=== PATIENT | male | born 1940 | race Caucasian/White ===

== ENCOUNTER → 2017-12-01 09:26 | Outpatient (CLI) | payer MEDICARE, SELFPAY ==
[2017-12-01 09:49] LABS: Basophils # 0.1 K/mm3 (0-0.2); Basophils % 0.8 % (0.1-2.0); Eosinophils # 0.4 K/mm3 (0.0-0.4); Eosinophils % 4.5 % (0.1-12.0); Hematocrit 50.3 % (42.0-52.0); Hemoglobin 16.5 g/dL (14.1-18.0); Lymphocytes # 4.3 K/mm3 (0.7-4.5); Lymphocytes % 52.1 K/mm3 (10-50); Mean Corpuscular HGB Conc 32.8 g/dL (31.8-35.4); Mean Corpuscular Hemoglobin 29.3 pg (27.0-31.2); Mean Corpuscular Volume 89.4 fl (80-94); Mean Platelet Volume 7.1 fl (7.4-10.4); Monocytes # 0.6 K/mm3 (0.1-1.0); Monocytes % 6.6 % (1.7-9.3); Platelet Count 272 K/mm3 (142-424); Red Blood Count 5.63 M/mm3 (4.60-6.20); Red Cell Distribution Width 14.3 % (11.5-17.5); White Blood Count 8.3 K/mm3 (4.8-10.8)
[2017-12-01 09:58] LABS: MANUAL DIFFERENTIAL MANUAL DIFFERENTIAL (MANUAL DIFF)
[2017-12-01 14:50] LABS: Eosinophils % 3 % (0-3); Lymphocytes % 59 % (10-50); Monocytes % 6 % (2-9); Neutrophils % 31 % (42-76); Total Cells Counted 100
[2017-12-01 14:51] LABS: Platelet Estimate Normal
[2017-12-01 14:52] LABS: RBC Morphology Normal
[2017-12-02 08:39] LABS: Free T4 (Free Thyroxine) 0.96 ng/dl (0.76-1.46)
[2017-12-02 08:52] LABS: Alanine Aminotransferase 35 U/L (12-78); Albumin Level 3.7 gm/dL (3.4-5.0); Albumin/Globulin Ratio 1.1 (1.1-1.8); Alkaline Phosphatase 60 U/L (46-116); Anion Gap 13.1 mEq/L (5-15); Aspartate Amino Transferase 14 U/L (15-37); Bilirubin,Total 0.5 mg/dL (0.2-1.0); Blood Urea Nitrogen 19 mg/dL (7-18); Calcium 8.8 mg/dL (8.5-10.1); Carbon Dioxide 29 mmol/L (21.0-32.0); Chloride 104 mmol/L (98-107); Creatinine,Serum 1.01 mg/dL (0.70-1.30); Estimated Glomerular Filt Rate 71 ml/min (>60); GFR (African American) 86 ML/MIN (>60); Globulin 3.5 gm/dl (1.3-3.2); Glucose 115 mg/dL (74-106); Potassium 4.1 mmoL/L (3.5-5.1); Sodium 142 mmol/L (136-145); Total Protein,Serum 7.2 gm/dL (6.4-8.2)
== END ==
PROVIDERS: Nurse Practitioner Family; Visit Provider Nurse Practitioner
DX: R53.83 Other fatigue (principal); C91.10 Chronic lymphocytic leukemia of B-cell type not having achieved remission; F17.200 Nicotine dependence, unspecified, uncomplicated
CPT/HCPCS: 36415; 80053; 82652; 84439; 84443; 85007; 85025

== ENCOUNTER → 2017-12-14 06:43 | Outpatient (CLI) | payer MEDICARE, SELFPAY ==
--- NOTE | 2017-12-14 06:45 | NM_ITS ---
History and Indications: Chest pain, shortness of breath tobacco use. Procedure: Patient exercised on Bashir protocol 6 minutes, resting heart rate was 58 beats prominent, resting blood pressure 136/83, with exercise maximum heart rate achieved was 105 bpm which is equal to 74% of the maximum predicted heart rate and a blood pressure was 168/84. Test was started due to shortness of breath patient denied any complained of chest pain, patient has adequate exercise capacity achieved 7mets of workload on treadmill, the blood pressure response to exercise was adequate, patient did not achieve the target heart rate. Electrocardiogram: Resting echocardiogram showed sinus bradycardia, with exercise there is [address] segment depression noted from the baseline EKG. The EKG portion of the exercise Myoview is positive for ischemia. Cardiac stress and resting SPECT images: Cardiac stress and resting SPECT images were obtained using technetium 99 Myoview 10.9 mCi at rest and 29.5 mCi at stress, gated SPECT further analysis of segmental wall motion and calculation of the ejection fraction also done. Cardiac stress and resting SPECT images show a fixed defect involving the posterobasal and inferoseptal wall consistent with area of prior myocardial scarring, without significant ricardo-infarct ischemia, computer derived ejection fraction is 61% with marked posterobasal and inferoseptal wall hypokinesis. Right ventricle is normal size and contractility. Conclusion: 1. The EKG portion of the exercise Myoview is positive for ischemia, patient has adequate exercise capacity achieved 7.0mets of workload on treadmill, the blood pressure response to exercise was adequate, test was stopped due to shortness of breath patient denied any complained of chest pain. Patient did not achieve the target heart rate. 2. Scintigraphic evidence of prior myocardial scarring involving the posterobasal and inferoseptal wall without significant reversible ischemia. Computer derived ejection fraction is 61% with segmental wall motion abnormality described above, right ventricle is normal size and contractility. 3. Abnormal exercise Myoview study.
--- NOTE | 2017-12-14 07:02 | CA_ITS ---
PROCEDURE: 2-D M-mode and color Doppler study INDICATIONS FOR THE TEST: Chest pain+ COPD Heart Murmur+ Tobacco Smoking+ Palpitations+ Fatigue Syncope Edema Hypertension Diabetes Mellitus Rheumatic Fever SOB+ZAMAN+Obesity Hyperlipidemia Family History HD+ Additional History dizziness, angina, CLL, Asthma PATIENT INFORMATION HEIGHT: 72 WEIGHT: 225 GENDER: Male B/P: 128/75 2-D/M-MODE INTERPRETATION: 2-D MEASUREMENTS OBSERVED VALUES IN CMS Right Ventricular Dimension (RVDd) Interventricular Septum (Thickness)(IVsd) Left Ventricular Internal Dimensions(LVIDd) Left Ventricular Posterior Wall (Thickness)(LVPWd) Aortic Root Aortic Cusp Separation Left Atrial Dimensions (LAD) 2D 1. Technically difficult study because of the patient's factor and poor acoustic windows, endocardial surfaces as well as the valvular structures of poorly visualized. 2. The left atrium is normal size, left ventricle is normal size, visually estimated ejection fraction 55% with no obvious regional wall motion abnormality. 3. The right atrium and right ventricle are mildly enlarged with normal contractility. 4. The aortic valve is minimally thickened and fibrosed. 5. The mitral and tricuspid valve leaflets are minimally thickened. 6. No significant pericardial effusion noted. 7. The pulmonic valve is poorly visualized. DOPPLER INTERROGATION: Doppler interrogation of the aortic, mitral and tricuspid valvular presence of mild mitral and tricuspid regurgitation, tricuspid regurgitant jet velocity is insufficient for calculation of the right ventricular systolic pressure, diastolic parameters are inconclusive. CONCLUSION: 1. Technically difficult study because of the patient's factor and poor acoustic windows as described above 2. Normal left ventricular size, preserved left ventricular systolic function, visually estimated ejection fraction 55% with no obvious regional wall motion abnormality, diastolic parameters are inconclusive. 3. Mild mitral and tricuspid regurgitation 4. Mildly enlarged right ventricle with normal contractility. 5. No significant pericardial effusion noted.
--- NOTE | 2017-12-14 07:14 | HMH.ITSHM ---
ASA FISH OIL GARLIC
== END ==
PROVIDERS: Family Provider Emergency Medicine; PCP Emergency Medicine; Visit Provider Internal Medicine
DX: R06.09 Other forms of dyspnea (principal); Z82.49 Family history of ischemic heart disease and other diseases of the circulatory system; F17.200 Nicotine dependence, unspecified, uncomplicated; I20.9 Angina pectoris, unspecified; C91.10 Chronic lymphocytic leukemia of B-cell type not having achieved remission
CPT/HCPCS: 78452; 93017; 93306; A9502

== ENCOUNTER → 2018-01-13 09:58 | Outpatient (CLI) | payer MEDICARE, SELFPAY ==
[2018-01-13 11:21] LABS: Anion Gap 11.3 mEq/L (5-15); Blood Urea Nitrogen 20 mg/dL (7-18); Carbon Dioxide 31 mmol/L (21.0-32.0); Chloride 107 mmol/L (98-107); Creatinine,Serum 0.94 mg/dL (0.70-1.30); Estimated Glomerular Filt Rate 78 ml/min (>60); GFR (African American) 94 ML/MIN (>60); Glucose 101 mg/dL (74-106); Potassium 4.3 mmoL/L (3.5-5.1); Sodium 145 mmol/L (136-145)
== END ==
PROVIDERS: Visit Provider Nurse Practitioner Family
DX: R79.9 Abnormal finding of blood chemistry, unspecified (principal)
CPT/HCPCS: 36415; 80048

== ENCOUNTER → 2018-02-06 11:02 | Outpatient (CLI) | payer MEDICARE, SELFPAY ==
--- NOTE | 2018-02-06 11:06 | XR_ITS ---
EXAM: XR lumbar spine min 4V HISTORY: ITS.REASON: Back Pain ORDERING PHYSICIAN: Enoc Jeffers MD PATIENT AGE: 77 years FINDINGS: Normal alignment. No fracture or dislocation. No lytic or blastic change. Mild multilevel endplate osteophytes are present with degenerative disc disease at L4-L5. Facet arthritic changes are present at L4-5 and L5-S1. There is mild degenerative disc disease also at L5-S1. IMPRESSION: Lumbar spondylosis with degenerative disc disease, facet arthritic change, and osteophytosis
--- NOTE | 2018-02-06 11:06 | XR_ITS ---
XR pelvis 1-2V HISTORY: ITS.REASON: Pain ORDERING PHYSICIAN: Enoc Jeffers MD PATIENT AGE: 77 years COMPARISON: FINDINGS: No obvious fracture or dislocation. No lytic or blastic change. There is mild sclerosis of the acetabular roof on the left and minimal osteophyte formation of the in inferior acetabulum on the left consistent with mild osteoarthritis. IMPRESSION: Mild osteoarthritis of the left hip
[2018-02-06 12:55] LABS: Basophils # 0.1 K/mm3 (0-0.2); Basophils % 0.7 % (0.1-2.0); Eosinophils # 0.4 K/mm3 (0.0-0.4); Hematocrit 51.9 % (42.0-52.0); Hemoglobin 17.4 g/dL (14.1-18.0); Lymphocytes # 5.4 K/mm3 (0.7-4.5); Mean Corpuscular HGB Conc 33.5 g/dL (31.8-35.4); Mean Corpuscular Hemoglobin 30.3 pg (27.0-31.2); Mean Corpuscular Volume 90.6 fl (80-94); Monocytes # 0.7 K/mm3 (0.1-1.0); Monocytes % 6.1 % (1.7-9.3); Neutrophils # 5.4 K/mm3 (1.8-7.8); Neutrophils % 45.2 % (37.0-80.0); Platelet Count 295 K/mm3 (142-424); Red Blood Count 5.73 M/mm3 (4.60-6.20); Red Cell Distribution Width 13.3 % (11.5-17.5)
[2018-02-06 13:40] LABS: Erythrocyte Sedimentation Rate 32 mm/hr (0-20)
[2018-02-06 14:15] LABS: Anion Gap 13.7 mEq/L (5-15); Blood Urea Nitrogen 19 mg/dL (7-18); Carbon Dioxide 29 mmol/L (21.0-32.0); Chloride 104 mmol/L (98-107); Creatinine,Serum 0.91 mg/dL (0.70-1.30); Estimated Glomerular Filt Rate 81 ml/min (>60); GFR (African American) 97 ML/MIN (>60); Glucose 99 mg/dL (74-106); Potassium 4.7 mmoL/L (3.5-5.1); Sodium 142 mmol/L (136-145)
[2018-02-09 06:19] LABS: Prostate Specific Ag 1.5 ng/mL (0.0-4.0)
[2018-02-09 06:20] LABS: PSA, Free 0.28 ng/mL
== END ==
PROVIDERS: PCP Emergency Medicine; Visit Provider Emergency Medicine
DX: M54.5 Low back pain (principal); R10.2 Pelvic and perineal pain; R35.0 Frequency of micturition
CPT/HCPCS: 36415; 72110; 72170; 80048; 84153; 84154; 85025; 85651

== ENCOUNTER → 2018-02-17 11:16 | Outpatient (CLI) | payer MEDICARE, SELFPAY ==
[2018-02-17 12:34] LABS: Chol/HDL Ratio 3.2 (1-3.5); Cholesterol 138 mg/dL (140-200); HDL Cholesterol 43 mg/dL (27-67); LDL Cholesterol 68 mg/dL (0-130); Triglycerides 136 mg/dL (30-200); VLDL Cholesterol 27 mg/dL (0-40)
== END ==
PROVIDERS: Visit Provider Emergency Medicine
DX: I25.10 Atherosclerotic heart disease of native coronary artery without angina pectoris (principal)
CPT/HCPCS: 36415; 80061

== ENCOUNTER → 2019-06-07 11:23 | Outpatient (CLI) | payer MEDICARE, SELFPAY ==
[2019-06-07 13:27] LABS: Alanine Aminotransferase 32 U/L (12-78); Albumin Level 3.7 gm/dL (3.4-5.0); Alkaline Phosphatase 85 U/L (46-116); Aspartate Amino Transferase 15 U/L (15-37); Bilirubin,Direct 0.1 mg/dL (0.0-0.2); Bilirubin,Indirect 0.3 mg/dL (0.0-0.9); Bilirubin,Total 0.4 mg/dL (0.2-1.0); Chol/HDL Ratio 4.1 (1-3.5); Cholesterol 145 mg/dL (140-200); HDL Cholesterol 35 mg/dL (27-67); LDL Cholesterol 56 mg/dL (0-130); Total Protein,Serum 7.3 gm/dL (6.4-8.2); Triglycerides 269 mg/dL (30-200); VLDL Cholesterol 54 mg/dL (0-40)
== END ==
PROVIDERS: Visit Provider Internal Medicine Cardiovascular Disease
DX: E78.5 Hyperlipidemia, unspecified (principal); F17.200 Nicotine dependence, unspecified, uncomplicated; I10 Essential (primary) hypertension; I25.10 Atherosclerotic heart disease of native coronary artery without angina pectoris
CPT/HCPCS: 80061; 80076

== ENCOUNTER → 2020-06-13 07:53 | Outpatient (CLI) | payer MEDICARE, SELFPAY ==
--- NOTE | 2020-06-13 07:53 | US_ITS ---
PROCEDURE: US ABD. AORTA SCREENING CLINICAL INDICATION: rule out AAA COMPARISON: No exams were available for comparison FINDINGS: No aortic aneurysm of the abdominal aorta evident. There is mild amount of plaque. Common iliacs have an unremarkable appearance bilaterally. IMPRESSION: No evidence of abdominal aortic aneurysm. Dictated by: Alvaro Padilla MD 06/13/2020 11:15 Alvaro Padilla MD in [facility] 06/13/2020 11:15
--- NOTE | 2020-06-13 07:56 | CA_ITS ---
APPROVED REPORT [employer] Worker: COREEN Laterality: Bilateral Study Quality: Good Indications: bilateral carotid bruits Doppler Spectral Velocity Analysis dICA (R) 84.50/28.30 cm/s dICA (L) 67.70/25.00 cm/s Nick (R) 114.90/25.40 cm/s Nick (L) 114.40/36.10 cm/s pICA (R) 95.80/27.80 cm/s pICA (L) 58.80/20.90 cm/s dCCA (R) 83.00/24.30 cm/s dCCA (L) 76.60/21.90 cm/s mCCA (R) 90.00/35.80 cm/s pCCA (L) 78.90/22.70 cm/s pCCA (R) 86.00/21.30 cm/s Vert (L) 57.40/17.90 cm/s Vert (R) 41.60/13.10 cm/s ICA/CCA 1.00 ICA/CCA 1.40 Findings Duplex evaluation demonstrates stenosis of the right proximal internal carotid artery <20% with PSV <140 cm/sec, EDV <100 cm/sec, and IC/CC Ratio <4.0.Duplex evaluation demonstrates stenosis of the left proximal internal carotid artery <20% with PSV <140 cm/sec, EDV <100 cm/sec, and IC/CC Ratio <4.0.Antegrade flow seen bilateral vertebral arteries. Conclusion Duplex evaluation demonstrates stenosis of the right proximal internal carotid artery <20% with PSV <140 cm/sec, EDV <100 cm/sec, and IC/CC Ratio <4.0.Duplex evaluation demonstrates stenosis of the left proximal internal carotid artery <20% with PSV <140 cm/sec, EDV <100 cm/sec, and IC/CC Ratio <4.0.Antegrade flow seen bilateral vertebral arteries. Electronically signed by : Alvaro Padilla MD 06/13/2020 15:25:30
== END ==
PROVIDERS: PCP Emergency Medicine; Visit Provider Internal Medicine Cardiovascular Disease
DX: E78.2 Mixed hyperlipidemia (principal); F17.200 Nicotine dependence, unspecified, uncomplicated; I10 Essential (primary) hypertension; I25.10 Atherosclerotic heart disease of native coronary artery without angina pectoris; R06.09 Other forms of dyspnea; R09.89 Other specified symptoms and signs involving the circulatory and respiratory systems; Z13.6 Encounter for screening for cardiovascular disorders
CPT/HCPCS: 76705; 93880

== ENCOUNTER → 2020-12-11 09:54 | Outpatient (CLI) | payer MEDICARE, SELFPAY ==
[2020-12-11 10:40] LABS: Bilirubin,Unconjugated 0.9 mg/dL (0.0-1.1)
[2020-12-11 10:41] LABS: Alanine Aminotransferase 26 U/L (12-78); Albumin Level 4.6 g/dl (3.5-5.0); Alkaline Phosphatase 80 U/L (38-126); Aspartate Amino Transferase 24 U/L (17-59); Chol/HDL Ratio 3.4 (1-3.5); Cholesterol 141 mg/dl (140-200); HDL Cholesterol 42 mg/dl (40-60); Total Protein,Serum 8.2 g/dl (6.3-8.2); Triglycerides 97 mg/dl (30-150); VLDL Cholesterol 19 mg/dL (0-40)
[2020-12-11 10:52] LABS: Direct LDL Cholesterol 73.01 mg/dL (100-129)
== END ==
PROVIDERS: Visit Provider Internal Medicine Cardiovascular Disease
DX: E78.2 Mixed hyperlipidemia (principal); F17.200 Nicotine dependence, unspecified, uncomplicated; I10 Essential (primary) hypertension; I25.10 Atherosclerotic heart disease of native coronary artery without angina pectoris
CPT/HCPCS: 36415; 80061; 80076

== ENCOUNTER → 2022-01-14 10:23 | Outpatient (CLI) | payer MEDICARE, SELFPAY ==
[2022-01-14 11:00] LABS: Basophils # 0.3 K/mm3 (0-0.2); Basophils % 2.4 % (0.1-2.0); Eosinophils # 0.3 K/mm3 (0.0-0.4); Eosinophils % 2.6 % (0.1-12.0); Hematocrit 51.1 % (42.0-52.0); Hemoglobin 16.7 g/dL (14.1-18.0); Lymphocytes # 5.7 K/mm3 (0.7-4.5); Lymphocytes % 52.1 % (10-50); Mean Corpuscular HGB Conc 32.7 g/dL (31.8-35.4); Mean Corpuscular Hemoglobin 30.2 pg (27.0-31.2); Mean Corpuscular Volume 92.2 fl (80-94); Mean Platelet Volume 7.8 fl (7.4-10.4); Monocytes # 0.6 K/mm3 (0.1-1.0); Monocytes % 5.3 % (1.7-9.3); Neutrophils # 4.1 K/mm3 (1.8-7.8); Neutrophils % 37.7 % (37.0-80.0); Platelet Count 261 K/mm3 (142-424); Red Blood Count 5.54 M/mm3 (4.60-6.20); Red Cell Distribution Width 13.8 % (11.5-17.5); White Blood Count 10.9 K/mm3 (4.8-10.8)
[2022-01-14 11:09] LABS: MANUAL DIFFERENTIAL MANUAL DIFFERENTIAL (MANUAL DIFF)
[2022-01-14 13:24] LABS: Chloride 106 mmol/L (98-107); Potassium 4.9 mmoL/L (3.5-5.1); Sodium 141 mmol/L (136-145)
[2022-01-14 13:26] LABS: Bilirubin,Unconjugated 0.6 mg/dL (0.0-1.1); Blood Urea Nitrogen 20 mg/dl (9-20); Estimated Glomerular Filt Rate 81 ml/min (>60); GFR (African American) 98 ML/MIN (>60)
[2022-01-14 13:27] LABS: Alanine Aminotransferase 34 U/L (12-78); Albumin Level 4.2 g/dl (3.5-5.0); Alkaline Phosphatase 75 U/L (38-126); Anion Gap 10.9 mEq/L (5-15); Aspartate Amino Transferase 30 U/L (17-59); Bilirubin,Direct 0.3 mg/dl (0.0-0.4); Bilirubin,Indirect 0.7 mg/dL (0.0-0.9); Calcium 8.8 mg/dl (8.4-10.2); Carbon Dioxide 29 mmol/L (22.0-30.0); Chol/HDL Ratio 3.4 (1-3.5); Cholesterol 121 mg/dl (140-200); Glucose 98 mg/dl (74-100); HDL Cholesterol 36 mg/dl (40-60); Total Protein,Serum 7.4 g/dl (6.3-8.2); Triglycerides 96 mg/dl (30-150); VLDL Cholesterol 19 mg/dL (0-40)
[2022-01-14 13:38] LABS: Direct LDL Cholesterol 62.69 mg/dL (100-129)
[2022-01-14 13:44] LABS: Free T4 (Free Thyroxine) 1.06 ng/dl (0.78-2.19)
[2022-01-14 13:58] LABS: Thyroid Stimulating Hormone 1.64 uIU/mL (0.465-4.68)
[2022-01-14 19:34] LABS: Eosinophils % 2 % (0-3); Lymphocytes % 47 % (10-50); Monocytes % 17 % (2-9); Neutrophils % 33 % (42-76); Platelet Estimate Normal; Total Cells Counted 100
== END ==
PROVIDERS: Visit Provider Internal Medicine
DX: C91.10 Chronic lymphocytic leukemia of B-cell type not having achieved remission (principal); E78.5 Hyperlipidemia, unspecified; F17.200 Nicotine dependence, unspecified, uncomplicated; I10 Essential (primary) hypertension; I20.8 Other forms of angina pectoris; R06.00 Dyspnea, unspecified; R09.89 Other specified symptoms and signs involving the circulatory and respiratory systems; Z82.49 Family history of ischemic heart disease and other diseases of the circulatory system
CPT/HCPCS: 36415; 80048; 80061; 80076; 83735; 84439; 84443; 85007; 85025

== ENCOUNTER → 2023-04-13 11:12 | Outpatient (CLI) | payer MEDICARE, SELFPAY ==
[2023-04-13 12:02] LABS: Basophils # 0.1 K/mm3 (0-0.2); Basophils % 0.7 % (0.1-2.0); Eosinophils # 0.4 K/mm3 (0.0-0.4); Eosinophils % 3.5 % (0.1-12.0); Hematocrit 51.6 % (42.0-52.0); Hemoglobin 16.3 g/dL (14.1-18.0); Lymphocytes # 5.5 K/mm3 (0.7-4.5); Lymphocytes % 49.5 % (10-50); Mean Corpuscular HGB Conc 31.6 g/dL (31.8-35.4); Mean Corpuscular Hemoglobin 28.8 pg (27.0-31.2); Mean Corpuscular Volume 90.9 fl (80-94); Mean Platelet Volume 7.6 fl (7.4-10.4); Monocytes # 0.6 K/mm3 (0.1-1.0); Monocytes % 5.2 % (1.7-9.3); Neutrophils # 4.6 K/mm3 (1.8-7.8); Neutrophils % 41.2 % (37.0-80.0); Platelet Count 249 K/mm3 (142-424); Red Blood Count 5.67 M/mm3 (4.60-6.20); Red Cell Distribution Width 13.8 % (11.5-17.5); White Blood Count 11.1 K/mm3 (4.8-10.8)
[2023-04-13 12:26] LABS: Alanine Aminotransferase 29 U/L (12-78); Albumin Level 4.5 g/dl (3.5-5.0); Alkaline Phosphatase 85 U/L (38-126); Anion Gap 10.4 mEq/L (5-15); Aspartate Amino Transferase 28 U/L (17-59); Bilirubin,Indirect 0.8 mg/dL (0.0-0.9); Bilirubin,Total 0.8 mg/dl (0.2-1.3); Blood Urea Nitrogen 19 mg/dl (9-20); Calcium 9.6 mg/dl (8.4-10.2); Carbon Dioxide 31 mmol/L (22.0-30.0); Chloride 106 mmol/L (98-107); Cholesterol 124 mg/dl (140-200); Estimated Glomerular Filt Rate 64 ml/min (>60); GFR (African American) 77 ML/MIN (>60); Glucose 106 mg/dl (74-100); HDL Cholesterol 41 mg/dl (40-60); Magnesium 2.1 mg/dl (1.6-2.3); Potassium 5.4 mmoL/L (3.5-5.1); Sodium 142 mmol/L (136-145); Total Protein,Serum 7.7 g/dl (6.3-8.2); Triglycerides 112 mg/dl (30-150); VLDL Cholesterol 22 mg/dL (0-40)
[2023-04-13 12:39] LABS: Direct LDL Cholesterol 65.79 mg/dL (100-129)
[2023-04-13 12:51] LABS: Free T4 (Free Thyroxine) 0.91 ng/dl (0.78-2.19)
[2023-04-13 12:55] LABS: Thyroid Stimulating Hormone 3.01 uIU/mL (0.465-4.68)
== END ==
PROVIDERS: PCP Emergency Medicine; Visit Provider Nurse Practitioner Family
DX: E78.5 Hyperlipidemia, unspecified (principal); F17.200 Nicotine dependence, unspecified, uncomplicated; I10 Essential (primary) hypertension; I25.10 Atherosclerotic heart disease of native coronary artery without angina pectoris; R06.00 Dyspnea, unspecified; R09.89 Other specified symptoms and signs involving the circulatory and respiratory systems
CPT/HCPCS: 36415; 80048; 80061; 80076; 83735; 84439; 84443; 85025

== ENCOUNTER → 2023-04-21 12:03 | Outpatient (CLI) | payer MEDICARE, SELFPAY ==
[2023-04-21 13:54] LABS: Anion Gap 13.6 mEq/L (5-15); Blood Urea Nitrogen 23 mg/dl (9-20); Calcium 9.6 mg/dl (8.4-10.2); Carbon Dioxide 31 mmol/L (22.0-30.0); Chloride 102 mmol/L (98-107); Estimated Glomerular Filt Rate 58 ml/min (>60); GFR (African American) 70 ML/MIN (>60); Glucose 105 mg/dl (74-100); Potassium 5.6 mmoL/L (3.5-5.1); Sodium 141 mmol/L (136-145)
== END ==
PROVIDERS: PCP Emergency Medicine; Visit Provider Internal Medicine
DX: E87.5 Hyperkalemia (principal)
CPT/HCPCS: 36415; 80048

== ENCOUNTER → 2023-05-06 14:06 | Outpatient (CLI) | payer MEDICARE, SELFPAY ==
--- NOTE | 2023-05-06 14:15 | CA_ITS ---
APPROVED REPORT EXAM: Comprehensive 2D, Doppler, and color-flow Echocardiogram Class B Driver: Roseline Yadav RT(R) Ht: 6 ft 0 in Wt: 224lbs BSA: 2.24 BP: 124/70 mmHg Indications: SOB, CP, murmur, smoker, palpitations, fatigue, edema, HTN, hyperlipidemia. Very limited scan secondary to lung interference. Best images possible. M-Mode Dimensions RVDd 2.67 cm (0.9-2.6) LVDd 3.47 cm (3.5-5.7) LVDs 2.50 cm (3.5-5.7) IVSd 1.02 cm (0.6-1.1) PWd 1.27 cm (0.6-1.1) EF (Teich) 55.20% FS 28.00% EDV (Teich) 49.80 mL ESV (Teich) 22.30 mL LV Diastology E Decel Time 280.00 (160-240 msec) E/A Ratio 1.0 Mitral Valve MV E Max Faisal. 63.00 (40-130 cm/s) MV A Velocity 60.00 (40-130 cm/s) E/A Ratio 1.06 MV Decel. Time 280.00 (160-240 ms) MV PHT 82.00 ms Left Ventricle The left ventricle is normal size. The left ventricular systolic function is normal. The left ventricular ejection fraction is within the normal range. The LV wall thickness cannot be estimated due to limited images. There is normal LV segmental wall motion. LVEF is 60%. Right Ventricle The right ventricle is normal size. The right ventricular systolic function is normal. Atria The left atrium size is normal. The right atrium size is normal. There is no Doppler evidence of interatrial shunt. Aortic Valve The aortic valve is not well visualized. Mitral Valve The mitral valve leaflets are mildly thickened. No evidence of mitral valve stenosis. There is no mitral valve regurgitation noted. Tricuspid Valve The tricuspid valve leaflets are thin and pliable. There is trace tricuspid valve regurgitation noted. Pulmonic Valve The pulmonic valve is not well visualized. Great Vessels The aortic root is not well visualized. The IVC is not well visualized. Pericardium There is no pericardial effusion. Other Information Study Quality: Technically Difficult. Technically limited study due to lung disease, poor accoustic windows. Conclusion This was a technically difficult and technically limited study due to history of lung disease and poor accoustic windows. Normal biventricular systolic function. No significant MV or TV disease. The AV and PV are not well visualized. Electronically signed by : Lily Montelongo, 05/08/2023 14:42:05
== END ==
PROVIDERS: PCP Emergency Medicine; Visit Provider Nurse Practitioner Family
DX: E78.5 Hyperlipidemia, unspecified (principal); I10 Essential (primary) hypertension; I25.10 Atherosclerotic heart disease of native coronary artery without angina pectoris; R06.00 Dyspnea, unspecified
CPT/HCPCS: 93306

== ENCOUNTER 2024-04-17 14:19 | Outpatient (CLI) | payer MEDICARE, SELFPAY ==
[2024-04-17 15:01] LABS: Basophils # 0.2 K/mm3 (0-0.2); Basophils % 1.2 % (0.1-2.0); Eosinophils # 0.5 K/mm3 (0.0-0.4); Eosinophils % 3.4 % (0.1-12.0); Hematocrit 48.7 % (42.0-52.0); Lymphocytes # 8.6 K/mm3 (0.7-4.5); Lymphocytes % 60.7 % (10-50); Mean Corpuscular HGB Conc 32.8 g/dL (31.8-35.4); Mean Corpuscular Hemoglobin 30.5 pg (27.0-31.2); Mean Corpuscular Volume 92.7 fl (80-94); Mean Platelet Volume 7.7 fl (7.4-10.4); Monocytes # 0.6 K/mm3 (0.1-1.0); Monocytes % 4.4 % (1.7-9.3); Neutrophils # 4.3 K/mm3 (1.8-7.8); Neutrophils % 30.4 % (37.0-80.0); Platelet Count 246 K/mm3 (142-424); Red Blood Count 5.25 M/mm3 (4.60-6.20); Red Cell Distribution Width 14.6 % (11.5-17.5); White Blood Count 14.1 K/mm3 (4.8-10.8)
[2024-04-17 15:04] LABS: MANUAL DIFFERENTIAL MANUAL DIFFERENTIAL (MANUAL DIFF)
[2024-04-17 15:25] LABS: Alanine Aminotransferase 21 U/L (12-78); Albumin Level 4.1 g/dl (3.5-5.0); Alkaline Phosphatase 83 U/L (38-126); Anion Gap 11.3 mEq/L (5-15); Aspartate Amino Transferase 21 U/L (17-59); Bilirubin,Indirect 0.7 mg/dL (0.0-0.9); Bilirubin,Total 0.7 mg/dl (0.2-1.3); Bilirubin,Unconjugated 0.8 mg/dL (0.0-1.1); Blood Urea Nitrogen 23 mg/dl (9-20); Carbon Dioxide 30 mmol/L (22.0-30.0); Chloride 108 mmol/L (98-107); Cholesterol 136 mg/dl (140-200); Estimated Glomerular Filt Rate 64 ml/min (>60); GFR (African American) 77 ML/MIN (>60); Glucose 92 mg/dl (74-100); HDL Cholesterol 46 mg/dl (40-60); Potassium 5.3 mmoL/L (3.5-5.1); Sodium 144 mmol/L (136-145); Triglycerides 95 mg/dl (30-150); VLDL Cholesterol 19 mg/dL (0-40)
[2024-04-17 15:36] LABS: Direct LDL Cholesterol 67.91 mg/dL (100-129)
[2024-04-17 15:41] LABS: Free T4 (Free Thyroxine) 0.95 ng/dl (0.78-2.19)
[2024-04-17 15:55] LABS: Thyroid Stimulating Hormone 2.59 uIU/mL (0.465-4.68)
[2024-04-17 15:58] LABS: Eosinophils % 1 % (0-3); Lymphocytes % 68 % (10-50); Monocytes % 3 % (2-9); Neutrophils % 27 % (42-76); Platelet Estimate Normal; RBC Morphology Normal; Total Cells Counted 100
== END 2024-04-17 23:59 | disposition home or self-care (01) ==
PROVIDERS: PCP Internal Medicine; Visit Provider Nurse Practitioner Family
DX: E78.2 Mixed hyperlipidemia (principal); I11.9 Hypertensive heart disease without heart failure; I25.10 Atherosclerotic heart disease of native coronary artery without angina pectoris; R06.09 Other forms of dyspnea; F17.210 Nicotine dependence, cigarettes, uncomplicated
CPT/HCPCS: 36415; 80048; 80050; 80061; 80076; 84439; 84443; 85007; 85025

== ENCOUNTER 2024-05-03 18:17 | Outpatient (CLI) | payer MEDICARE, SELFPAY ==
[2024-05-03 18:23] LABS: Basophils # 0.1 K/mm3 (0-0.2); Basophils % 0.8 % (0.1-2.0); Eosinophils # 0.3 K/mm3 (0.0-0.4); Eosinophils % 2.5 % (0.1-12.0); Hematocrit 50.7 % (42.0-52.0); Hemoglobin 16.5 g/dL (14.1-18.0); Lymphocytes # 8.4 K/mm3 (0.7-4.5); Lymphocytes % 61.7 % (10-50); Mean Corpuscular HGB Conc 32.5 g/dL (31.8-35.4); Mean Corpuscular Hemoglobin 30.3 pg (27.0-31.2); Mean Corpuscular Volume 93.3 fl (80-94); Mean Platelet Volume 8.5 fl (7.4-10.4); Monocytes # 0.6 K/mm3 (0.1-1.0); Monocytes % 4.3 % (1.7-9.3); Neutrophils # 4.2 K/mm3 (1.8-7.8); Neutrophils % 30.6 % (37.0-80.0); Platelet Count 271 K/mm3 (142-424); Red Blood Count 5.44 M/mm3 (4.60-6.20); Red Cell Distribution Width 14.3 % (11.5-17.5); White Blood Count 13.6 K/mm3 (4.8-10.8)
[2024-05-03 18:25] LABS: MANUAL DIFFERENTIAL MANUAL DIFFERENTIAL (MANUAL DIFF)
[2024-05-03 18:48] LABS: Alanine Aminotransferase 21 U/L (12-78); Albumin Level 4.4 g/dl (3.5-5.0); Albumin/Globulin Ratio 1.3 (1.1-1.8); Alkaline Phosphatase 98 U/L (38-126); Anion Gap 12.2 mEq/L (5-15); Aspartate Amino Transferase 24 U/L (17-59); Bilirubin,Total 1.1 mg/dl (0.2-1.3); Blood Urea Nitrogen 21 mg/dl (9-20); Calcium 9.9 mg/dl (8.4-10.2); Carbon Dioxide 30 mmol/L (22.0-30.0); Chloride 105 mmol/L (98-107); Estimated Glomerular Filt Rate 64 ml/min (>60); GFR (African American) 77 ML/MIN (>60); Globulin 3.3 g/dL (1.3-3.2); Glucose 95 mg/dl (74-100); Potassium 5.2 mmoL/L (3.5-5.1); Sodium 142 mmol/L (136-145); Total Protein,Serum 7.7 g/dl (6.3-8.2)
[2024-05-03 19:19] LABS: Prostate Specific Ag Screen 1.5 ng/ml (0.0-4.0)
[2024-05-03 19:26] LABS: Eosinophils % 2 % (0-3); Lymphocytes % 61 % (10-50); Monocytes % 4 % (2-9); Neutrophils % 31 % (42-76); Total Cells Counted 100
[2024-05-03 19:27] LABS: Platelet Estimate Normal; RBC Morphology Normal
[2024-05-03 22:13] LABS: Hemoglobin A1C 5.6 % (4.0-6.0)
[2024-05-05 17:51] LABS: Peripheral Smear Review Scanned Result
[2024-05-14 09:09] LABS: 1,25 Dihydroxy Vitamin D 42 pg/mL (.); 1,25-Dihydroxy, Vitamin D-2 <10 pg/mL (.); 1,25-Dihydroxy, Vitamin D-3 42 pg/mL (.)
== END 2024-05-03 23:59 | disposition home or self-care (01) ==
LOC: LAB.DROPOF 18:17
PROVIDERS: PCP Internal Medicine; Visit Provider Internal Medicine
DX: Z13.1 Encounter for screening for diabetes mellitus (principal); Z12.5 Encounter for screening for malignant neoplasm of prostate; E87.5 Hyperkalemia; I10 Essential (primary) hypertension; C91.10 Chronic lymphocytic leukemia of B-cell type not having achieved remission; F17.210 Nicotine dependence, cigarettes, uncomplicated
CPT/HCPCS: 80053; 82652; 83036; 85007; 85025; 85027; G0103

== ENCOUNTER 2025-01-03 12:20 | Outpatient (CLI) | payer MEDICARE, SELFPAY ==
[2025-01-03 17:04] LABS: Basophils # 0.1 K/mm3 (0-0.2); Basophils % 0.8 % (0.1-2.0); Eosinophils # 0.5 K/mm3 (0.0-0.4); Eosinophils % 3.1 % (0.1-12.0); Hematocrit 49.5 % (42.0-52.0); Lymphocytes # 9.7 K/mm3 (0.7-4.5); Mean Corpuscular HGB Conc 32.3 g/dL (31.8-35.4); Mean Corpuscular Hemoglobin 28.9 pg (27.0-31.2); Mean Corpuscular Volume 89.5 fl (80-94); Monocytes # 0.9 K/mm3 (0.1-1.0); Monocytes % 5.6 % (1.7-9.3); Neutrophils # 4.4 K/mm3 (1.8-7.8); Neutrophils % 28.2 % (37.0-80.0); Platelet Count 253 K/mm3 (142-424); Red Blood Count 5.53 M/mm3 (4.60-6.20); Red Cell Distribution Width 14.4 % (11.5-17.5); White Blood Count 15.7 K/mm3 (4.8-10.8)
[2025-01-03 17:11] LABS: MANUAL DIFFERENTIAL MANUAL DIFFERENTIAL (MANUAL DIFF)
[2025-01-03 17:36] LABS: Eosinophils % 6 % (0-3); Lymphocytes % 41 % (10-50); Monocytes % 1 % (2-9); Neutrophils % 23 % (42-76); Total Cells Counted 100
[2025-01-03 17:39] LABS: Platelet Estimate Normal; RBC Morphology Normal
[2025-01-03 18:13] LABS: Alanine Aminotransferase 22 U/L (12-78); Albumin Level 4.3 g/dl (3.5-5.0); Albumin/Globulin Ratio 1.3 (1.1-1.8); Alkaline Phosphatase 87 U/L (38-126); Anion Gap 13.5 mEq/L (5-15); Aspartate Amino Transferase 24 U/L (17-59); Blood Urea Nitrogen 19 mg/dl (9-20); Calcium 9.7 mg/dl (8.4-10.2); Carbon Dioxide 27 mmol/L (22.0-30.0); Chloride 105 mmol/L (98-107); Chol/HDL Ratio 2.9 (1-3.5); Cholesterol 116 mg/dl (140-200); Estimated Glomerular Filt Rate 71 ml/min (>60); GFR (African American) 86 ML/MIN (>60); Globulin 3.2 g/dL (1.3-3.2); Glucose 100 mg/dl (74-100); HDL Cholesterol 40 mg/dl (40-60); Potassium 4.5 mmoL/L (3.5-5.1); Sodium 141 mmol/L (136-145); Total Protein,Serum 7.5 g/dl (6.3-8.2); Triglycerides 101 mg/dl (30-150); VLDL Cholesterol 20 mg/dL (0-40)
[2025-01-03 18:33] LABS: Direct LDL Cholesterol 63.32 mg/dL (100-129)
== END 2025-01-03 23:59 | disposition home or self-care (01) ==
LOC: LAB.DROPOF 01-04 12:54
PROVIDERS: PCP Family Medicine; Visit Provider Family Medicine
DX: E78.2 Mixed hyperlipidemia (principal); C91.10 Chronic lymphocytic leukemia of B-cell type not having achieved remission
CPT/HCPCS: 80053; 80061; 85007; 85025; 85027

== ENCOUNTER 2025-05-26 17:11 | Emergency (ER) | payer MEDICARE, SELFPAY ==
[2025-05-26] VITALS (8 sets, daily range): BP systolic 121–142; BP diastolic 67–87; PULSE 64–102; RESP 11–20; TEMP 36.6–36.7; O2SAT 92–96; BMI 30.5
--- NOTE | 2025-05-26 17:30 | CT_ITS ---
PROCEDURE INFORMATION: Exam: CT Head Without Contrast Exam date and time: 05/26/2025 5:36 PM Age: 85 years old Clinical indication: Stroke-like symptoms; Altered mental status/memory loss; Additional info: Possible stroke- ataxia lkn 3p TECHNIQUE: Imaging protocol: Computed tomography of the head without contrast. Radiation optimization: All CT scans at this facility use at least one of these dose optimization techniques: automated exposure control; mA and/or kV adjustment per patient size (includes targeted exams where dose is matched to clinical indication); or iterative reconstruction. Other technique: STROKE PROTOCOL was implemented. COMPARISON: No relevant prior studies available. FINDINGS: Brain: Periventricular and subcortical small vessel ischemic changes appear chronic. Mild atrophy associated. No acute hemorrhage, mass effect, midline shift, or extra-axial fluid collection. Cerebral ventricles: No ventriculomegaly. Paranasal sinuses: Visualized sinuses are unremarkable. No fluid levels. Mastoid air cells: Visualized mastoid air cells are well aerated. Bones: Unremarkable. No acute fracture. Soft tissues: Unremarkable. IMPRESSION: No acute intracranial abnormality identified. ASSESSMENT: ASPECTS ([place] Stroke Program Early CT Score) is 10.
--- NOTE | 2025-05-26 17:30 | ECG_ITS ---
APPROVED REPORT Exam: Resting ECG HR:88 bpm ECG Measurements Heart Rate 88 AXES [place] 117 P -78 QRSd 97 QRS 29 QT 389 T 94 QTc 434 Conclusion JUNCTIONAL RHYTHM INCOMPLETE RIGHT BUNDLE BRANCH BLOCK [90+ ms QRS DURATION, TERMINAL R IN V1/V2, 40+ ms S IN I/aVL/V4/V5/V6] SEPTAL MYOCARDIAL INFARCTION , PROBABLY OLD [40+ ms Q WAVE IN V1/V2] ABNORMAL ECG UNCONFIRMED REPORT Electronically signed by : NITA VALERIO, 05/27/2025 23:18:59
--- NOTE | 2025-05-26 17:30 | CT_ITS ---
PROCEDURE INFORMATION: Exam: CTA Neck With Contrast Exam date and time: 05/26/2025 5:37 PM Age: 85 years old Clinical indication: Stroke-like symptoms; Altered mental status/memory loss; Additional info: Possible stroke TECHNIQUE: Imaging protocol: Computed tomographic angiography of the neck with contrast. Exam focused on the cervical segments of the vasculature. 3D rendering (Not supervised by radiologist): MIP and/or 3D reconstructed images were created by the technologist. Radiation optimization: All CT scans at this facility use at least one of these dose optimization techniques: automated exposure control; mA and/or kV adjustment per patient size (includes targeted exams where dose is matched to clinical indication); or iterative reconstruction. Contrast material: ISOVUE; Contrast volume: 80 ml; Contrast route: INTRAVENOUS (IV); COMPARISON: CT HEAD/BRAIN WO CON 05/26/2025 5:36 PM FINDINGS: Right common carotid artery: No stenosis. No dissection or occlusion. Right internal carotid artery: No stenosis of the extracranial segment. No dissection or occlusion. Right external carotid artery: No occlusion or stenosis of the origin. Left common carotid artery: No stenosis. No dissection or occlusion. Left internal carotid artery: No stenosis of the extracranial segment. No dissection or occlusion. Left external carotid artery: No occlusion or stenosis of the origin. Right vertebral artery: No stenosis. No dissection or occlusion. Left vertebral artery: No stenosis. No dissection or occlusion. Soft tissues: Normal. No significant soft tissue swelling. Bones/joints: No acute fracture. IMPRESSION: No stenosis or occlusion. REFERENCES: NASCET CRITERIA. The degree of stenosis in the cervical segment of the internal carotid artery is based on NASCET criteria. Normal is no stenosis. Mild is less than 50% stenosis. Moderate is 50-69% stenosis. Severe is 70% to 99% stenosis. Total occlusion is no detectable patent lumen.
--- NOTE | 2025-05-26 17:30 | CT_ITS ---
PROCEDURE INFORMATION: Exam: CTA Head With Contrast, Arteriography Exam date and time: 05/26/2025 5:37 PM Age: 85 years old Clinical indication: Stroke-like symptoms; Altered mental status/memory loss; Additional info: Possible stroke TECHNIQUE: Imaging protocol: Computed tomographic angiography of the head with contrast. Exam focused on the arteries. 3D rendering (Not supervised by radiologist): MIP and/or 3D reconstructed images were created by the technologist. Radiation optimization: All CT scans at this facility use at least one of these dose optimization techniques: automated exposure control; mA and/or kV adjustment per patient size (includes targeted exams where dose is matched to clinical indication); or iterative reconstruction. Contrast material: ISOVUE; Contrast volume: 80 ml; Contrast route: INTRAVENOUS (IV); COMPARISON: CT HEAD/BRAIN WO CON 05/26/2025 5:36 PM FINDINGS: ANTERIOR CIRCULATION: Right internal carotid artery: Intracranial segment is patent with no significant stenosis. No aneurysm. Right middle cerebral artery: No occlusion or significant stenosis. No aneurysm. Right anterior cerebral artery: No occlusion or significant stenosis. No aneurysm. Left internal carotid artery: Intracranial segment is patent with no significant stenosis. No aneurysm. Left middle cerebral artery: No occlusion or significant stenosis. No aneurysm. Left anterior cerebral artery: No occlusion or significant stenosis. No aneurysm. POSTERIOR CIRCULATION: Right vertebral artery: No occlusion or significant stenosis. No aneurysm. Left vertebral artery: No occlusion or significant stenosis. No aneurysm. Basilar artery: No occlusion or significant stenosis. No aneurysm. Right posterior cerebral artery: No occlusion or significant stenosis. No aneurysm. Left posterior cerebral artery: No occlusion or significant stenosis. No aneurysm. Brain: No definite mass, mass effect, or midline shift. Cerebral ventricles: No ventriculomegaly. Bones/joints: Unremarkable. No acute fracture. Soft tissues: Unremarkable. IMPRESSION: No acute large vessel stenosis or occlusion.
[2025-05-26] MEDS: SODIUM CHLORIDE 0.9% 10ML SYR (RAD ONLY) 10 ML IV (17:37)
[2025-05-26] MEDS: IOPAMIDOL-370 (76%);100ML BOTTLE 80 ML IV (17:37)
[2025-05-26] MEDS: 0.9 % SODIUM CHLORIDE 50 ML VIAL IV (17:37)
[2025-05-26 17:43] LABS: Hematocrit 47.9 % (42.0-52.0); Hemoglobin 15.6 g/dL (14.1-18.0); Immature Granulocytes % 0.2 %; Mean Corpuscular HGB Conc 32.6 g/dL (31.8-35.4); Mean Corpuscular Hemoglobin 28.6 pg (27.0-31.2); Mean Corpuscular Volume 87.7 fl (80-94); Nucleated Red Blood Cells % 0 %; Platelet Count 257 K/mm3 (142-424); Red Blood Count 5.46 M/mm3 (4.60-6.20); Red Cell Distribution Width-SD 46.3 fL; White Blood Count 20.4 K/mm3 (4.8-10.8)
[2025-05-26] MEDS: LACTATED RINGERS 1000ML 1,000 ML 999 ML IV (17:44)
--- NOTE | 2025-05-26 17:47 | ED_ITS ---
Discharge Plan Disposition Patient Disposition: er [facility] Hospital Prescriptions Prescriptions: No Action omega-3 fatty acids [Fish Oil] 300 mg capsule 300 mg PO DAILY garlic 1 mg capsule 1 mg PO DAILY aspirin [Adult Aspirin Regimen] 81 mg tablet,delayed release (DR/EC) 81 mg PO DAILY Qty: 30 5RF atorvastatin 40 mg tablet See Rx Instructions .ROUTE .COMPLEX Qty: 90 3RF Dose Instruction: Take 1 tablet by mouth once daily Rx Instructions: Take 1 tablet by mouth once daily Referrals Follow up/Referrals: Ramos Dominguez MD [Primary Care Provider, Family Practice] - See instructions Clinical Impressions Clinical Impression: Ataxia, Near syncope Print Language Print Language: Polish Discharge ED Provider: Aimee Argueta General Adult HPI General Chief complaint: Neuro Symptoms/Deficit Stated complaint: feeling funny and can barely walk Time Seen by Provider: 05/26/25 17:22 Mode of Arrival: Wheelchair Source of Information: Patient and Relative Description of Symptoms (Recalled from ER Triage Doc. by RN): Patient presents to ED from home with reports of unsteady gait and dizziness and started at 1500, Patient states he got up from sitting and was suddenly unable to keep his balance. Patient is alert and oriented. Dr. Argueta called to bedside. STROKE ALERT called at [phone]. History of Present Illness HPI narrative: Patient is an 85-year-old male presenting today with sudden unsteadiness. States this happened about 3:00. Has been positional in the sense that he states that he just cannot walk. Denies any changes in strength or weakness or sensation. Does not particularly state that this is worse with any type of movement but does seem to get worse with sitting up. Takes aspirin but is not on any other anticoagulants and denies any other significant past medical history. States he simply could not walk prior to arrival. Related Data Home Medications ?Medication ?Instructions ?Recorded ?Confirmed garlic 1 mg capsule 1 mg PO DAILY 12/01/1704/17 omega-3 fatty acids 300 mg capsule 300 mg PO DAILY 10/2004/17/25 (Fish Oil) Previous Rx's ?Medication ?Instructions ?Recorded aspirin 81 mg tablet,delayed 81 mg PO DAILY #30 tabs 0 06/05/20 release (Adult Aspirin Regimen) atorvastatin 40 mg tablet See Rx Instructions .Route 0 05/23/25 .COMPLEX #90 tabs Allergies Allergy/AdvReac Type Severity Reaction Status Date / Time No Known Allergies Allergy Verified 04/17/25 14:36 [facility] Disclaimer: The information contained in this section may have been updated after the patient was seen, as this information can be updated by other users. Medical History (Updated 05/26/25 @ 17:50 by Aimee Argueta MD) Other forms of dyspnea Localized edema Edema CLL (chronic lymphocytic leukemia) Tobacco dependence CAD (coronary artery disease) HTN (hypertension) HLD (hyperlipidemia) Hyperkalemia Bilateral carotid bruits Social History Smoking Status: Current every day smoker tobacco type: cigarettes packs per day: 1 second hand exposure: Yes alcohol intake: never substance use type: denies use current occupational status: retired Travel in the last 8 weeks?: None household members: none housing: house current occupational exposures/hazards: No caffeine: No Have you lived/traveled outside [place] in past 30 days?: No Contact w/someone who lives/traveled outside [place] past 30 days?: No Exposure to someone with infectious disease in past 14 days?: No Do you have a fever (greater than 100.4 F or 38 C)?: No Have you tested positive for COVID-19?: No Exposed to someone with COVID-19 in past 14 days?: No Do you have a sore throat?: No Do you have a cough?: No Do you have any weakness?: No Do you have any diarrhea?: No Are you experiencing any unusual bleeding?: No Do you have any muscle aches/pain?: No Do you have any abdominal pain?: No Are you experiencing loss of taste or smell?: No Other Medical History Have you received the Flu Vaccine for this season: No Have you received the Pneumonia Vaccine: No ROS Obtained: Yes All systems reviewed & no additional complaints except as documented Physical Exam General General appearance: alert and in no apparent distress Respiratory Respiratory exam: Present normal lung sounds bilaterally and respiratory distress Cardiovascular Cardiovascular exam: Present regular rate and normal rhythm Neurological Exam Neurological exam: Present alert, oriented X3, CN II-XII intact and other (Patient has normal finger-nose [id number] bilaterally however upon trying to walk him he was profoundly ataxic and could not hold his balance at all); Absent normal gait or motor sensory deficit Medical Decision Making Medical Records Screening: Per USPSTF and CDC recommendations, given the prevalence of disease in our region, it is our hospital?s policy to screen for HIV and viral Hepatitis for all patients aged 18 and over and those with ongoing risk factors. Roger Inquiry Pt receiving controlled substance: No Vital Signs: 05/26/25 17:26 05/26/25 17:31 05/26/25 17:44 Temperature 97.8 F Temperature Source Oral Pulse Rate 102 H 82 Pulse Rate [Left] 84 Respiratory Rate 19 13 Blood Pressure 133/76 121/70 Blood Pressure [Right Arm] 142/87 H Blood Pressure Mean Blood Pressure Mean [Right Arm] 105 Blood Pressure Source [Right Arm] Automatic Cuff Blood Pressure Position [Right Arm] Supine 02 Sat by Pulse Oximetry 95 94 L 95 Oxygen Delivery Method Room Air 05/26/25 18:00 Temperature Temperature Source Pulse Rate 82 Pulse Rate [Left] Respiratory Rate 12 Blood Pressure 121/72 Blood Pressure [Right Arm] Blood Pressure Mean 86 Blood Pressure Mean [Right Arm] Blood Pressure Source [Right Arm] Blood Pressure Position [Right Arm] 02 Sat by Pulse Oximetry 92 L Oxygen Delivery Method Lab Data Lab results reviewed: Yes I reviewed the patient's lab results. Lab Results 05/26/25 17:25: WBC 20.4 H*, RBC 5.46, Hgb 15.6, Hct 47.9, MCV 87.7, MCH 28.6, MCHC 32.6, RDW 14.3, Plt Count 257, MPV 9.5, Neut % (Auto) 30.8 L, Lymph % (Auto) 61.4 H, [place] % (Auto) 4.5, Eos % (Auto) 2.6, Baso % (Auto) 0.5, Neut # (Auto) 6.3, Lymph # (Auto) 12.5 H, [place] # (Auto) 0.9, Eos # (Auto) 0.5 H, Baso # (Auto) 0.1, Total Counted 100, Neutrophils % (Manual) 31 L, Lymphocytes % (Manual) 47, Atypical Lymphs % 11.0, Monocytes % (Manual) 10 H, Eosinophils % (Manual) 1, Platelet Estimate Normal, RBC Morphology Normal, PT 11.5, INR 1.04, APTT 25.4, Sodium 141, Potassium 3.8, Chloride 104, Carbon Dioxide 29, Anion Gap 11.8, BUN 23 H, Creatinine 1.20, Estimated Creat Clear 64, Estimated GFR 57 L, Est GFR ( Amer) 69, Glucose 113 H, Calcium 9.4, Total Bilirubin 0.9, AST 31, ALT 23, Alkaline Phosphatase 82, Troponin I < 0.01, Total Protein 8.0, Albumin 4.6, Globulin 3.4 H, Albumin/Globulin Ratio 1.4, Triglycerides 137, C holesterol 131 L, LDL Cholesterol Direct 65.97 L, VLDL Cholesterol 27, HDL Cholesterol 37 L, Cholesterol/HDL Ratio 3.5, Plasma/Serum Alcohol < 10 05/26/25 17:25 05/26/25 17:25 Orders (Tests/Meds): ED MEDICATIONS Generic Name Dose Route Start Last Admin Trade Name Freq PRN Reason Stop Dose Admin Sodium Chloride 10 ml 05/26/25 17:30 Sodium Chloride 0.9% 10ml Flush Syringe IV 06/25/25 17:29 NEEDED PRN Maintain IV Site Sodium Chloride 10 ml 05/26/25 17:36 05/26/25 17:37 Sodium Chloride 0.9% 10ml Syr (Rad Only) IV 06/25/25 17:35 10 ml NEEDED PRN Administration Maintain IV Site Discontinued Medications Generic Name Dose Route Start Last Admin Trade Name Freq PRN Reason Stop Dose Admin Lactated Ringer's 1,000 mls @ 999 mls/hr 05/26/25 17:30 05/26/25 17:44 Lactated Ringer's 1000 Ml Bag IV 05/26/25 18:30 999 mls/hr .Q1H1M ONE Administration Iopamidol 80 ml 05/26/25 17:36 05/26/25 17:37 Iopamidol-370 (76%);100ml Bottle IV 05/26/25 17:37 80 ml ONCE ONE Administration Sodium Chloride 50 ml 05/26/25 17:36 05/26/25 17:37 0.9 % Sodium Chloride 50 Ml Vial IV 05/26/25 17:37 50 ml ONCE ONE Administration ORDERS Category Date Time Status CT angio head Stat Cat Scan 05/26/25 17:[address] angio neck Stat Cat Scan 05/26/25 17:[address] head/brain wo con Stat Cat Scan 05/26/25 17:30 Completed Activated Partial Thrombo Time Stat Lab 05/26/25 17:25 Completed Complete Blood Count Auto Diff Stat Lab 05/26/25 17:25 Completed Comprehensive Metabolic Panel Stat Lab 05/26/25 17:25 Completed Drug Screen,Urine Stat Lab 05/26/25 17:25 Received Ethyl Alcohol Stat Lab 05/26/25 17:25 Completed Lipid Panel Stat Lab 05/26/25 17:25 Completed Prothrombin Time INR Stat Lab 05/26/25 17:25 Completed Troponin I Q3H Lab 05/26/25 20:30 Ordered Troponin I Q3H Lab 05/26/25 23:30 Ordered Troponin I Stat Lab 05/26/25 17:25 Completed Urinalysis and Microscopic Stat Lab 05/26/25 17:25 Received ECG Request Stat Y 05/26/25 17:30 Ordered Medical Decision Narrative: 85-year-old who presents today with sudden lightheadedness stating he felt he was going to pass out but also states that he was profoundly having difficulty walking and is ataxic on my exam. The remainder of his posterior circulation exam is normal however he is far more ataxic than his normal with simple vertigo or just lightheadedness. We did do orthostatics which were unremarkable. 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 NIH is technically 0 but he is profoundly ataxic as stated above will share images with [facility] he likely will need an MRI to rule out any posterior fossa abnormalities. Other things on the differential include positional vertigo, etc. Broad workup is pending patient will likely need to be transferred to a stroke center. Reassessment 6:[address] scan of the patient's head and cervical spine CT angios of the head and neck were performed which I personally turbid shows no intracranial pathology specifically no LVO or obvious posterior circulation abnormality. However given his profound ataxia there are still concern for posterior fossa stroke. He is within the window for TNK I spoke with the stroke team at [facility] they reviewed images we offered TNK to the patient but he refused this. In fact he tried to refuse admission and wanted to go home. After extensive discussion with him he stated that he wanted to try to get up and walk again at which point he attempted again and was still profoundly ataxic nearly falling. He states he is unable to go home because of his inability to walk. He is a highly able 85-year-old male still who works outside regularly and when I asked him if this is disabling his answer to me it was no but clearly this is significantly off of his baseline. This does not seem to be consistent with vertigo as he is unable to stand up and keep his balance which is out of proportion to what I typically see with vertiginous symptoms. Patient has been given IV fluids. He is currently refusing TNK but ultimately excepted that we wanted to transfer him to a stroke center. I spoke with the stroke navigation team at [facility] who accepted this patient. Patient was ultimately accepted to [facility] on the floor at [facility]. Critical Care Critical Care Time Critical Care Time: Yes Attestation: On 05/26/25, the high probability of a clinically significant, sudden or life threatening deterioration of the following system(s) required my full and direct attention, intervention and personal management. The time I documented below is in addition to time spent performing reported procedures but includes the following listed in this critical care notation. Total Time Total Critical Care Time: 65
[2025-05-26 17:55] LABS: Alanine Aminotransferase 23 U/L (12-78); Albumin Level 4.6 g/dl (3.5-5.0); Albumin/Globulin Ratio 1.4 (1.1-1.8); Alkaline Phosphatase 82 U/L (38-126); Anion Gap 11.8 mEq/L (5-15); Aspartate Amino Transferase 31 U/L (17-59); Bilirubin,Total 0.9 mg/dl (0.2-1.3); Blood Urea Nitrogen 23 mg/dl (9-20); Calcium 9.4 mg/dl (8.4-10.2); Carbon Dioxide 29 mmol/L (22.0-30.0); Chloride 104 mmol/L (98-107); Cholesterol 131 mg/dl (140-200); Creatinine Clearance Estimated 64 mL/min (50-200); Creatinine,Serum 1.20 mg/dl (0.66-1.25); Estimated Glomerular Filt Rate 57 ml/min (>60); GFR (African American) 69 ML/MIN (>60); Globulin 3.4 g/dL (1.3-3.2); Glucose 113 mg/dl (74-100); HDL Cholesterol 37 mg/dl (40-60); Potassium 3.8 mmoL/L (3.5-5.1); Sodium 141 mmol/L (136-145); Total Protein,Serum 8.0 g/dl (6.3-8.2); Triglycerides 137 mg/dl (30-150)
[2025-05-26 18:04] LABS: Activated Partial Thrombo Time 25.4 seconds (22.8-30.6); INR 1.04 (0.9-1.1); Prothrombin Time 11.5 seconds (10.1-12.5); Total Cells Counted 100
[2025-05-26 18:05] LABS: RBC Morphology Normal
--- NOTE | 2025-05-26 18:05 | PC.NURSE ---
[facility] for [facility] CVA. Dr Argueta is currently on phone with stroke navigator.
[2025-05-26 18:22] LABS: Troponin I < 0.01 ng/ml (0.00-0.034)
[2025-05-26] MEDS: ASPIRIN 81MG CHEWABLE TABLET 324 MG PO (18:58)
--- NOTE | 2025-05-26 19:10 | PC.NURSE ---
[facility].
== END 2025-05-26 20:31 ==
PROVIDERS: Emergency Provider Student in an Organized Health Care Education/Training Program; PCP Family Medicine
DX: R55 Syncope and collapse (principal); R27.0 Ataxia, unspecified; F17.210 Nicotine dependence, cigarettes, uncomplicated
CPT/HCPCS: 70450; 70496; 70498; 80053; 80061; 80320; 84484; 85007; 85025; 85027; 85610; 85730; 93005; 96360; 99285; J7120; Q9967

== ENCOUNTER 2025-07-01 14:55 | Outpatient (CLI) | payer MEDICARE, SELFPAY ==
--- OUTSIDE RECORDS SUMMARY | 2025-05-26 21:51 | XMS_ITS | Encounter Summary ---
Author Organization [facility] Address [address] [place] [address] Care Team Providers Care Cloth Finisher Name Role Phone Ramos Dominguez MD Primary Care Provider [phone] Reason for Referral * Physical Therapy (Routine) - Pending Review Specialty Diagnoses / Procedures Referred By Contac t Referred To Contact Physical Therapy Diagnoses Benign paroxysmal positional vertigo of left ear Procedures PA OFFICE/OUTPATIENT NEW MODERATE MDM 45 MINUTES Hawk Crowder PA-C [address] [place] [address] Phone: tel: fax: [facility] [address] [place] [phone] Phone: tel: fax: Referral ID Status Reason Start Date Expiration Date Visits Requested Visits Authorized [id number] Pending Review Specialty Services Required 05/28/2025 08/27/2026 2 2 Scheduling Instructions First available please * Consultation (Routine) - Authorized Specialty Diagnoses / Procedures Referred By Contac t Referred To Contact Neurology Diagnoses Transient ischemic attack (TIA) Procedures PA OFFICE/OUTPATIENT NEW MODERATE MDM 45 MINUTES Hawk Crowder PA-C [address] [place] [address] Phone: tel: fax: Elicia Balderrama APRN [address] [facility] [address] [place] [address] Phone: tel: fax: Referral ID Status Reason Start Date Expiration Date Visits Requested Visits Authorized Authorized Specialty Services Required 05/28/2025 08/27/2026 1 1 Scheduling Instructions 6 week stroke clinic follow up * MRI/CAT/PET Scan (Routine) - Pending Review Specialty Diagnoses / Procedures Referred By Contac t Referred To Contact Procedures CT Outside Head Films, Radiant Outside Referral ID Status Reason Start Date Expiration Date V isits Requested Visits Authorized Pending Review 05/27/2025 08/26/2026 1 1 * MRI/CAT/PET Scan (Routine) - Pending Review Specialty Diagnoses / Procedures Referred By Contac t Referred To Contact Procedures CT Outside Head Films, Radiant Outside Referral ID Status Reason Start Date Expiration Date V isits Requested Visits Authorized Pending Review 05/27/2025 08/26/2026 1 1 * MRI/CAT/PET Scan (Routine) - Pending Review Specialty Diagnoses / Procedures Referred By Contac t Referred To Contact Procedures CT Outside Neck Films, Radiant Outside Referral ID Status Reason Start Date Expiration Date V isits Requested Visits Authorized Pending Review 05/27/2025 08/26/2026 1 1 Reason for Visit * Auth/Cert Specialty Diagnoses / Procedures Referred By Contac t Referred To Contact Diagnoses Cerebrovascular Accident (CVA) Referral ID Status Reason Start Date Expiration Date Visits Re quested Visits Authorized 1 1 Encounter Details Date Type Department Care Team (Late st Contact Info) Description 05/26/2025 9:51 PM EDT - 05/28/2025 3:41 PM EDT Hospital Encounter [address] [id number] Estefanía Morales MD [address] [facility] [address] [place] [id number] Chris Gan III, DO [address] [facility] [address] [place] [address] Elvi Sandoval MD [address] [facility] [address] [place] [address] Rose Marie Melara, DO [address] [place] [address] Cerebrovascular accident (CVA), unspecified mechanism (Primary Dx); Transient ischemic attack (TIA); Benign paroxysmal positional vertigo of left ear Discharge Disposition: Home or Self Care Social History Tobacco Use Types Packs/Day Years Used Date Smoking Tobacco: Every Day Cigarettes 1 65.7 Started: 1960 Passive Smoke Exposure: Current Smokeless Tobacco: Never Tobacco Cessation:Ready to Q uit: No; Counseling Given: Yes Alcohol Use Standard Drinks/Week Comments Never 0 (1 standard drink = 0.6 oz pur e alcohol) [facility] Utilities Answer Date Recorded In the past 12 months has e Spotted, gas, oil, or water [employer] threatened to shut off services in your home? Patient unable to answer 05/27/2025 AUDIT-C Answer Date Recorded Q1: How often do you have a drink containing alcohol? Never 05/27/2025 Q2: How many drinks containi ng alcohol do you have on a typical day when you are drinking? Patient does not drink Q3: How often do you have si x or more drinks on one occasion? Never 05/27/2025 Hunger Vital Sign Answer Date Recorded Within the past 12 months, y ou worried that your food would run out before you got the money to buy more. Patient unable to answer 05/27/2025 Within the past 12 months, t he food you bought just didn't last and you didn't have money to get more. Patient unable to answer 05/27/2025 PRAPARE - Transportation Answer Date Re corded In the past 12 months, has l ack of transportation kept you from medical appointments or from getting medications? No 05/04 In the past 12 months, has l ack of transportation kept you from meetings, work, or from getting things needed for daily living? No 05/27/2025 Abuse Screen Answer Date Recorded Feels Unsafe at Home or Work/School no 05/27/2025 Feels Threatened by Someone no 05/04 Does Anyone Try to Keep You From Having Contact with Others or Doing Things Outside Your Home? no 05/27/2025 Physical Signs of Abuse Present no 05/27/2025 Housing Stability Answer Date Recorded Current Living Arrangements home 05/04 Potentially Unsafe Housing Conditions noemí brunson unable to answer;other (see comments) 05/27/2025 Employment Answer Date Recorded Do you want help finding or keeping work or a job? Patient unable to answer 05/27/2025 Disabilities Answer Date Recorded Difficulty Concentrating, Remembering or Making Decisions no 05/27/2025 Difficulty Managing Errands Independently no 05/27/2025 Education Answer Date Recorded Do you want help with school or training? For example, starting or completing job training or getting a high school diploma, GED or equivalent Patient unable to answer 05/27/2025 Preferred Language Libyan 05/27/2025 Sex and Gender Information Value Date Recorded Sex Assigned at Not on file Legal Sex Male 6:42 PM EDT Gender Identity Not on file Sexual Orientation Not on file documented as of this encounter Last Filed Vital Signs Vital Sign Reading Time Taken Comments Blood Pressure 122/71 05/28/2025 11:23 AM EDT Pulse 66 05/28/2025 1:00 PM EDT Temperature 36.7 C (98.1 F) 05/28/2025 11:23 AM EDT Respiratory Rate 16 05/28/2025 11:23 AM EDT Oxygen Saturation 93% 05/28/2025 1:00 PM EDT Inhaled Oxygen Concentration - - Weight 102 kg (225 lb) 05/27/2025 10:15 AM EDT Height 182.9 cm (6') 05/27/2025 10:15 AM EDT Body Mass Index 30.52 05/27/2025 10:15 AM EDT documented in this encounter Functional Status * Question Answer Date of Assessment Author 1. Wish to be (Past 1 Month) No 025 2:42 AM EDT Nino Ordonez RN 2. Non-Specific Active Suici fadumo Thoughts (Past 1 Month) No 05/27/2025 2:42 AM EDT Nino Ordonez RN * Calculated C-SSRS Risk Score (Lifetime/Recent) Answer Date of Assessment Author No Risk Indicated 05/27/2025 2:42 AM EDT Nino Ordonez RN * [place] Suicide Severity Rating Scale (Screener/Recent Self-Report) Question Answer Date of Assessment Author 6. Suicidal Behavior (Lifetime) No 2:42 AM EDT Nino Ordonez RN documented as of this encounter Discharge Summaries * Pau Humphrey PA-C - 05/28/2025 12:38 PM EDT Images from the original note were not included. [facility] Medicine Services DISCHARGE SUMMARY Patient Name: Yung Mendez : 1940 Date of Admission: 05/26/2025 9:51 PM Date of Discharge: 05/28/2025 Primary Care Physician: Ramos Dominguez MD Consults Date and Time Order Name Status Description 05/26/2025 10:28 PM Inpatient Neurology Consult Stroke Hospital Course Presenting Problem: Dizziness Active Hospital Problems Diagnosis POA Stroke [I63.9] Yes COPD (chronic obstructive pulmonary disease) [J44.9] Yes Tobacco abuse [Z72.0] Yes Paroxysmal atrial fibrillation [I48.0] No ALIDA (acute kidney injury) [N17.9] Yes Leukocytosis [D72.829] Yes Resolved Hospital Problems Diagnosis Date Resolved POA Chronic respiratory failure [J96.10] 05/26/2025 Yes Chronic atrial fibrillation [I48.20] 05/26/2025 No Hospital Course: Yung Mendez is a 85 y.o. male with a past medical history of hypertension, active smoking, COPD noncompliant with inhaler therapy, A-fib (on aspirin only), hyperlipidemia, and possible leukemia who presented with complaints of dizziness. TIA versus BPPV - Patient reports episodes of transient vision loss ( it got dark ) and dizziness. Patient declinedTNK. CT head and CTA head and neck scans at OSH demonstrated no acute intracranial process, no acute stenosis or occlusion - MRI brain with mild chronic microvascular ischemic changes - Echo 05/27 showed LVEF 51-55%, no atrial dilation - Continue DAPT x 21 days (started 05/27/25), then ASA monotherapy thereafter - Continue home Lipitor - BP has normalized, no home BP meds - OPPT with vestibular therapy per Neuro Stroke team - Follow up with Stroke clinic in 6 weeks - Follow up with PCP in 1 week COPD Ongoing tobacco abuse - Smoking cessation advised, patient is NOT agreeable to NRT - Patient agreeable to outpatient PFTs though will discuss with PCP prior - Albuterol inhaler prn Leukocytosis ? Hx leukemia, CML - Infectious work-up negative History of paroxysmal Afib HLD - Continue ASA - Neuro Stroke recommended event monitor at DC, patient declined. Patient reported he would declineOAC if Afib was found. Stroke to follow up at outpatient visit Abnormal CXR - CXR with 14 mm nodular density overlying right upper lung. CT chest without nodule, showed degenerative spurring of thoracic spine. Recommend low dose CT screening given smoking hx. Patient reports he will discuss with PCP Discharge Follow Up Recommendations for outpatient labs/diagnostics: - DAPT x 21 days (started 05/27/25), then ASA monotherapy thereafter - BP has normalized, no home BP meds - OPPT with vestibular therapy per Neuro Stroke team - Follow up with Stroke clinic in 6 weeks - Follow up with PCP in 1 week to discuss needs for PFTs, repeat CT screening for lung cancer Day of Discharge HPI: Patient seen and examined this morning. Son and sister at bedside. Patient is eager to discharge today. He states his dizziness only occurs if he turns his head too quickly, resolves spontaneously. Discussed smoking cessation, patient states he is going to quit and declines NRT. Reviewed chest CT with recommendation for low dose CT screening. Patient will discuss getting PFTs with his PCP. Reviewed medications, follow up, return precautions. Patient expressed understanding. Review of Systems Constitutional: Negative for chills and fever. Respiratory: Negative for shortness of breath. Cardiovascular: Negative for chest pain. Gastrointestinal: Negative for abdominal pain, nausea and vomiting. Vital Signs: Temp: [97.4 ??F (36.3 ??C)-98.1 ??F (36.7 ??C)] 98.1 ??F (36.7 ??C) Heart Rate: [51-71] 59 Resp: [14-16] 16 BP: (95-122)/(45-72) 122/71 Physical Exam: Constitutional: Elderly appearing male lying in bed in NAD Respiratory: Diminished BS bilaterally, nonlabored respirations on room air Cardiovascular: RRR, no murmurs Gastrointestinal: Positive bowel sounds, soft, nontender, nondistended Musculoskeletal: Muscle tone consistent throughout Psychiatric: Appropriate affect, cooperative Neurologic: Alert, oriented, NICOLE spontaneously, speech clear Skin: No rashes on exposed skin Pertinent and/or Most Recent Results LAB RESULTS: Lab 05/27/25 1106 05/27/25 0020 WBC 17.91* 19.36* HEMOGLOBIN 14.3 14.3 HEMATOCRIT 43.9 44.2 PLATELETS 235 239 NEUTROS ABS 7.16* -- EOS ABS 0.00 -- MCV 88.3 89.8 CRP -- <0.30 PROCALCITONIN -- 0.03 LACTATE -- 1.0 PROTIME 14.4 -- Lab 05/27/25 1106 05/27/25 0020 SODIUM 136 141 POTASSIUM 3.9 4.3 CHLORIDE 105 106 CO2 22.2 26.0 ANION GAP 8.8 9.0 BUN 17.4 19.8 CREATININE 0.88 0.96 EGFR 83.7 77.0 GLUCOSE 109* 112* CALCIUM 9.0 9.0 MAGNESIUM 2.0 2.0 PHOSPHORUS 2.5 2.9 HEMOGLOBIN A1C 6.00* -- Lab 05/27/25 1106 TOTAL PROTEIN 6.3 ALBUMIN 3.8 GLOBULIN 2.5 ALT (SGPT) 12 AST (SGOT) 17 BILIRUBIN 0.8 ALK PHOS 78 Lab 05/27/25 1106 PROTIME 14.4 INR 1.06 Lab 05/27/25 1106 CHOLESTEROL 106 LDL CHOL 58 HDL CHOL 32* TRIGLYCERIDES 81 Brief Urine Lab Results (Last result in the past 365 days) Color Clarity Blood Leuk Est Nitrite Protein CREAT Urine HCG 05/27/25 0418 Yellow Clear Negative Negative Negative Negative Microbiology Results (last 10 days) Procedure Component Value - Date/Time Respiratory Panel PCR w/COVID-19(SARS-CoV-2) NEFTALY/ABELARDO/TOR/PAD/COR/QUIN In-House, [employer] Swab in [facility]/AKM, 2 HR TAT - Swab, Nasopharynx [[id number]] (Normal) Collected: 05/27/25 0002 Lab Status: Final result Specimen: Swab from Nasopharynx Updated: 05/27/25 0102 ADENOVIRUS, PCR Not Detected Coronavirus 229E Not Detected Coronavirus HKU1 Not Detected Coronavirus NL63 Not Detected Coronavirus OC43 Not Detected COVID19 Not Detected Human Metapneumovirus Not Detected Human Rhinovirus/Enterovirus Not Detected Influenza A PCR Not Detected Influenza B PCR Not Detected Parainfluenza Virus 1 Not Detected Parainfluenza Virus 2 Not Detected Parainfluenza Virus 3 Not Detected Parainfluenza Virus 4 Not Detected RSV, PCR Not Detected Bordetella pertussis pcr Not Detected Bordetella parapertussis PCR Not Detected Chlamydophila pneumoniae PCR Not Detected Mycoplasma pneumo by PCR Not Detected Narrative: In the setting of a positive respiratory panel with a viral infection PLUS a negative procalcitoninwithout other underlying concern for bacterial infection, consider observing off antibiotics or discontinuation of antibiotics and continue supportive care. If the respiratory panel is positive for atypical bacterial infection (Bordetella pertussis, Chlamydophila pneumoniae, or Mycoplasma pneumoniae), consider antibiotic de-escalation to target atypical bacterial infection. CT Chest Without Contrast Diagnostic Result Date: 05/27/2025 CT CHEST WO CONTRAST DIAGNOSTIC Date of Exam: 05/27/2025 4:46 PM EDT Indication: smoker, abnormal CXR, rule out nodule or malignancy. Comparison: CXR 05/27/2025 Technique: Axial CT images were obtainedof the chest without contrast administration. Reconstructed coronal and sagittal images were also obtained. Automated exposure control and iterative construction methods were used. Findings: Lung window images reveal mild emphysema. Mild, symmetrical nodular apical pleural thickening is evident. Subsegmental atelectasis and/are linear fibrosis is seen at the lung bases. No abnormality is seen at the thoracic inlet. Moderate coronary artery calcifications are evident. Upper abdominal structures have an unremarkable appearance. Degenerative spurring is seen in the thoracic spine. Impression: CT scan of the chest without IV contrast demonstrating mild emphysema. No active disease is seen. Consider low-dose screening CT scan of the chest if the patient meets criteria. Electronically Signed: Malick Lake MD 05/27/2025 5:01 PM EDT Workstation ID: [id number] MRI Brain Without Contrast Result Date: 05/27/2025 MRI BRAIN WO CONTRAST Date of Exam: 05/27/2025 12:39 PM EDT Indication: Stroke, follow up inability to walk, balance difficulty, trunca ataxia. Comparison: CT head without contrast 05/26/2025 Technique: Routine multiplanar/multisequence sequence images of the brain were obtained without contrast administration. Findings: There is no diffusion restriction to suggest acute infarct. There is no evidence of acute or chronic intracranial hemorrhage. No mass effect or midline shift. No abnormal extra-axial collections. The basal ganglia, brainstem and cerebellum appear within normal limits. Midline structures are intact. Mild scattered subcortical/periventricular white matter hyperintensities are noted. Calvarial and superficial soft tissue signal is within normal limits. Orbits appear unremarkable. There is mild mucosal thickening of the paranasal sinuses. The mastoid air cells are clear. Impression: 1.No acute intracranial abnormality. 2.Mild chronic microvascular ischemic changes. Electronically Signed: Flavia Doherty MD 05/27/2025 1:13 PM EDT Workstation ID: [id number] XR Chest 1 View Result Date: 05/27/2025 XR CHEST 1 VW Date of Exam: 05/27/2025 2:44 AM EDT Indication: copd, wheezing on exam. Comparison: None available. Findings: The cardiomediastinal silhouette is within normal limits. Lungs are clear. No focal consolidation, pneumothorax, or significant pleural effusion. Osseous structures grossly intact. Asymmetric nodular density overlying the right upper lung which may relate to osteophyte formation associated with the anterior right first rib versus pulmonary nodule. Impression: 1. No acute cardiopulmonary process. 2. Asymmetric 14 mm nodular density overlying right upper lung. This may relate to osseous spurring associated with the first rib, given history of COPD, chest CT may be helpful to exclude any underlying pulmonary nodule. Electronically Signed: Zen Redman MD 05/27/2025 7:24 AM EDT Workstation ID: [id number] CT Outside Head Result Date: 05/27/2025 This procedure was auto-finalized with no dictation required. CT Outside Head Result Date: 05/27/2025 This procedure was auto-finalized with no dictation required. CT Outside Neck Result Date: 05/27/2025 This procedure was auto-finalized with no dictation required. Results for orders placed during the hospital encounter of 05/26/25 Adult Transthoracic Echo Complete W/ Cont if Necessary Per Protocol (With Agitated Saline) 05/27/2025 11:43 AM Interpretation Summary Technically difficult study. Left ventricular systolic function is normal. Left ventricular ejection fraction appears to be 51 -55%. Left ventricular wall thickness is consistent with mild concentric hypertrophy Normal left atrial size and volume noted. Trace mitral valve regurgitation is present. Plan for Follow-up of Pending Labs/Results: Discharge Details Discharge Medications New Medications Instructions Start Date albuterol sulfate HFA 108 (90 Base) MCG/ACT inhaler Commonly known as: PROVENTIL HFA;VENTOLIN HFA;PROAIR HFA 2 puffs, Inhalation, Every 4 Hours PRN clopidogrel 75 MG tablet Commonly known as: PLAVIX 75 mg, Oral, Daily Start Date: May 29, 2025 Continue These Medications Instructions Start Date aspirin 81 MG chewable tablet 81 mg, Daily atorvastatin 40 MG tablet Commonly known as: LIPITOR 40 mg, Oral, Daily No Known Allergies Discharge Disposition: Home or Self Care Diet: Hospital: Diet Order Procedures Diet: Regular/House; Fluid Consistency: Thin (IDDSI 0) Standing Status: Standing Number of Occurrences: 1 Diets:: Regular/House Fluid Consistency:: Thin (IDDSI 0) Activity: Restrictions or Other Recommendations: CODE STATUS: Code Status and Medical Interventions: CPR (Attempt to Resuscitate); Full Support Ordered at: 05/26/252227 Code Status (Patient has no pulse and is not breathing): CPR (Attempt to Resuscitate) Medical Interventions (Patient has pulse or is breathing): Full Support Level Of Support Discussed With: Patient No future appointments. Additional Instructions for the Follow-ups that You Need to Schedule Ambulatory Referral to Neurology As directed 6 week stroke clinic follow up Ambulatory Referral to Physical Therapy for Evaluation & Treatment As directed Patient needs evaluation for vestibular therapy and David maneuver for suspected positional vertigo First available please Order Comments: Patient needs evaluation for vestibular therapy and David maneuver for suspected positional vertigo Specialty needed: Vestibular Evaluate and treat Weight Bearing Status: Full weight bearing Follow-up needed: Yes Discharge Follow-up with PCP As directed Currently Documented PCP: Ramos Dominguez MD PCP Follow Up Details: Follow up in 1 week Pau Humphrey PA-C 08/26/25 Time Spent on Discharge: I spent 33 minutes on this discharge activity which included: [id number] with the patient, reviewing the data in the system, coordination of the care with the nursing staff as well as consultants, documentation, and entering orders. Cosigned by Rose Marie Melara DO at 05/28/2025 2:43 PM EDT Associated attestation - Rose Marie Melara DO - 05/28/2025 2:43 PM EDT I have reviewed this documentation and agree. * Sana Greco, MS [facility]-CH[facility]ER - 05/27/2025 10:35 AM EDT Acute Care - Speech Language Pathology Initial Evaluation/Discharge [facility] Cognitive-Communication Evaluation Patient Name: Yung Mendez : 1940 Today's Date: 05/27/2025 Admit Date: 05/26/2025 Visit Dx: ICD-10-CM ICD-9-CM 1. Cerebrovascular accident (CVA), unspecified mechanism I63.9 434.91 Patient Active Problem List Diagnosis Stroke COPD (chronic obstructive pulmonary disease) Tobacco abuse Paroxysmal atrial fibrillation ALIDA (acute kidney injury) Leukocytosis Past Medical History: Diagnosis Date Cancer COPD (chronic obstructive pulmonary disease) Hyperlipidemia Past Surgical History: Procedure Laterality Date EYE SURGERY [employer]ER Recommendation and Plan Recommended discharge disposition is based on the functional assessment performed by PT/OT/Speech therapy (as applicable) and may not reflect the medical necessity determined by your provider or services covered by an individual patient's insurance plan or patient resource. [employer] Diagnosis: functional speech/language skills, functional cognitive- linguistic skills (05/27/25 1000) [facility] Criteria for Skilled Therapy Interventions Met: no problems identified which require skilled intervention (05/27/25 1000) Anticipated Discharge Disposition (CHICKEN BUYER): No further CHICKEN BUYER services warranted (05/27/25 1000) CHICKEN BUYER EVALUATION (Last 72 Hours) [facility] BU[employer]ER [facility] Evaluation Row Name 05/27/25 1000 Communication Assessment/Intervention Document Type discharge evaluation/summary -AC Subjective Information no complaints -AC Patient Observations alert;cooperative -AC Patient/Family/Caregiver Comments/Observations Son present. -AC Patient Effort good -AC General Information Patient Profile Reviewed yes -AC Pertinent History Of Current Problem Adm w/ concern for stroke. OSH head CT negative for stroke. -AC Precautions/Limitations, Vision WFL;for purposes of eval -AC Precautions/Limitations, Hearing WFL;for purposes of eval -AC Patient Level of Education High school education -AC Prior Level of Function-Communication WFL -AC Plans/Goals Discussed with patient and family;agreed upon -AC Barriers to Rehab none identified -AC Patient's Goals for Discharge patient did not state -AC Family Goals for Discharge family did not state -AC Pain Pretreatment Pain Rating 0/10 - no pain -AC Posttreatment Pain Rating 0/10 - no pain -AC Comprehension Assessment/Intervention Comprehension Assessment/Intervention Auditory Comprehension;Reading Comprehension -AC Auditory Comprehension Assessment/Intervention Auditory Comprehension (Communication) WFL -AC Answers Questions (Communication) WFL;complex;yes/no -AC Able to Follow Commands (Communication) WFL;2-step -AC Narrative Discourse WFL;conversational level -AC Reading Comprehension Assessment/Intervention Reading Comprehension (Communication) WFL -AC Paragraph Level WFL -AC Expression Assessment/Intervention Expression Assessment/Intervention verbal expression;graphic expression -AC Verbal Expression Assessment/Intervention Verbal Expression WFL -AC Responsive Naming WFL;simple -AC Confrontational Naming WFL;high frequency -AC Conversational Discourse/Fluency WFL -AC Graphic Expression Assessment/Intervention Graphic Expression WFL -AC Sentence Formulation WFL;complex -AC Oral Musculature and Cranial Nerve Assessment Oral Motor General Assessment -- -AC Motor Speech Assessment/Intervention Motor Speech Function WFL -AC Conversational Speech (Communication) WFL;simple -AC Speech intelligibility 100%;in quiet environment;in connected speech;with unfamiliar listener -AC Cursory Voice Assessment/Intervention Quality and Resonance (Voice) WFL -AC Cognitive Assessment Intervention- [employer]ER Cognitive Function (Cognition) WFL -AC Orientation Status (Cognition) WFL;person;place;time;situation -AC Memory (Cognitive) WFL;short-term;immediate;delayed;unrelated immediate recall: 5/5 words; 5-min delayed recall: 4/5 words (5/5 w/ min cue) -AC Attention (Cognitive) WFL;sustained -AC Thought Organization (Cognitive) WFL;abstract convergent;verbal sequencing -AC Reasoning (Cognitive) WFL;analogies;mental flexibility -AC Problem Solving (Cognitive) WFL;temporal -AC Functional Math (Cognitive) WFL;word problems;money calculation -AC Executive Function (Cognition) WFL -AC Pragmatics (Communication) WFL -AC CHICKEN BUYER Evaluation Clinical Impressions CHICKEN BUYER Diagnosis functional speech/language skills;functional cognitive-linguistic skills -AC [facility] Criteria for Skilled Therapy Interventions Met no problems identified which require skilled intervention - Recommendations Anticipated Discharge Disposition (CHICKEN BUYER) No further CHICKEN BUYER services warranted - User Spicer (r) = Recorded By, (t) = Taken By, (c) = Cosigned By Initials Name Effective Dates AC Sana Greco MS CCC-CHICKEN BUYER 11/05/22 - EDUCATION The patient has been educated in the following areas: Cognitive Impairment Communication Impairment. Time Calculation: Time Calculation- CHICKEN BUYER Row Name 05/27/25 1035 Time Calculation- CHICKEN BUYER CHICKEN BUYER Start Time 1000 -AC CHICKEN BUYER Received On 05/27/25 - Untimed Charges [id number] Eval Speech and Production w/ Language Minutes 40 -AC Total Minutes Untimed Charges Total Minutes 40 -AC Total Minutes 40 -AC User Spicer (r) = Recorded By, (t) = Taken By, (c) = Cosigned By Initials Name Provider Type AC Sana Greco MS CCC-CHICKEN BUYER Speech and Language Pathologist Therapy Charges for Today Code Description Service Date Service Provider Modifiers Qty [id number] HC ST EVAL SPEECH AND PROD W LANG 3 05/27/2025 Sana Greco MS CCC-CHICKEN BUYER GN 1 CHICKEN BUYER Discharge Summary Anticipated Discharge Disposition (CHICKEN BUYER): No further CHICKEN BUYER services warranted Sana Greco MS CCC-CHICKEN BUYER 05/27/2025 * Melinda Hunt, PT - 05/27/2025 10:30 AM EDT Images from the original note were not included. Patient Name: Yung Mendez : 1940 Today's Date: 05/27/2025 Admit Date: 05/26/2025 Visit Dx: ICD-10-CM ICD-9-CM 1. Cerebrovascular accident (CVA), unspecified mechanism I63.9 434.91 Patient Active Problem List Diagnosis Stroke COPD (chronic obstructive pulmonary disease) Tobacco abuse Paroxysmal atrial fibrillation ALIDA (acute kidney injury) Leukocytosis Past Medical History: Diagnosis Date Cancer COPD (chronic obstructive pulmonary disease) Hyperlipidemia Past Surgical History: Procedure Laterality Date EYE SURGERY General Information Row Name 05/27/25 1139 Physical Therapy Time and Intention Document Type discharge evaluation/summary -KR Mode of Treatment physical therapy;co-treatment -KR Row Name 05/27/25 1139 General Information Patient Profile Reviewed yes -KR Prior Level of Function independent:;all household mobility;community mobility;ADL's;driving DeniesDME use, x1 fall ~6 months ago, ind with ADLs. -KR Existing Precautions/Restrictions no known precautions/restrictions -KR Barriers to Rehab none identified -KR Row Name 05/27/25 1139 Living Environment Current Living Arrangements home -KR People in Home alone -KR Row Name 05/27/25 1139 Home Main Entrance Number of Stairs, Main Entrance none -KR Row Name 05/27/25 1139 Stairs Within Home, Primary Stairs, Within Home, Primary into basement -KR Number of Stairs, Within Home, Primary twelve -KR Stair Railings, Within Home, Primary railing on left side (ascending) -KR Row Name 05/27/25 1139 Cognition Orientation Status (Cognition) oriented x 4 -KR User Spicer (r) = Recorded By, (t) = Taken By, (c) = Cosigned By Initials Name Provider Type KR Melinda Hunt PT Physical Therapist Mobility Row Name 05/27/25 1140 Bed Mobility Bed Mobility supine-sit;sit-supine -KR Sit-Supine [place] (Bed Mobility) modified independence -KR Assistive Device (Bed Mobility) head of bed elevated -KR Row Name 05/27/25 1140 Sit-Stand Transfer Sit-Stand [place] (Transfers) standby assist -KR Row Name 05/27/25 1140 Gait/Stairs (Locomotion) [place] Level (Gait) contact guard -KR Distance in Feet (Gait) 120 -KR Deviations/Abnormal Patterns (Gait) gait speed decreased -KR [place] Level (Stairs) contact guard -KR Handrail Location (Stairs) left side (ascending);right side (descending) -KR Number of Steps (Stairs) 10 -KR Comment, (Gait/Stairs) pt with mild gait deviations with vertical and horizontal head turns, however able to recover independently. CGA progressing to SBA for ambulation and stair navigation. -KR User Spicer (r) = Recorded By, (t) = Taken By, (c) = Cosigned By Initials Name Provider Type Melinda Pugh PT Physical Therapist Obj/Interventions Row Name 05/27/25 1140 Range of Motion Comprehensive General Range of Motion no range of motion deficits identified -KR Row Name 05/27/25 1140 Strength Comprehensive (MMT) General Manual Muscle Testing (MMT) Assessment no strength deficits identified -KR Row Name 05/27/25 1140 Balance Balance Assessment sitting static balance;sitting dynamic balance;standing static balance;standing dynamic balance -KR Static Sitting Balance independent -KR Dynamic Sitting Balance independent -KR Position, Sitting Balance unsupported;sitting edge of bed -KR Static Standing Balance standby assist -KR Dynamic Standing Balance contact guard -KR Position/Device Used, Standing Balance unsupported -KR Balance Interventions sitting;standing;sit to stand;static;dynamic -KR Row Name 05/27/25 1140 Sensory Assessment (Somatosensory) Sensory Assessment (Somatosensory) left LE;right LE -KR Left LE Sensory Assessment general sensation;light touch awareness;light touch localization;proprioception;intact -KR Right LE Sensory Assessment general sensation;impaired;light touch awareness;light touch localization;proprioception;intact -KR Sensory Subjective Reports numbness -KR Sensory Assessment numbness R heel -KR User Spicer (r) = Recorded By, (t) = Taken By, (c) = Cosigned By Initials Name Provider Type Melinda Pugh PT Physical Therapist Goals/Plan No documentation. Clinical Impression Row Name 05/27/25 1141 Pain Pretreatment Pain Rating 0/10 - no pain -KR Posttreatment Pain Rating 0/10 - no pain -KR Row Name 05/27/25 1141 Plan of Care Review Plan of Care Reviewed With patient;family -KR Outcome Evaluation Pt presents at baseline for functional mobility tasks. No deficits identified requiring PT services. Rec home upon dc. -KR Row Name 05/27/25 1141 Therapy Assessment/Plan (PT) Patient/Family Therapy Goals Statement (PT) to go home -KR Criteria for Skilled Interventions Met (PT) no;no problems identified which require skilled intervention -KR Row Name 05/27/25 1141 Vital Signs Pre Systolic BP Rehab 106 -KR Pre Treatment Diastolic BP 66 -KR Post Systolic BP Rehab 107 -KR Post Treatment Diastolic BP 74 -KR Pretreatment Heart Rate (beats/min) 67 -KR Posttreatment Heart Rate (beats/min) 62 -KR Post SpO2 (%) 95 -KR O2 Delivery Post Treatment room air -KR Pre Patient Position Sitting -KR Intra Patient Position Standing -KR Post Patient Position Sitting -KR Row Name 05/27/25 1141 Positioning and Restraints Pre-Treatment Position in bed -KR Post Treatment Position bed -KR In Bed notified nsg;sitting EOB;with family/caregiver;encouraged to call for assist;call light within reach alarm status unchanged -KR User Spicer (r) = Recorded By, (t) = Taken By, (c) = Cosigned By Initials Name Provider Type Melinda Pugh, PT Physical Therapist Outcome Measures Row Name 05/27/25 1142 05/27/25 0022 How much help from another person do you currently need... Turning from your back to your side while in flat bed without using bedrails? 4 -KR 4 -AM Moving from lying on back to sitting on the side of a flat bed without bedrails? 4 -KR 4 -AM Moving to and from a bed to a chair (including a wheelchair)? 4 -KR 3 -AM Standing up from a chair using your arms (e.g., wheelchair, bedside chair)? 4 - KR 3 -AM Climbing 3-5 steps with a railing? 3 -KR 3 -AM To walk in hospital room? 4 -KR 3 -AM AM-PAC 6 Clicks Score (PT) 23 -KR 20 -AM Highest Level of Mobility Goal Walk 25 Feet or More-7 -KR Walk 10 Steps or More- 6 -AM Row Name 05/27/25 1142 05/27/25 1114 Modified Delilah Scale Pre-Stroke Modified Delilah Scale 6 - Unable to determine (UTD) from the medical record documentation -KR 6 - Unable to determine (UTD) from the medical record documentation -AJ Modified Forest Scale 0 - No Symptoms at all. -KR 0 - No Symptoms at all. -AJ Row Name 05/27/25 1142 05/27/25 1114 Functional Assessment Outcome Measure Options AM-PAC 6 Clicks Basic Mobility (PT);Modified Forest -CINDI AM-PAC 6 Clicks Daily Activity (OT);Modified Forest -AJ User Spicer (r) = Recorded By, (t) = Taken By, (c) = Cosigned By Initials Name Provider Type Melinda Pugh, CÉSAR Physical Therapist Kala Woodall, OT Occupational Therapist Nino Vargas, RN Registered Nurse Physical Therapy Education Title: PT OT CHICKEN BUYER Therapies (In Progress) Topic: Physical Therapy (In Progress) Point: Mobility training (Done) Learning Progress Summary Patient Acceptance, E, VU by KR at 05/27/2025 1142 Family Acceptance, E, VU by KR at 05/27/2025 1142 Point: Home exercise program (Not Started) Learner Progress: Not documented in this visit. Point: Body mechanics (Done) Learning Progress Summary Patient Acceptance, E, VU by KR at 05/27/2025 1142 Family Acceptance, E, VU by KR at 05/27/2025 1142 Point: Precautions (Done) Learning Progress Summary Patient Acceptance, E, VU by KR at 05/27/2025 1142 Family Acceptance, E, VU by KR at 05/27/2025 1142 User Spicer Initials Effective Dates Name Provider Type Discipline 10/01/22 - Melinda Hunt PT Physical Therapist PT PT Recommendation and Plan Recommended discharge disposition is based on the functional assessment performed by PT/OT/Speech therapy (as applicable) and may not reflect the medical necessity determined by your provider or services covered by an individual patient's insurance plan or patient resource. Outcome Evaluation: Pt presents at baseline for functional mobility tasks. No deficits identified requiring PT services. Rec home upon dc. Time Calculation: PT Evaluation Complexity History, PT Evaluation Complexity: 3 or more personal factors and/or comorbidities Examination of Body Systems (PT Eval Complexity): total of 4 or more elements Clinical Presentation (PT Evaluation Complexity): stable Clinical Decision Making (PT Evaluation Complexity): low complexity Overall Complexity (PT Evaluation Complexity): low complexity PT Charges Row Name 05/27/25 1143 Time Calculation Start Time 1030 -KR PT Received On 05/27/25 -KR Untimed Charges PT Eval/Re-eval Minutes 32 -KR Total Minutes Untimed Charges Total Minutes 32 -KR Total Minutes 32 -KR User Spicer (r) = Recorded By, (t) = Taken By, (c) = Cosigned By Initials Name Provider Type KR Melinda Hunt, PT Physical Therapist Therapy Charges for Today Code Description Service Date Service Provider Modifiers Qty [id number] HC PT EVAL LOW COMPLEXITY 3 05/27/2025 Melinda Hunt, PT GP 1 PT G-Codes Outcome Measure Options: AM-PAC 6 Clicks Basic Mobility (PT), Modified Delilah AM-PAC 6 Clicks Score (PT): 23 AM-PAC 6 Clicks Score (OT): 24 Modified Delilah Scale: 0 - No Symptoms at all. PT Discharge Summary Anticipated Discharge Disposition (PT): home Reason for Discharge: Independent, At baseline function Melinda Hunt PT 05/27/2025 * Kala Reddy, OT - 05/27/2025 10:25 AM EDT Images from the original note were not included. Acute Care - Occupational Therapy Discharge [facility] Patient Name: Yung Mendez : 1940 Today's Date: 05/27/2025 Admit Date: 05/26/2025 Visit Dx: ICD-10-CM ICD-9-CM 1. Cerebrovascular accident (CVA), unspecified mechanism I63.9 434.91 Patient Active Problem List Diagnosis Stroke COPD (chronic obstructive pulmonary disease) Tobacco abuse Paroxysmal atrial fibrillation ALIDA (acute kidney injury) Leukocytosis Past Medical History: Diagnosis Date Cancer COPD (chronic obstructive pulmonary disease) Hyperlipidemia Past Surgical History: Procedure Laterality Date EYE SURGERY General Information Row Name 05/27/25 1107 OT Time and Intention Document Type discharge evaluation/summary -AJ Mode of Treatment occupational therapy;co-treatment -AJ Row Name 05/27/25 110 General Information Patient Profile Reviewed yes -AJ Prior Level of Function independent:;all household mobility;community mobility;gait;bed mobility;ADL's;driving Denies DME use, x1 fall ~6 months ago, ind with ADLs. -AJ Existing Precautions/Restrictions fall -AJ Barriers to Rehab none identified -AJ Row Name 05/27/25 1108 Living Environment Current Living Arrangements home -AJ People in Home alone -AJ Row Name 05/27/25 1107 Home Main Entrance Number of Stairs, Main Entrance none - Row Name 05/27/25 1107 Stairs Within Home, Primary Number of Stairs, Within Home, Primary other (see comments) - Stair Railings, Within Home, Primary railing on left side (ascending) - Stairs Comment, Within Home, Primary Basement - Row Name 05/27/25 1107 Cognition Orientation Status (Cognition) oriented x 4 - User Spicer (r) = Recorded By, (t) = Taken By, (c) = Cosigned By Initials Name Provider Type Kala Woodall OT Occupational Therapist Mobility/ADL's Row Name 05/27/25 1109 Bed Mobility Bed Mobility supine-sit;sit-supine - Supine-Sit Hawthorne (Bed Mobility) modified independence - Sit-Supine [place] (Bed Mobility) modified independence - Assistive Device (Bed Mobility) head of bed elevated - Row Name 05/27/25 1109 Transfers Transfers sit-stand transfer - Comment, (Transfers) No DME use for mobility - Row Name 05/27/25 1109 Sit-Stand Transfer Sit-Stand [place] (Transfers) standby assist - Row Name 05/27/25 1109 Functional Mobility Functional Mobility- Ind. Level supervision required - Functional Mobility-Distance (Feet) -- HH distance - Row Name 05/27/25 1109 Activities of Daily Living BADL Assessment/Intervention lower body dressing Pt declined ADLs - Row Name 05/27/25 1109 Lower Body Dressing Assessment/Training Hawthorne Level (Lower Body Dressing) don;socks;set up - Position (Lower Body Dressing) edge of bed sitting - Comment, (Lower Body Dressing) Able to acheive figure four - User Spicer (r) = Recorded By, (t) = Taken By, (c) = Cosigned By Initials Name Provider Type Kala Woodall OT Occupational Therapist Obj/Interventions Row Name 05/27/25 1111 Sensory Assessment (Somatosensory) Sensory Assessment (Somatosensory) UE sensation intact - Row Name 05/27/25 1111 Vision Assessment/Intervention Visual Impairment/Limitations WFL - Row Name 05/27/25 1111 Range of Motion Comprehensive General Range of Motion no range of motion deficits identified - Row Name 05/27/25 1111 Strength Comprehensive (MMT) General Manual Muscle Testing (MMT) Assessment no strength deficits identified - Row Name 05/27/25 1111 Balance Balance Assessment sitting static balance;sit to stand dynamic balance;sitting dynamic balance;standing static balance;standing dynamic balance -AJ Static Sitting Balance independent -AJ Dynamic Sitting Balance independent -AJ Position, Sitting Balance unsupported;sitting edge of bed -AJ Static Standing Balance supervision -AJ Dynamic Standing Balance standby assist -AJ Position/Device Used, Standing Balance unsupported -AJ Balance Interventions sitting;standing;sit to stand;supported;static;dynamic;occupation based/functional task - User Spicer (r) = Recorded By, (t) = Taken By, (c) = Cosigned By Initials Name Provider Type Kala Woodall OT Occupational Therapist Goals/Plan No documentation. Clinical Impression Row Name 05/27/25 1112 Pain Assessment Pretreatment Pain Rating 0/10 - no pain - Posttreatment Pain Rating 0/10 - no pain - Row Name 05/27/25 1112 Plan of Care Review Plan of Care Reviewed With patient;son - Progress no change - Outcome Evaluation OT eval complete. Pt presents at or near fxl baseline, no further skilled OT services are warranted at this time. Rec d/c to home. - Row Name 05/27/25 1112 Therapy Assessment/Plan (OT) Criteria for Skilled Therapeutic Interventions Met (OT) no problems identified which require skilled intervention - Therapy Frequency (OT) evaluation only - Row Name 05/27/25 1112 Therapy Plan Review/Discharge Plan (OT) Anticipated Discharge Disposition (OT) home - Row Name 05/27/25 1112 Vital Signs Pre Systolic BP Rehab 106 -AJ Pre Treatment Diastolic BP 66 -AJ Post Systolic BP Rehab 107 -AJ Post Treatment Diastolic BP 74 -AJ Pretreatment Heart Rate (beats/min) 67 -AJ Posttreatment Heart Rate (beats/min) 62 -AJ O2 Delivery Pre Treatment room air -AJ Post SpO2 (%) 95 -AJ O2 Delivery Post Treatment room air -AJ Pre Patient Position Sitting -AJ Intra Patient Position Standing -AJ Post Patient Position Sitting -AJ Row Name 05/27/25 1112 Positioning and Restraints Pre-Treatment Position in bed -AJ Post Treatment Position bed -AJ In Bed notified nsg;supine;call light within reach;encouraged to call for assist;side rails up x2;with family/caregiver Alarm status unchanged - User Spicer (r) = Recorded By, (t) = Taken By, (c) = Cosigned By Initials Name Provider Type Kala Woodall OT Occupational Therapist Outcome Measures Row Name 05/27/25 1114 How much help from another is currently needed... Putting on and taking off regular lower body clothing? 4 -AJ Bathing (including washing, rinsing, and drying) 4 -AJ Toileting (which includes using toilet bed bowman or urinal) 4 -AJ Putting on and taking off regular upper body clothing 4 -AJ Taking care of personal grooming (such as brushing teeth) 4 -AJ Eating meals 4 -AJ AM-PAC 6 Clicks Score (OT) 24 - Row Name 05/27/25 0022 How much help from another person do you currently need... Turning from your back to your side while in flat bed without using bedrails? 4 -AM Moving from lying on back to sitting on the side of a flat bed without bedrails? 4 -AM Moving to and from a bed to a chair (including a wheelchair)? 3 -AM Standing up from a chair using your arms (e.g., wheelchair, bedside chair)? 3 -AM Climbing 3-5 steps with a railing? 3 -AM To walk in hospital room? 3 -AM AM-PAC 6 Clicks Score (PT) 20 -AM Row Name 05/27/25 1114 Modified Delilah Scale Pre-Stroke Modified Forest Scale 6 - Unable to determine (UTD) from the medical record documentation - Modified Forest Scale 0 - No Symptoms at all. - Row Name 05/27/25 1114 Functional Assessment Outcome Measure Options AM-PAC 6 Clicks Daily Activity (OT);Modified Delilah - User Spicer (r) = Recorded By, (t) = Taken By, (c) = Cosigned By Initials Name Provider Type Kala Woodall OT Occupational Therapist Nino Vargas RN Registered Nurse Occupational Therapy Education Title: PT OT CHICKEN BUYER Therapies (In Progress) Topic: Occupational Therapy (In Progress) Point: ADL training (Done) Learning Progress Summary Patient Acceptance, E, VU,DU by SHANTAL at 05/27/2025 1115 Point: Precautions (Done) Learning Progress Summary Patient Acceptance, E, VU,DU by SHANTAL at 05/27/2025 1115 Point: Body mechanics (Done) Learning Progress Summary Patient Acceptance, E, VU,DU by at 05/27/2025 1115 User Spicer Initials Effective Dates Name Provider Type [facility] 05/28/24 - Kala Reddy OT Occupational Therapist OT OT Recommendation and Plan Recommended discharge disposition is based on the functional assessment performed by PT/OT/Speech therapy (as applicable) and may not reflect the medical necessity determined by your provider or services covered by an individual patient's insurance plan or patient resource. Therapy Frequency (OT): evaluation only Plan of Care Review Plan of Care Reviewed With: patient, son Progress: no change Outcome Evaluation: OT eval complete. Pt presents at or near fxl baseline, no further skilled OT services are warranted at this time. Rec d/c to home. Plan of Care Reviewed With: patient, son Outcome Evaluation: OT eval complete. Pt presents at or near fxl baseline, no further skilled OT services are warranted at this time. Rec d/c to home. Time Calculation: Evaluation Complexity (OT) Review Occupational Profile/Medical/Therapy History Complexity: brief/low complexity Assessment, Occupational Performance/Identification of Deficit Complexity: 1-3 performance deficits Clinical Decision Making Complexity (OT): problem focused assessment/low complexity Overall Complexity of Evaluation (OT): low complexity Time Calculation- OT Row Name 05/27/251115 Time Calculation- OT OT Start Time 1025 -AJ OT Received On 05/27/25 -AJ OT Goal Re-Cert Due Date 06/06/25 - Untimed Charges OT Eval/Re-eval Minutes 50 -AJ Total Minutes Untimed Charges Total Minutes 50 -AJ Total Minutes 50 -AJ User Spicer (r) = Recorded By, (t) = Taken By, (c) = Cosigned By Initials Name Provider Type Kala Reddy OT Occupational Therapist Therapy Charges for Today Code Description Service Date Service Provider Modifiers Qty [id number] OT EVAL LOW COMPLEXITY 4 05/27/2025 Kala Reddy OT GO 1 OT Discharge Summary Anticipated Discharge Disposition (OT): home Kala Reddy OT 05/27/2025 documented in this encounter Discharge Instructions * Discharge Instructions* Hawk Crowder PA-C - 05/28/2025 9:56 AM EDT Continue medication compliance Plavix 75mg daily, Aspirin 81mg daily, and Atorvastatin 20mg nightlyand lifestyle modifications adequate control of blood pressure, adequate control of cholesterol (goal LDL <70), adequate control of glucose (<140, A1c goal <7), smoking cessation, increased physical activity, and implementation of healthy diet to help reduce the risk of future cerebrovascul ar events. Also discussed the signs symptoms that would warrant the patient return back to the emergency department including unilateral weakness, unilateral numbness, visual disturbances, loss of balance, speech difficulties, and/or a sudden severe headache. Continue Plavix 75mg daily and Aspirin 81mg daily for 21 days, then stop Plavix and continue Aspirin indefinitely Follow in stroke clinic in approximately 6 weeks. Will call for scheduling * Attachments The following attachments cannot be sent through Care Everywhere. * Stroke Prevention [id number] (Libyan) * Benign Positional Vertigo (Libyan) * How to Perform the David Maneuver (Libyan) * Vertigo (Libyan) * Acute Kidney Injury Adult (Lib[place]) * Clopidogrel Tablets (Lib[place]) * Aspirin and Your Heart (Lib[place]) documented in this encounter Medications at Time of Discharge albuterol sulfate HFA 108 (90 Base) MCG/ACT inhaler Inhale 2 puffs Every 4 (Four) Hours As Needed for Wheezing. 8.5 g 05/28/2025 2:47 PM EDT 05/28/2025 aspirin 81 MG chewable tablet Chew 1 tablet Daily. atorvastatin (LIPITOR) 40 MG tablet Take 1 tablet by mouth Daily. clopidogrel (PLAVIX) 75 MG tablet Take 1 tablet by mouth Daily. 19 tablet 05/28/2025 2:47 PM EDT 05/29/2025 documented as of this encounter Progress Notes * Hawk Crowder PA-C - 05/28/2025 10:58 AM EDT Stroke Progress Note Chief Complaint: Dizziness /positional vertigo Subjective Subjective Subjective: Patient was examined this morning lying in bed no apparent distress. No acute events overnight. Sister at bedside. Patient reports that much of his dizziness and initial balance difficulty has resolved however he does still feel some dizziness particularly when moving his head to the left. Conducted [place]-Hallpike test at bedside and I do suspect there is some positional vertigo component. Discussed with patient MRI results which are negative for acute ischemic stroke. Questioned the patient concerning a past history of atrial fibrillation which is stated deficient on chart review. Patient reports that he has never been on anticoagulation and is always used aspirin. He could not specifically identify for me the date or circumstances concerning any past result of atrial fibrillation. Patientstates that even if A-fib was discovered he would not be willing to take oral anticoagulation with Eliquis or Xarelto. Deferred cardiac event monitor at this time. Patient also states that approximately 12 to 15 years ago he was continually worked up for a possible leukemia with elevated white blood cell count however no evidence of leukemia was found. Patient agrees to continue dual antiplatelettherapy for 21 days with aspirin monotherapy following. Patient states that he will no longer smoketobacco and he does not believe he requires nicotine patches. He is willing to [facility] in approximately 6 weeks as we will continue to monitor his vascular risk factors and medication however I do think he would benefit from outpatient PT vestibular therapy. Patient had noadditional questions or concerns at this time Review of Systems Constitutional: Negative for chills, diaphoresis and fever. HENT: Positive for sinus pressure. Negative for nosebleeds, sinus pain and trouble swallowing. Respiratory: Negative for shortness of breath. Cardiovascular: Negative for chest pain. Gastrointestinal: Negative for blood in stool, nausea and vomiting. Musculoskeletal: Positive for gait problem. Neurological: Positive for dizziness. Negative for tremors, seizures, syncope, facial asymmetry, speech difficulty, weakness, light-headedness, numbness and headaches. Hematological: Bruises/bleeds easily. Psychiatric/Behavioral: Negative. Constitutional: No fatigue Objective Temp: [97.4 ??F (36.3 ??C)-97.8 ??F (36.6 ??C)] 97.4 ??F (36.3 ??C) Heart Rate: [51-71] 51 Resp: [14-16] 16 BP: (95-120)/(45-72) 117/72 Objective GEN: lying in bed; in NAD HENT: normocephalic, non-erythematous oropharynx CV: no LE edema NEURO: Mental Status: A&O x 3, interactive, able to follow commands Speech: Intact Articulation CN 2-12: II - PERRLA III, IV, - EOMI VII -no gross facial asymmetry VIII - Auditory acuity intact XII - Tongue protrudes midline Motor: The patient can move all 4 extremities against gravity with no drift appreciated Sensory: intact light touch throughout Coordination: no ataxia with [id number]-rv-[id number] testing Gait/Station: deferred Results Review: I reviewed the patient's new clinical results. WBC Date Value Ref Range Status 05/27/2025 17.91 (H) 3.40 - 10.80 10*3/mm3 Final RBC Date Value Ref Range Status 05/27/2025 4.97 4.14 - 5.80 10*6/mm3 Final Hemoglobin Date Value Ref Range Status 05/27/2025 14.3 13.0 - 17.7 g/dL Final Hematocrit Date Value Ref Range Status 05/27/2025 43.9 37.5 - 51.0 % Final MCV Date Value Ref Range Status 05/27/2025 88.3 79.0 - 97.0 fL Final MCH Date Value Ref Range Status 05/27/2025 28.8 26.6 - 33.0 pg Final MCHC Date Value Ref Range Status 05/27/2025 32.6 31.5 - 35.7 g/dL Final RDW Date Value Ref Range Status 05/27/2025 14.3 12.3 - 15.4 % Final RDW-SD Date Value Ref Range Status 05/27/2025 46.4 37.0 - 54.0 fl Final MPV Date Value Ref Range Status 05/27/2025 9.4 6.0 - 12.0 fL Final Platelets Date Value Ref Range Status 05/27/2025 235 140 - 450 10*3/mm3 Final Neutrophils Absolute Date Value Ref Range Status 05/27/2025 7.16 (H) 1.70 - 7.00 10*3/mm3 Final Eosinophils Absolute Date Value Ref Range Status 05/27/2025 0.00 0.00 - 0.40 10*3/mm3 Final Basophils Absolute Date Value Ref Range Status 05/27/2025 0.00 0.00 - 0.20 10*3/mm3 Final Lab Results Component Value Date GLUCOSE 109 (H) 05/27/2025 BUN 17.4 05/27/2025 CREATININE 0.88 05/27/2025 NA 136 05/27/2025 K 3.9 05/27/2025 CL 105 05/27/2025 CALCIUM 9.0 05/27/2025 PROTEINTOT 6.3 05/27/2025 ALBUMIN 3.8 05/27/2025 ALT 12 05/27/2025 AST 17 05/27/2025 ALKPHOS 78 05/27/2025 BILITOT 0.8 05/27/2025 GLOB 2.5 05/27/2025 AGRATIO 1.5 05/27/2025 BCR 19.8 05/27/2025 ANIONGAP 8.8 05/27/2025 EGFR 83.7 05/27/2025 CT Chest Without Contrast Diagnostic Result Date: 05/27/2025 Impression: CT scan of the chest without IV contrast demonstrating mild emphysema. No active disease is seen. Consider low-dose screening CT scan of the chest if the patient meets criteria. Electronically Signed: Malick Lake MD 05/27/2025 5:01 PM EDT Workstation ID: [id number] MRI Brain Without Contrast Result Date: 05/27/2025 Impression: 1.No acute intracranial abnormality. 2.Mild chronic microvascular ischemic changes. Electronically Signed: Flavia Doherty MD 05/27/2025 1:13 PM EDT Workstation ID: [id number] XR Chest 1 View Result Date: 05/27/2025 Impression: 1. No acute cardiopulmonary process. 2. Asymmetric 14 mm nodular density overlying right upper lung. This may relate to osseous spurring associated with the first rib, given history of COPD, chest CT may be helpful to exclude any underlying pulmonary nodule. Electronically Signed: Zen Redman MD 05/27/2025 7:24 AM EDT Workstation ID: [id number] Results for orders placed during the hospital encounter of 05/26/25 Adult Transthoracic Echo Complete W/ Cont if Necessary Per Protocol (With Agitated Saline) 05/27/2025 11:43 AM Interpretation Summary Technically difficult study. Left ventricular systolic function is normal. Left ventricular ejection fraction appears to be 51 -55%. Left ventricular wall thickness is consistent with mild concentric hypertrophy Normal left atrial size and volume noted. Trace mitral valve regurgitation is present. -CTH wo on 05/26/2025 images were personally reviewed and showed no acute ischemic or hemorrhagic stroke -CTA of the head and neck images from 05/26/2025 were personally reviewed and showed no flow limiting stenosis or LVO -MRI brain personally reviewed and is without evidence of acute ischemic stroke -Transthoracic echocardiogram from 05/27/2025 report was personally reviewed and showed left ventricular ejection fraction of 51 to 55%, no left atrial dilation -A1c from 05/27/2025 was 6% -LDL from 05/27/2025 was 58 Assessment/Plan This is an 85-year-old male with past medical history significant for tobacco abuse, HTN, COPD, reported A-fib (not on OAC), HLD, possible leukemia presented to [facility] for furtherevaluation of inability to walk, balance difficulty, and truncal ataxia. Last known well at 1500 on05/26/2025. CT head revealed no acute intracranial normality. CTA head/neck revealed no flow-limiting stenosis or LVO. He was deemed an appropriate IV thrombolytic candidate, patient ultimately refused TNK. He was not a candidate for neurovascular intervention as there is no LVO on CT scan. He received a loading dose of 300 mg Plavix and 24 mg aspirin. Of note, his is white blood cell count was found to be 20,000. He was transferred to our facility for higher level of care. Antiplatelet MAINTENANCE DATA ANALYST: None Anticoagulant MAINTENANCE DATA ANALYST: None # Dizziness # Positional vertigo -TIA cannot be ruled out given the uncontrolled vascular risk factors including ongoing tobacco abuse and hypertension and subjective report of A-fib history. Suspect some component of benign positional vertigo -CTH wo on 05/26/2025 images were personally reviewed and showed no acute ischemic or hemorrhagic stroke -CTA of the head and neck images from 05/26/2025 were personally reviewed and showed no flow limiting stenosis or LVO -MRI brain personally reviewed and is without evidence of acute ischemic stroke -Transthoracic echocardiogram from 05/27/2025 report was personally reviewed and showed left ventricular ejection fraction of 51 to 55%, no left atrial dilation -A1c from 05/27/2025 was 6% Recommendations -Continue Plavix 75 mg and aspirin 81 mg for 21 days with a plan to switch to aspirin 81 mg daily monotherapy afterward for secondary stroke prevention -Recommended outpatient cardiac event monitor given reports of history of A-fib. Patient declines currently and declines OAC if A-fib were discovered. Plan to continue to discuss as outpatient in clinic. -Activity as tolerated, fall risk precautions -PT/OT recommend discharge home -Outpatient physical therapy for vestibular therapy added to ADT -Follow-up in neurology stroke clinic in approximately 6 weeks (added to ADT) #Essential hypertension -Target systolic blood pressure goals of normotension - Avoid hypotension and ensure adequate hydration - Recommend patient follow-up with PCP for monitoring and adjustments to medications as needed #Hyperlipidemia -Atorvastatin 20mg nightly -LDL from 05/27/2025 was 58. Within goal less than 70 #Tobacco abuse, ongoing -Tobacco cessation and education provided - Patient denies need for nicotine patch assistance Stroke will sign off at this time. Plan of care discussed with patient, patient's family, primary medical team, and Dr. Jacobo. Please call for any further questions or concerns Hawk Crowder PA-C Neurology stroke [facility] Cosigned by Kerwin Jacobo MD at 06/15/2025 11:56 AM EDT Associated attestation - Kerwin Jacobo MD - 06/15/2025 11:56 AM EDT I have reviewed this documentation and agree. * Nomi Nicholas MD - 05/27/2025 1:13 PM EDT Stroke Progress Note Chief Complaint: Feeling dizzy/lightheaded Subjective Subjective Subjective: The patient is lying down in the bed in NAD. The patient's son was at the bedside. The patient stated that he is feeling better today but not quite back to his baseline. I have a detailed discussion with the patient and his son regarding imaging findings what could possibly explain his symptoms. Wealso discussed management plan moving forward. All questions and concerns were answered. No other acute complains at this time Review of Systems Constitutional: No fatigue Objective Temp: [97.4 ??F (36.3 ??C)-98.2 ??F (36.8 ??C)] 97.5 ??F (36.4 ??C) Heart Rate: [54-64] 60 Resp: [16] 16 BP: (100-140)/(62-79) 107/74 Objective GEN: lying in bed; in NAD HENT: normocephalic, non-erythematous oropharynx CV: no LE edema NEURO: Mental Status: A&O x 3, interactive, able to follow commands Speech: Intact Articulation CN 2-12: II - PERRLA III, IV, - EOMI VII -no gross facial asymmetry VIII - Auditory acuity intact XII - Tongue protrudes midline Motor: The patient can move all 4 extremities against gravity with no drift appreciated Sensory: intact light touch throughout Coordination: no ataxia with [id number]-[id number]-aweo testing Gait/Station: deferred Results Review: I reviewed the patient's new clinical results. WBC Date Value Ref Range Status 05/27/2025 17.91 (H) 3.40 - 10.80 10*3/mm3 Final RBC Date Value Ref Range Status 05/27/2025 4.97 4.14 - 5.80 10*6/mm3 Final Hemoglobin Date Value Ref Range Status 05/27/2025 14.3 13.0 - 17.7 g/dL Final Hematocrit Date Value Ref Range Status 05/27/2025 43.9 37.5 - 51.0 % Final MCV Date Value Ref Range Status 05/27/2025 88.3 79.0 - 97.0 fL Final MCH Date Value Ref Range Status 05/27/2025 28.8 26.6 - 33.0 pg Final MCHC Date Value Ref Range Status 05/27/2025 32.6 31.5 - 35.7 g/dL Final RDW Date Value Ref Range Status 05/27/2025 14.3 12.3 - 15.4 % Final RDW-SD Date Value Ref Range Status 05/27/2025 46.4 37.0 - 54.0 fl Final MPV Date Value Ref Range Status 05/27/2025 9.4 6.0 - 12.0 fL Final Platelets Date Value Ref Range Status 05/27/2025 235 140 - 450 10*3/mm3 Final Neutrophils Absolute Date Value Ref Range Status 05/27/2025 7.16 (H) 1.70 - 7.00 10*3/mm3 Final Eosinophils Absolute Date Value Ref Range Status 05/27/2025 0.00 0.00 - 0.40 10*3/mm3 Final Basophils Absolute Date Value Ref Range Status 05/27/2025 0.00 0.00 - 0.20 10*3/mm3 Final Lab Results Component Value Date GLUCOSE 109 (H) 05/27/2025 BUN 17.4 05/27/2025 CREATININE 0.88 05/27/2025 NA 136 05/27/2025 K 3.9 05/27/2025 CL 105 05/27/2025 CALCIUM 9.0 05/27/2025 PROTEINTOT 6.3 05/27/2025 ALBUMIN 3.8 05/27/2025 ALT 12 05/27/2025 AST 17 05/27/2025 ALKPHOS 78 05/27/2025 BILITOT 0.8 05/27/2025 GLOB 2.5 05/27/2025 AGRATIO 1.5 05/27/2025 BCR 19.8 05/27/2025 ANIONGAP 8.8 05/27/2025 EGFR 83.7 05/27/2025 XR Chest 1 View Result Date: 05/27/2025 Impression: 1. No acute cardiopulmonary process. 2. Asymmetric 14 mm nodular density overlying right upper lung. This may relate to osseous spurring associated with the first rib, given history of COPD, chest CT may be helpful to exclude any underlying pulmonary nodule. Electronically Signed: Zen Redman MD 05/27/2025 7:24 AM EDT Workstation ID: [id number] Results for orders placed during the hospital encounter of 05/26/25 Adult Transthoracic Echo Complete W/ Cont if Necessary Per Protocol (With Agitated Saline) 05/27/2025 11:43 AM Interpretation Summary Technically difficult study. Left ventricular systolic function is normal. Left ventricular ejection fraction appears to be 51 -55%. Left ventricular wall thickness is consistent with mild concentric hypertrophy Normal left atrial size and volume noted. Trace mitral valve regurgitation is present. -CTH wo on 05/26/2025 images were personally reviewed and showed no acute ischemic or hemorrhagic stroke -CTA of the head and neck images from 05/26/2025 were personally reviewed and showed no flow limiting stenosis or LVO -MRI brain is pending -Transthoracic echocardiogram from 05/27/2025 report was personally reviewed and showed left ventricular ejection fraction of 51 to 55%, no left atrial dilation -A1c from 05/27/2025 was 6% -LDL from 05/27/2025 was 58 Assessment/Plan This is an 85-year-old male with past medical history significant for tobacco abuse, HTN, COPD, reported A-fib (not on OAC), HLD, possible leukemia presented to [facility] for furtherevaluation of inability to walk, balance difficulty, and truncal ataxia. Last known well at 1500 on05/26/2025. CT head revealed no acute intracranial normality. CTA head/neck revealed no flow-limiting stenosis or LVO. He was deemed an appropriate IV thrombolytic candidate, patient ultimately refused TNK. He was not a candidate for neurovascular intervention as there is no LVO on CT scan. He received a loading dose of 300 mg Plavix and 24 mg aspirin. Of note, his is white blood cell count was found to be 20,000. He was transferred to our facility for higher level of care. Antiplatelet MAINTENANCE DATA ANALYST: None Anticoagulant MAINTENANCE DATA ANALYST: None #Dizziness #Truncal ataxia -Concern for TIA versus acute ischemic stroke given the uncontrolled vascular risk factors including ongoing tobacco abuse and hypertension -CTH wo on 05/26/2025 images were personally reviewed and showed no acute ischemic or hemorrhagic stroke -CTA of the head and neck images from 05/26/2025 were personally reviewed and showed no flow limiting stenosis or LVO -MRI brain is pending -Transthoracic echocardiogram from 05/27/2025 report was personally reviewed and showed left ventricular ejection fraction of 51 to 55%, no left atrial dilation -A1c from 05/27/2025 was 6% -LDL from 05/27/2025 was 58 Recommendations -TNK refused by patient -MRI brain pending -Continue Plavix 75 mg and aspirin 81 mg for 21 days with a plan to switch to aspirin 81 mg daily monotherapy afterward for secondary stroke prevention -Recommend atorvastatin 20 mg nightly for secondary stroke prevention. Target LDL level of less than 55 -Target systolic blood pressure goals of normotension -Activity as tolerated, fall risk precautions -PT/OT/CHICKEN BUYER evaluation #Essential hypertension -As detailed above -Primary team to manage #Hyperlipidemia -Atorvastatin 20mg nightly #Diabetes Mellitus type 2, goal A1c <7 -Maintain euglycemia -Management per primary team #Tobacco abuse, ongoing -Daily tobacco cessation education to be provided -Patient may require NRT during admission Stroke will continue to follow. Please call for any further questions or concerns Nomi Nicholas MD, Msc, PhD Vascular Neurologist [facility] * Rose Marie Melara DO - 05/27/2025 1:11 PM EDT Images from the original note were not included. [facility] Medicine Services PROGRESS NOTE Patient Name: Yung Mendez : 1940 Date of Admission: 05/26/2025 Primary Care Physician: Provider, No Known Subjective Subjective CC: F/u stroke rule out HPI: Patient reports ongoing dizziness and balance issues especially with rapidly turning his head Objective Objective Vital Signs: Temp: [97.4 ??F (36.3 ??C)-98.2 ??F (36.8 ??C)] 97.5 ??F (36.4 ??C) Heart Rate: [54-64] 60 Resp: [16] 16 BP: (100-140)/(62-79) 107/74 Physical Exam: Constitutional: No acute distress, awake, alert HENT: NCAT, mucous membranes moist Respiratory: Clear to auscultation bilaterally, respiratory effort normal Cardiovascular: RRR, no murmurs, rubs, or gallops Gastrointestinal: soft, nontender, nondistended Musculoskeletal: No bilateral ankle edema Psychiatric: Appropriate affect, cooperative Neurologic: Oriented x 3, speech clear, no focal deficits Skin: No rashes Results Reviewed: LAB RESULTS: Lab 05/27/25 1106 05/27/25 0020 WBC 17.91* 19.36* HEMOGLOBIN 14.3 14.3 HEMATOCRIT 43.9 44.2 PLATELETS 235 239 NEUTROS ABS 7.16* -- EOS ABS 0.00 -- MCV 88.3 89.8 CRP -- <0.30 PROCALCITONIN -- 0.03 LACTATE -- 1.0 PROTIME 14.4 -- Lab 05/27/25 1106 05/27/25 0020 SODIUM 136 141 POTASSIUM 3.9 4.3 CHLORIDE 105 106 CO2 22.2 26.0 ANION GAP 8.8 9.0 BUN 17.4 19.8 CREATININE 0.88 0.96 EGFR 83.7 77.0 GLUCOSE 109* 112* CALCIUM 9.0 9.0 MAGNESIUM 2.0 2.0 PHOSPHORUS 2.5 2.9 HEMOGLOBIN A1C 6.00* -- Lab 05/27/25 1106 TOTAL PROTEIN 6.3 ALBUMIN 3.8 GLOBULIN 2.5 ALT (SGPT) 12 AST (SGOT) 17 BILIRUBIN 0.8 ALK PHOS 78 Lab 05/27/25 1106 PROTIME 14.4 INR 1.06 Lab 05/27/25 1106 CHOLESTEROL 106 LDL CHOL 58 HDL CHOL 32* TRIGLYCERIDES 81 Brief Urine Lab Results (Last result in the past 365 days) Color Clarity Blood Leuk Est Nitrite Protein CREAT Urine HCG 05/27/25 0418 Yellow Clear Negative Negative Negative Negative Microbiology Results Abnormal None XR Chest 1 View Result Date: 05/27/2025 XR CHEST 1 VW Date of Exam: 05/27/2025 2:44 AM EDT Indication: copd, wheezing on exam. Comparison: None available. Findings: The cardiomediastinal silhouette is within normal limits. Lungs are clear. No focal consolidation, pneumothorax, or significant pleural effusion. Osseous structures grossly intact. Asymmetric nodular density overlying the right upper lung which may relate to osteophyte formation associated with the anterior right first rib versus pulmonary nodule. Impression: Impression: 1. No acute cardiopulmonary process. 2. Asymmetric 14 mm nodular density overlying right upper lung. This may relate to osseous spurring associated with the first rib, given history of COPD, chest CT may be helpful to exclude any underlying pulmonary nodule. Electronically Signed: Zen Redman MD 05/27/2025 7:24 AM EDT Workstation ID: [id number] CT Outside Head Result Date: 05/27/2025 This procedure was auto-finalized with no dictation required. CT Outside Head Result Date: 05/27/2025 This procedure was auto-finalized with no dictation required. CT Outside Neck Result Date: 05/27/2025 This procedure was auto-finalized with no dictation required. Results for orders placed during the hospital encounter of 05/26/25 Adult Transthoracic Echo Complete W/ Cont if Necessary Per Protocol (With Agitated Saline) 05/27/2025 11:43 AM Interpretation Summary Technically difficult study. Left ventricular systolic function is normal. Left ventricular ejection fraction appears to be 51 -55%. Left ventricular wall thickness is consistent with mild concentric hypertrophy Normal left atrial size and volume noted. Trace mitral valve regurgitation is present. Current medications: Scheduled Meds:arformoterol, 15 mcg, Nebulization, BID - RT And budesonide, 0.5 mg, Nebulization, BID - RT And revefenacin, 175 mcg, Nebulization, Daily - RT aspirin, 81 mg, Oral, Daily Or aspirin, 300 mg, Rectal, Daily atorvastatin, 80 mg, Oral, Nightly clopidogrel, 75 mg, Oral, Daily famotidine, 40 mg, Oral, Daily insulin regular, 2-7 Units, Subcutaneous, Q6H nicotine, 1 patch, Transdermal, Q24H Continuous Infusions: PRN Meds:. acetaminophen OR acetaminophen OR acetaminophen albuterol aluminum-magnesium hydroxide-simethicone benzonatate senna-docusate sodium AND polyethylene glycol AND bisacodyl AND bisacodyl Calcium Replacement - Follow Nurse / BPA Driven Protocol dextrose dextrose glucagon (human recombinant) Magnesium Cardiology Dose Replacement - Follow Nurse / BPA Driven Protocol Morphine AND naloxone nitroglycerin ondansetron Phosphorus Replacement - Follow Nurse / BPA Driven Protocol Potassium Replacement - Follow Nurse / BPA Driven Protocol sodium chloride sodium chloride Assessment & Plan Assessment & Plan Active Hospital Problems Diagnosis POA Stroke [I63.9] Yes COPD (chronic obstructive pulmonary disease) [J44.9] Yes Tobacco abuse [Z72.0] Yes Paroxysmal atrial fibrillation [I48.0] No ALIDA (acute kidney injury) [N17.9] Yes Leukocytosis [D72.829] Yes Resolved Hospital Problems Diagnosis Date Resolved POA Chronic respiratory failure [J96.10] 05/26/2025 Yes Chronic atrial fibrillation [I48.20] 05/26/2025 No Brief Hospital Course to date: Yung Mendez is a 85 y.o. male with a past medical history of hypertension, active smoking, COPD noncompliant with inhaler therapy, A-fib (on aspirin only), hyperlipidemia, and possible leukemia who presented with complaints of dizziness. Dizziness - concern for posterior stroke - Patient reports episodes of transient vision loss ( it got dark ) and dizziness. Patient declinedTNK. CT head and CTA head and neck scans at OSH demonstrated no acute intracranial process, no acute stenosis or occlusion. - ddx also includes benign vertigo such as BPPV - MRI brain pending - continue ASA/plavix per stroke team - continue high intensity statin - PT/OT/CHICKEN BUYER - fall precautions - Permissive hypertension for autoregulation COPD Ongoing Tobacco Abuse - Patient reports that he is not compliant with inhaler therapy and continues to smoke - Smoking cessation advised, patient agreeable to NRT - albuterol neb prn wheezing and sob, initiate [id number] - incentive rashmi, opep, tessalon prn cough - he will benefit from outpatient pulmonary clinic appointment with full PFTs if he is willing to attend Leukocytosis - infectious work-up negative - hx of leukemia ?CML, data deficient History of paroxysmal Afib HLD -continue ASA -monitor and replete serum electrolytes as needed Abnormal CXR: - possible pulmonary nodule per CXR, given smoking hx will get CT chest Expected Discharge Location and Transportation: Home? Expected Discharge Expected Discharge Date: 05/29/2025; Expected Discharge Time: VTE Prophylaxis: Mechanical VTE prophylaxis orders are present. AM-PAC 6 Clicks Score (PT): 23 (05/27/25 1142) CODE STATUS: Code Status and Medical Interventions: CPR (Attempt to Resuscitate); Full Support Ordered at: 05/26/259 Code Status (Patient has no pulse and is not breathing): CPR (Attempt to Resuscitate) Medical Interventions (Patient has pulse or is breathing): Full Support Level Of Support Discussed With: Patient Rose Marie Melara DO 05/27/25 documented in this encounter H&P Notes * Elvi Sandoval MD - 05/26/2025 10:54 PM EDT Images from the original note were not included. [facility] Medicine Services HISTORY AND PHYSICAL Patient Name: Yung Mendez : 1940 Primary Care Physician: Provider, No Known Date of admission: 05/26/2025 Subjective Subjective Chief Complaint: dizziness HPI: Yung Mendez is a 85 y.o. male with a past medical history of hypertension, active smoking, COPD noncompliant with inhaler therapy, A-fib (on aspirin only), hyperlipidemia, and possible leukemia. Patient states that he was diagnosed with leukemia sometime ago but declined treatment The patient reports an episode at home where it got dark and he was dizzy while in the kitchen. He used a cane to walk around during this episode, which is unusual for him as he normally has no issues walking. This is the first time such an episode has occurred. He denies any headaches, chest pains, difficulty breathing, nausea, or vomiting today. When standing up, the patient felt a little dizzy, but denies any sensation of the room spinning. He has inhalers but admits to not using them regularly. The patient is a current smoker, consuming about 18 cigarettes per day, and has attempted to quit in the past. He expresses willingness to use a nicotine patch during his hospital stay. Mr. Mendez denies any alcohol consumption or drug use. He presented to the [facility] today at 1500 with posterior circulation stroke symptoms. The ER provider reported that when the patient was lying down that he had minimal symptoms however when he went to get him up that he almost had a presyncopal episode and ataxic gait with balance difficulty. He was a candidate for TNK however he refused it. In the ER received: fluids and loading dose of aspirin and Plavix. Patient transferred for MRI and continued stroke workup Personal History No past medical history on file. No past surgical history on file. Family History: family history is not on file. Social History: Social History Social History Narrative Not on file Medications: Available home medication information reviewed. aspirin Fish oil 300 mg daily Aspirin 81 mg Atorvastatin 40 mg No Known Allergies Objective Objective Vital Signs: Physical Exam Vitals reviewed. Constitutional: General: He is not in acute distress. Appearance: Normal appearance. HENT: Head: Normocephalic and atraumatic. Right Ear: External ear normal. Left Ear: External ear normal. Nose: Nose normal. Mouth/Throat: Mouth: Mucous membranes are moist. Pharynx: Oropharynx is clear. Comments: No teeth Patient reports that he wears dentures Eyes: General: No scleral icterus. Extraocular Movements: Extraocular movements intact. Pupils: Pupils are equal, round, and reactive to light. Cardiovascular: Rate and Rhythm: Normal rate and regular rhythm. Pulses: Normal pulses. Heart sounds: Normal heart sounds. No murmur heard. Pulmonary: Effort: Pulmonary effort is normal. No respiratory distress. Breath sounds: No stridor. Wheezing present. Abdominal: General: Bowel sounds are normal. There is no distension. Palpations: Abdomen is soft. Tenderness: There is no abdominal tenderness. There is no guarding. Genitourinary: Comments: deferred Musculoskeletal: General: Normal range of motion. Cervical back: Normal range of motion and neck supple. No rigidity or tenderness. Right lower leg: No edema. Left lower leg: No edema. Skin: General: Skin is warm and dry. Capillary Refill: Capillary refill takes less than 2 seconds. Coloration: Skin is not jaundiced. Neurological: General: No focal deficit present. Mental Status: He is alert and oriented to person, place, and time. Cranial Nerves: No cranial nerve deficit. Motor: No weakness. Gait: Gait abnormal. Psychiatric: Mood and Affect: Mood normal. Behavior: Behavior normal. Thought Content: Thought content normal. Result Review: I have personally reviewed the results from the time of this admission to 05/26/2025 23:32 EDT and agree with these findings: [x] Laboratory list / accordion [] Microbiology [x] Radiology [x] EKG/Telemetry [] Cardiology/Vascular [] Pathology [x] Old records [] Other: Most notable findings include: LAB RESULTS: Microbiology Results (last 10 days) No results found for the last 240 hours. No radiology results from the last 24 hrs Assessment & Plan Assessment & Plan Stroke COPD (chronic obstructive pulmonary disease) Tobacco abuse Paroxysmal atrial fibrillation ALIDA (acute kidney injury) Leukocytosis Stroke Assessment: Patient reports episodes of transient vision loss ( it got dark ) and dizziness. Patient declined TNK. CT head and CTA head and neck scans at demonstrated no acute intracranial process, no acute stenosis or occlusion. Plan: - Admit to medicine with telemetry monitoring - Stroke MARYELLEN entered stroke order set // NPO status - MRI brain and TTE ordered -ASA + plavix + statin -obtain EKG - PT/OT/CHICKEN BUYER consultation in the a.m. -fall precautions - Permissive hypertension for autoregulation - Nicardipine drip as needed for systolic blood pressure greater 200mmHg 2. COPD // Tobacco Abuse - Patient reports that he is not compliant with inhaler therapy and continues to smoke // no pfts available to determine severity of his obstructive lung disease // + wheezing on exam - Smoking cessation advised, patient agreeable to NRT -albuterol neb prn wheezing and sob // initiate [id number] -incentive rashmi // opep // tessalon prn cough - Recommend 6-minute walk test prior to hospital discharge -he will benefit from outpatient pulmonary clinic appointment with full PFTs // if he is willing toattend 3. Leukocytosis // WBC 20 at - Repeat complete blood count (CBC) labs here at [facility] - Send UA, respiratory viral panel, check CXR 4. History of paroxysmal Afib // HLD -Repeat EKG -continue ASA -monitor and replete serum electrolytes as needed -check A1C and lipid panel in am - Insulin sliding scale per hospital protocol //glucose checks every 6h 5. ALIDA -serum Cr 1.2 at labs // unclear of his baseline -repeat BMP -gentle IV fluids overnight with normal saline 6. Questionable hx of Leukemia -Consider outpatient hematology/oncology consultation if patient interested in pursuing treatment VTE Prophylaxis: Mechanical VTE prophylaxis orders are present. CODE STATUS: Code Status and Medical Interventions: CPR (Attempt to Resuscitate); Full Support Ordered at: 05/26/258 Code Status (Patient has no pulse and is not breathing): CPR (Attempt to Resuscitate) Medical Interventions (Patient has pulse or is breathing): Full Support Level Of Support Discussed With: Patient Expected Discharge Expected Discharge Date: 05/29/2025; Expected Discharge Time: Elvi Sandoval MD 05/26/25 documented in this encounter Consult Notes * Belle Lobo RN - 05/27/2025 12:16 PM EDTAssociated Order(s): IP CONSULT TO SHOW JUMPING INSTRUCTOR Diabetes Education Patient Name: Yung Mendez Date of : 1940 Admit Date: 05/26/2025 Pt does not meet criteria for diabetes education. Current A1c is 6.0 noted during chart review. Pt is on no home meds exclusively for diabetes and has no documented history of diabetes per H&P. Thank you. Electronically signed by: Belle Lobo RN 05/27/25 12:16 EDT * Nga Delacruz APRN - 05/26/2025 10:00 PM EDT Stroke Consult Note Patient Name: Yung Mendez Age: 85 y.o. Sex: male : 1940 Primary Care Physician: Provider, No Known Handedness: Right Race: Chief Complaint/Reason for Consultation: Inability to walk, dizziness, truncal ataxia HPI: Yung Mendez is an 85-year-old male with past medical history significant for tobacco abuse, HTN, COPD, reported A-fib (not on OAC), HLD, possible leukemia presented to [facility] for further evaluation of inability to walk, balance difficulty, and truncal ataxia. Last known well at 1500 on 05/26/2025. Blood pressure was 121/72, he was given IV fluids. OSH provider attempted to walk him he had a presyncopal episode, became very ataxic and could not walk. CT head revealed no acute intracranial normality. CTA head/neck revealed no flow-limiting stenosis or LVO. He wasdeemed an appropriate IV thrombolytic candidate, patient ultimately refused TNK. He was not a candid ate for neurovascular intervention as there is no LVO on CT scan. He received a loading dose of 300mg Plavix and 24 mg aspirin. Of note, his is white blood cell count was found to be 20.4. He was transferred to our facility for higher level of care. On arrival to our facility, his NIH is 0. His exam is notable for left eye ptosis, he tells me thishas been going on for about 3 months he tells me he feels weak and numb on his right leg but this is his baseline. He still complains of mild dizziness but tells me that this is much improved. He denies vertiginous dizziness. He denies any vision changes. Of note he tells me he does have history ofPAF, he denies blood thinner use but tells me that he treats it with dallin. He also tells me he was diagnosed with leukemia 3 months ago but has not followed up. Last Known Normal Date/Time: 05/26/2025 1500 EST Review of Systems Musculoskeletal: Positive for gait problem. Neurological: Positive for dizziness, weakness, light-headedness and numbness. All other systems reviewed and are negative. No past medical history on file. No past surgical history on file. No family history on file. Social History Socioeconomic History Marital status: Not on File Prior to Admission medications Not on File Neurological Exam Mental Status Alert. Oriented to person, place, time and situation. Oriented to person, place, and time. Recent and remote memory are intact. Speech is normal. Language is fluent with no aphasia. Attention and concentration are normal. Cranial Nerves CN II: Visual mills full to confrontation. CN III, IV, : Extraocular movements intact bilaterally. Left ptosis. Pupils equal round and reactive to light bilaterally. CN V: Facial sensation is normal. CN VII: Full and symmetric facial movement. CN VIII: Hearing appears intact. CN XII: Tongue midline without atrophy or fasciculations. Motor Normal muscle bulk throughout. Normal muscle tone. Strength is 5/5 throughout all four extremities. Sensory Sensation is intact to light touch, pinprick, vibration and proprioception in all four extremities.No right-sided hemispatial neglect. No left-sided hemispatial neglect. Coordination Right: Wdbusp-lp-lgbo normal. Vykc-kj-xqql normal.Left: Hiuzil-zb-hjig normal. Mhce-pv-amsd normal. Gait Normal gait. Not observed. Physical Exam Vitals and nursing note reviewed. ARASELIT: Head: Normocephalic. Eyes: Extraocular Movements: Extraocular movements intact. Pupils: Pupils are equal, round, and reactive to light. Cardiovascular: Rate and Rhythm: Normal rate and regular rhythm. Pulses: Normal pulses. Heart sounds: Normal heart sounds. Pulmonary: Effort: Pulmonary effort is normal. No respiratory distress. Breath sounds: Normal breath sounds. Skin: General: Skin is warm and dry. Capillary Refill: Capillary refill takes less than 2 seconds. Neurological: General: No focal deficit present. Mental Status: He is alert and oriented to person, place, and time. Cranial Nerves: No cranial nerve deficit. Sensory: No sensory deficit. Motor: Motor strength is normal.No weakness. Gait: Gait is intact. Psychiatric: Attention and Perception: Attention normal. Mood and Affect: Mood normal. Speech: Speech normal. Behavior: Behavior normal. Acute Stroke Data Thrombolytic Inclusion / Exclusion Criteria Time: 19:25 EDT Person Administering Scale: Nga Delacruz APRN YES NO INCLUSION CRITERIA CLASS I [x] [] Suspected diagnosis of acute ischemic stroke with measureable neurological deficit. Low NIHSS with disabling stroke symptoms. [x] [] Onset of stroke symptoms < 3 hours before beginning treatment >/ 18 years old Stroke symptom onset = time patient was last seen well or without symptoms (LKW) [] [] Onset of symptoms between 3-4.5 hours: >/= 80 years old (safe Class IIa) with history of both diabetes and prior CVA (reasonable Class IIb) AND NIHSS </= 25 *If not eligible for IV Thrombolytic consider neuro intervention for LKW within 24 hours YES NO EXCLUSION CRITERIA (CONTRAINDICATIONS) CLASS III EVIDENCE HARM [] [] Blood pressure >185/110 medically refractory to IV medications [] [] Active bleeding at a non-compressible site [] [] Active intracranial hemorrhage (ICH) [] [] Symptoms suggestive of subarachnoid hemorrhage (SAH) [] [] GI bleed within 21 days [] [] Ischemic stroke within 3 months [] [] Severe head trauma within 3 months [] [] Intracranial or intraspinal surgery within 3 months [] [] Current GI malignancy [] [] Intracranial neoplasm [] [] Infective endocarditis [] [] Aortic arch dissection [] [] Active coagulopathy with INR >1.7, platelets <100,000, PTT > 40 sec, PT > 15 sec *For warfarin, administration can begin before blood tests resulted. Discontinue for above values. [] [] Treatment dose* of LMWH (Lovenox) in last 24 hours *prophylactic dosages are not a contraindication [] [] Concurrent use of antiplatelet agents' glycoprotein inhibitors IIb/IIIa (Integrilin, etc.) [] [] Thrombin or factor Xa inhibitors (Eliquis, Xarelto, Arixtra) taken in last 48 hours YES NO CLASS II: AIS WITH THE FOLLOWING CONDITIONS - TREATMENT RISKS SHOULD BE WEIGHED AGAINST POSSIBLE BENEFITS. [] [] Major trauma in last 14 days, recent major surgery in last 14 days, intracranial arterial dissection, giant unruptured and unsecured intracranial aneurysm, pericarditis [] [] The risks, benefits, and alternatives have been discussed with the patient or family related to the administration of IV thrombolytic therapy for stroke symptoms. [] [] I have discussed and reviewed the patient's case and imaging with the attending prior to IV thrombolytic therapy. TIME N/A Time IV thrombolytic administered: Patient refused Hospital Meds: Scheduled- Infusions- No current facility-administered medications for this encounter. PRNs- Functional Status Prior to Current Stroke/Forest Score: 0 NIH Stroke Scale Time: 19:25 EDT Person Administering Scale: Nga Delacruz APRN Interval: 24 hrs post onset of symptoms +/- 20 mins 1a. Level of Consciousness: 0-->Alert, keenly responsive 1b. LOC Questions: 0-->Answers both questions correctly 1c. LOC Commands: 0-->Performs both tasks correctly 2. Best Gaze: 0-->Normal 3. Visual: 0-->No visual loss 4. Facial Palsy: 0-->Normal symmetrical movements 5a. Motor Arm, Left: 0-->No drift, limb holds 90 (or 45) degrees for full 10 secs 5b. Motor Arm, Right: 0-->No drift, limb holds 90 (or 45) degrees for full 10 secs 6a. Motor Leg, Left: 0-->No drift, leg holds 30 degree position for full 5 secs 6b. Motor Leg, Right: 0-->No drift, leg holds 30 degree position for full 5 secs 7. Limb Ataxia: 0-->Absent 8. Sensory: 0-->Normal, no sensory loss 9. Best Language: 0-->No aphasia, normal 10. Dysarthria: 0-->Normal 11. Extinction and Inattention (formerly Neglect): 0-->No abnormality Total (NIH Stroke Scale): 0 Results Reviewed: I have personally reviewed current lab, radiology, and data. -WBC 20.4 -eGFR 57 Creatinine 1.2 -CT head negative for any acute intracranial normality -CTA head/neck negative for any flow-limiting stenosis or LVO. Assessment/Plan: This is an 85-year-old male with past medical history significant for tobacco abuse, HTN, COPD, reported A-fib (not on OAC), HLD, possible leukemia presented to [facility] for furtherevaluation of inability to walk, balance difficulty, and truncal ataxia. Last known well at 1500 on05/26/2025. CT head revealed no acute intracranial normality. CTA head/neck revealed no flow-limiting stenosis or LVO. He was deemed an appropriate IV thrombolytic candidate, patient ultimately refused TNK. He was not a candidate for neurovascular intervention as there is no LVO on CT scan. He received a loading dose of 300 mg Plavix and 24 mg aspirin. Of note, his is white blood cell count was found to be 20,000. He was transferred to our facility for higher level of care. Antiplatelet MAINTENANCE DATA ANALYST: None Anticoagulant MAINTENANCE DATA ANALYST: None #Dizziness #Truncal ataxia Suspected posterior infarct -TIA/CVA order set without thrombolytic therapy has been initiated -TNK refused by patient -NPO until bedside nursing dysphagia screen completed -MRI brain pending -TTE pending -A1c and lipid panel in AM -Received loading dose of 300 mg Plavix and 324 mg aspirin -Continue Plavix 75 mg and aspirin 81 mg -Activity as tolerated, fall risk precautions -PT/OT/CHICKEN BUYER evaluation - I have requested imaging disc be uploaded 2. Essential hypertension -Allow autoregulation of blood pressure for adequate cerebral blood flow, goal SBP <220 -Avoid hypotension -Primary team to manage 3. Hyperlipidemia -Lipid panel in AM -Atorvastatin 80mg nightly 4. Diabetes Mellitus type 2, goal A1c <7 -A1c in AM -Maintain euglycemia -Management per primary team 5. Tobacco abuse, ongoing -Daily tobacco cessation education to be provided -Patient may require NRT during admission Plan of care was discussed with hospitalist, primary nurse, patient and family at bedside. Stroke neurology will continue to follow. Please call with any questions or concerns. Thank you for this consult. Nga Delacruz APRN Neuro Stroke May 26, 2025 19:25 EDT documented in this encounter Nursing Notes * Enid Travis RN - 05/28/2025 3:41 PM EDT Patient discharged home via private car with family. Discharge paperwork and stroke booklet went over with the patient and the family and all questions answered. Patient medication was sent with him. * Nino Ordonez RN - 05/28/2025 6:18 AM EDT No changes noted through the night; bed in low locked position with call light in reach; family at bedside; monitoring in place; * Nino Ordonez RN - 05/27/2025 9:12 PM EDT Goal Outcome Evaluation: Continue POC * Nino Ordonez RN - 05/27/2025 7:28 PM EDT Pt alert and oriented x 4 sitting up in the bed talking on the phone at this time; pt's sister at bedside; pt denies any questions or concerns at this time; monitoring in place; bed in low locked position with call light in reach; * Enid Travis RN - 05/27/2025 6:22 PM EDT Goal Outcome Evaluation: Outcome Evaluation: Patient A&O x4 able to voice wants and needs to staff, has denied pain today. MRI and CT of his chest was obtained today. No new issues noted during this shift will continue with POC. Has alarms on and in place with call light within reach. * Sana Greco, MS CCC-CHICKEN BUYER - 05/27/2025 10:35 AM EDT Goal Outcome Evaluation: Plan of Care Reviewed With: patient, family Anticipated Discharge Disposition (CHICKEN BUYER): No further CHICKEN BUYER services warranted CHICKEN BUYER Diagnosis: functional speech/language skills, functional cognitive- linguistic skills (05/27/25 1000) * Melinda uHnt, PT - 05/27/2025 10:30 AM EDT Goal Outcome Evaluation: Plan of Care Reviewed With: patient, family Outcome Evaluation: Pt presents at baseline for functional mobility tasks. No deficits identified requiring PT services. Rec home upon dc. Anticipated Discharge Disposition (PT): home * Kala Reddy, OT - 05/27/2025 10:25 AM EDT Goal Outcome Evaluation: Plan of Care Reviewed With: patient, son Progress: no change Outcome Evaluation: OT eval complete. Pt presents at or near fxl baseline, no further skilled OT services are warranted at this time. Rec d/c to home. Anticipated Discharge Disposition (OT): home * Nino Ordonez RN - 05/27/2025 2:07 AM EDT Goal Outcome Evaluation: Continue POC * Nino Ordonez RN - 05/27/2025 2:03 AM EDT Disc sent to radiology for uploading * Nino Ordonez RN - 05/27/2025 12:06 AM EDT IVF initiated, nasal swab sent to lab, EKG being performed at bedside at this time; no emergent SS noted at this time; monitoring equipment in place; bed in low locked position with call light in reach * Nino Ordonez RN - 05/26/2025 11:08 PM EDT Dysphagia screen passed, pt with no issues noted * Nino Ordonez RN - 05/26/2025 11:07 PM EDT MRI questionnaire faxed * Nion Ordonez RN - 05/26/2025 10:03 PM EDT Pt was able to ambulate well with a walker and standby assist to bathroom; pt back in bed at this time; research program coordinator to visit patient shortly * Nino Ordonez RN - 05/26/2025 9:56 PM EDT Pt alert and oriented x 4 at this time; pt with some trouble ambulating due to dizziness since yesterday per pt statement; no additional SS noted at this time; physician paged for admission, attempted to call research program coordinator unsuccessfully - will call again; pt placed in hospital gown, belongings left at bedside documented in this encounter Miscellaneous Notes * Case Management/Social Work - David Curtis RN - 05/28/2025 1:07 PM EDT Continued Stay Note Santy Patient Name: Yung Mendez Today's Date: 05/28/2025 Admit Date: 05/26/2025 Plan: Home Discharge Plan Row Name 05/28/25 1306 Plan Plan Home Patient/Family in Agreement with Plan yes Final Discharge Disposition Code 01 - home or self-care Final Note Plan is home. Family will transport. No CM discharge needs identified. Discharge Codes No documentation. Expected Discharge Date and Time Expected Discharge Date Expected Discharge Time May 28, 2025 David Curtis RN * Case Management/Social Work - David Curtis RN - 05/28/2025 9:14 AM EDT Continued Stay Note Santy Patient Name: Yung Mendez Today's Date: 05/28/2025 Admit Date: 05/26/2025 Plan: Home Discharge Plan Row Name 05/28/25 0914 Plan Plan Home Patient/Family in Agreement with Plan yes Plan Comments Spoke with patient at bedside. Plan is home. PT/OT recs home. CM will continue to follow. Final Discharge Disposition Code 01 - home or self-care Discharge Codes No documentation. Expected Discharge Date and Time Expected Discharge Date Expected Discharge Time May 29, 2025 David Curtis RN * Case Management/Social Work - Fatemeh Rosenberg RN - 05/27/2025 5:25 PM EDT Images from the original note were not included. Discharge Planning Assessment Santy Patient Name: Yung Mendez Today's Date: 05/27/2025 Admit Date: 05/26/2025 Plan: Home Discharge Needs Assessment Row Name 05/27/25 1714 Living Environment People in Home alone Current Living Arrangements home Potentially Unsafe Housing Conditions patient unable to answer;other (see comments) off floor In the past 12 months has the electric, gas, oil, or water company threatened to shut off services in your home? Pt Unable off floor Primary Care Provided by self Provides Primary Care For no one Family Caregiver if Needed child(israel), adult Family Caregiver Names Christine Gilmore (son) [phone] Quality of Family Relationships supportive Able to Return to Prior Arrangements yes Resource/Environmental Concerns Resource/Environmental Concerns none Transportation Concerns none Transportation Needs In the past 12 months, has lack of transportation kept you from medical appointments or from getting medications? no per son In the past 12 months, has lack of transportation kept you from meetings, work, or from getting things needed for daily living? No per son Food Insecurity Within the past 12 months, you worried that your food would run out before you got the money to buymore. Pt Unable off floor Within the past 12 months, the food you bought just didn't last and you didn't have money to get more. Pt Unable off floor Transition Planning Patient/Family Anticipates Transition to home Patient/Family Anticipated Services at Transition immigration case workermanager sales Anticipated family or friend will provide Discharge Needs Assessment Readmission Within the Last 30 Days no previous admission in last 30 days Equipment Currently Used at Home lift device Concerns to be Addressed discharge planning Do you want help finding or keeping work or a job? Patient unable to answer Do you want help with school or training? For example, starting or completing job training or getting a high school diploma, GED or equivalent Patient unable to answer Anticipated Changes Related to Illness none Equipment Needed After Discharge lift device Current Discharge Risk lives alone Discharge Coordination/Progress Since Pt was off the floor for a scan, DURGA spoke with son, Dangelo, to initiate discharge plan. Pt is admitted for CVA. He lives alone in a one story home in [facility]. There are 2 steps at the entrance of the home. Address on file was verified. Prior to admission, Pt ambulated independently and was independent with ADLs. He has a lift chair which is broken. His 2sons, Dangelo and Christine, are available to assist him at home. Son did not know the name of Pt's PCP. [facility] in [place], Pt has only been prescribed medications by automobile and property underwriter, Dr Bogdan Li. He has [employer] Medicare insurance which has Rx coverage. Son was unsure if Pt needs assistance paying for meds. On chart review, it appears Pt was taking ASA, fish oil, and a statin prior to admission. Pt is not current with HH/O2/OPPT. The plan is for Pt to return home at discharge. Familywill provide transportation. CM will continue to follow hospital course and assist with discharge planning as more information becomes available. Discharge Plan Row Name 05/27/25 1724 Plan Plan Home Final Discharge Disposition Code 01 - home or self-care Continued Care and Services - Admitted Since 05/26/2025 No active coordination exists. Expected Discharge Date and Time Expected Discharge Date Expected Discharge Time May 29, 2025 Demographic Summary Row Name 05/27/25 1709 General Information Arrived From home Referral Source emergency department Reason for Consult discharge planning Preferred Language Libyan Contact Information Permission Granted to Share Info With immigration case workerclient solutions manager Information Obtained for immigration case workerclient solutions manager Information Comments Christine Gilmore (son) [phone] Functional Status Row Name 05/27/25 1714 Functional Status Usual Activity Tolerance moderate Current Activity Tolerance moderate Functional Status, IADL Medications independent Meal Preparation independent Housekeeping independent Laundry independent Shopping independent Psychosocial No documentation. Abuse/Neglect No documentation. Legal No documentation. Substance Abuse No documentation. Patient Forms No documentation. Fatemeh Rosenberg RN documented in this encounter Plan of Treatment Upcoming Encounters Date Type Department Care Team (Late st Contact Info) Description 08/09/2025 11:30 AM EST Office Visit [facility] [address] [place] [address] Elicia Balderrama APRN [address] [facility] [address] [address] Scheduled Referrals Name Type Priority Associated Diagnoses Order Schedule Ambulatory Referral to Neurology Outpatient Referral Routine Transient ischemic attack (TIA) Ordered: 05/28/2025 Ambulatory Referral to Physical Therapy for Evaluation & Treatment Outpatient Referral Routine Benign paroxysmal positional vertigo of left ear Ordered: 05/28/2025 documented as of this encounter Procedures Procedure Name Priority Date/Time Associated Diagnosis Comments SCANNED - TELEMETRY 05/28/2025 1 2:[address] CHEST WO CONTRAST DIAGNOSTIC Routine 05/27/2025 4:51 PM EDT MRI BRAIN WO CONTRAST Routine 05/27/2025 1:06 PM EDT POCT GLUCOSE FINGERSTICK Routine 05/27/2025 11:20 AM EDT CBC WITH AUTO DIFFERENTIAL Routine 05/27/2025 11:06 AM EDT MANUAL DIFFERENTIAL STAT 05/27/2025 1 1:06 AM EDT PROTIME-INR Routine 05/27/2025 11:06 AM EDT PHOSPHORUS Routine 05/27/2025 11:06 AM EDT MAGNESIUM Routine 05/27/2025 11:06 AM EDT HEMOGLOBIN A1C Urgent 05/27/2025 11:06 AM EDT LIPID PANEL Urgent 05/27/2025 11:06 AM EDT COMPREHENSIVE METABOLIC PANEL Routine 05/27/2025 11:06 AM EDT ECHO COMPLETE W/ DOPPLER, COLOR FLOW AND CONTRAST Routine 05/27/2025 10:15 AM EDT POCT GLUCOSE FINGERSTICK Routine 05/27/2025 7:10 AM EDT XR CHEST 1 VW Routine 05/27/2025 5:25 AM EDT URINALYSIS W/ CULTURE IF INDICATED STAT 05/27/2025 4:18 AM EDT PROCALCITONIN STAT 05/27/2025 12:20 AM EDT CBC (NO DIFF) STAT 05/27/2025 12:20 AM EDT C-REACTIVE PROTEIN STAT 05/27/2025 12 :20 AM EDT PHOSPHORUS STAT 05/27/2025 12:20 AM EDT MAGNESIUM STAT 05/27/2025 12:20 AM EDT LACTIC ACID, PLASMA STAT 05/27/2025 1 2:20 AM EDT CK STAT 05/27/2025 12:20 AM EDT BASIC METABOLIC PANEL STAT 05/27/2025 12:20 AM EDT ECG 12-LEAD STAT 05/27/2025 12:07 AM EDT RESPIRATORY PANEL PCR W/ COVID-19 (SARS-COV-2), [employer] SWAB IN UTM/VTP, 2 HR TAT Routine 05/27/2025 12:02 AM EDT OSCILLATING POSITIVE EXPIRATORY PRESSURE (OPEP) Routine 05/26/2025 11:08 PM EDT OSCILLATING POSITIVE EXPIRATORY PRESSURE (OPEP) Routine 05/26/2025 11:08 PM EDT CHEST PHYSIOTHERAPY Routine 05/26/2025 1 1:08 PM EDT POCT GLUCOSE FINGERSTICK Routine 05/26/2025 9:[address] OUTSIDE HEAD Routine 05/26/2025 12:[address] OUTSIDE HEAD Routine 05/26/2025 12:[address] OUTSIDE NECK Routine 05/26/2025 12:00 AM EDT documented in this encounter Results * Telemetry Scan (05/28/2025 12:25 PM EDT) [facility] ECG ORDERABLES Final Result * CT Chest Without Contrast Diagnostic (05/27/2025 4:51 PM EDT) Anatomical Region Laterality Modality Chest N/A Computed Tomogra phy 05/27/2025 4:5 6 PM EDT Impressions 05/27/2025 5:01 PM EDT Impression: CT scan of the chest without IV contrast demonstrating mild emphysema. No active disease is seen. Consider low-dose screening CT scan of the chest if the patient meets criteria. Electronically Signed: Malick Lake MD 05/27/2025 5:01 PM EDT Workstation ID: [id number] Narrative 05/27/2025 5:[address] CHEST WO CONTRAST DIAGNOSTIC Date of Exam: 05/27/2025 4:46 PM EDT Indication: smoker, abnormal CXR, rule out nodule or malignancy. Comparison: CXR 05/27/2025 Technique: Axial CT images were obtained of the chest without contrast administration. Reconstructed coronal and sagittal images were also obtained. Automated exposure control and iterative construction methods were used. Findings: Lung window images reveal mild emphysema. Mild, symmetrical nodular apical pleural thickening is evident. Subsegmental atelectasis and/are linear fibrosis is seen at the lung bases. No abnormality is seen at the thoracic inlet. Moderate coronary artery calcifications are evident. Upper abdominal structures have an unremarkable appearance. Degenerative spurring is seen in the thoracic spine. Procedure Note Malick Lake MD - 05/27/2025 CT CHEST WO CONTRAST DIAGNOSTIC Date of Exam: 05/27/2025 4:46 PM EDT Indication: smoker, abnormal CXR, rule out nodule or malignancy. Comparison: CXR 05/27/2025 Technique: Axial CT images were obtained of the chest without contrastadministration. Reconstructed coronal and sagittal images were alsoobtained. Automated exposure control and iterative construction methodswere used. Findings: Lung window images reveal mild emphysema. Mild, symmetrical nodular apicalpleural thickening is evident. Subsegmental atelectasis and/are linearfibrosis is seen at the lung bases. No abnormality is seen at the thoracic inlet. Moderate coronary arterycalcifications are evident. Upper abdominal structures have an unremarkable appearance. Degenerative spurring is seen in the thoracic spine. IMPRESSION: Impression: CT scan of the chest without IV contrast demonstrating mild emphysema. No active disease is seen. Consider low-dose screening CT scan of the chest if the patient meetscriteria. Electronically Signed: Malick Lake MD 05/27/2025 5:01 PM EDT Workstation ID: [id number] Rose Marie Melara DO IM CT ORDERABLES Final Resu lt * MRI Brain Without Contrast (05/27/2025 1:06 PM EDT) Anatomical Region Laterality Modality Head, Neck N/A Magnetic Resonan ce 05/27/2025 1:09 PM EDT Impressions 05/27/2025 1:13 PM EDT Impression: 1.No acute intracranial abnormality. 2.Mild chronic microvascular ischemic changes. Electronically Signed: Flavia Doherty MD 05/27/2025 1:13 PM EDT Workstation ID: [id number] Narrative 05/27/2025 1:13 PM EDT MRI BRAIN WO CONTRAST Date of Exam: 05/27/2025 12:39 PM EDT Indication: Stroke, follow up inability to walk, balance difficulty, trunca ataxia. Comparison: CT head without contrast 05/26/2025 Technique: Routine multiplanar/multisequence sequence images of the brain were obtained without contrast administration. Findings: There is no diffusion restriction to suggest acute infarct. There is no evidence of acute or chronic intracranial hemorrhage. No mass effect or midline shift. No abnormal extra-axial collections. The basal ganglia, brainstem and cerebellum appear within normal limits. Midline structures are intact. Mild scattered subcortical/periventricular white matter hyperintensities are noted. Calvarial and superficial soft tissue signal is within normal limits. Orbits appear unremarkable. There is mild mucosal thickening of the paranasal sinuses. The mastoid air cells are clear. Procedure Note Flavia Doherty MD - 05/27/2025 MRI BRAIN WO CONTRAST Date of Exam: 05/27/2025 12:39 PM EDT Indication: Stroke, follow up inability to walk, balance difficulty, trunca ataxia. Comparison: CT head without contrast 05/26/2025 Technique: Routine multiplanar/multisequence sequence images of the brainwere obtained without contrast administration. Findings: There is no diffusion restriction to suggest acute infarct. There is no evidence of acute or chronic intracranial hemorrhage. No masseffect or midline shift. No abnormal extra-axial collections. The basal ganglia, brainstem and cerebellum appear within normal limits.Midline structures are intact. Mild scattered subcortical/periventricularwhite matter hyperintensities are noted. Calvarial and superficial soft tissue signal is within normal limits.Orbits appear unremarkable. There is mild mucosal thickening of theparanasal sinuses. The mastoid air cells are clear. IMPRESSION: Impression: 1.No acute intracranial abnormality. 2.Mild chronic microvascular ischemic changes. Electronically Signed: Flavia Doherty MD 05/27/2025 1:13 PM EDT Workstation ID: [id number] Nga Delacruz [employer]PA[employer] IMG MRI ORDERABLES Final Res ult * POC Glucose Once (05/27/2025 11:20 AM EDT) Pathologist [facility] Glucose 110 70 - 130 mg/dL 05/27/2025 11:25 AM EDT [facility] Comment:Serial Number: [id number] Blood 05/27/2025 11:2 0 AM EDT 05/27/2025 11:25 AM EDT Rose Marie Melara DO POINT OF CARE TEST ORDERABLE S Final Result [facility]
[address] [place] [address], * (ABNORMAL) Manual Differential (05/27/2025 11:06 AM EDT) Neutrophil % 40.0(L) 42.7 - 76.0 % 05/27/2025 12:18 PM EDT [facility] Lymphocyte % 16.0(L) 19.6 - 45.3 % 05/27/2025 12:18 PM EDT [facility] Monocyte % 0.0(L) 5.0 - 12.0 % 05/27/2025 12:18 PM EDT [facility] Eosinophil % 0.0(L) 0.3 - 6.2 % 05/27/2025 12:18 PM EDT [facility] Basophil % 0.0 0.0 - 1.5 % 05/27/2025 12:18 PM EDT [facility] Atypical Lymphocyte % 44.0(H) 0.0 - 5.0 % 05/27/2025 12:18 PM EDT [facility] Neutrophils Absolute 7.16(H) 1.70 - 7.00 10*3/mm3 05/27/2025 12:18 PM EDT [facility] Lymphocytes Absolute 10.75(H) 0.70 - 3.10 10*3/mm3 05/27/2025 12:18 PM EDT [facility] Monocytes Absolute 0.00(L) 0.10 - 0.90 10*3/mm3 05/27/2025 12:18 PM EDT [facility] Eosinophils Absolute 0.00 0.00 - 0.40 10*3/mm3 05/27/2025 12:18 PM EDT [facility] Basophils Absolute 0.00 0.00 - 0.20 10*3/mm3 05/27/2025 12:18 PM EDT [facility] RBC Morphology Normal Normal 05/27/2025 12:18 PM EDT [facility] WBC Morphology Normal Normal 05/27/2025 12:18 PM EDT [facility] Platelet Morphology Normal Normal 05/27/2025 12:18 PM EDT [facility] Blood Venipuncture / Unknown 05/27/2025 11:06 AM EDT 05/27/2025 11:11 AM EDT us Elvi Sandoval MD LAB BLOOD ORDERABLES Final Re sult [facility]
[address] [place] [address], * Protime-INR (05/27/2025 11:06 AM EDT) Protime 14.4 12.2 - 15.3 Seconds 05/27/2025 11:37 AM EDT [facility] INR 1.06 0.89 - 1.12 05/27/2025 11:37 AM EDT [facility] Blood Venipuncture / Unknown 05/27/2025 11:06 AM EDT 05/27/2025 11:11 AM EDT Elvi Sandoval MD LAB BLOOD ORDERABLES Final Re sult Performing Organization Address City/[facility]/ZIP Co de Phone Number [facility]
[address] [place] [address], * Phosphorus (05/27/2025 11:06 AM EDT) Phosphorus 2.5 2.5 - 4.5 mg/dL 05/27/2025 11:49 AM EDT [facility] Blood Venipuncture / Unknown 05/27/2025 11:06 AM EDT 05/27/2025 11:11 AM EDT Elvi Sandoval MD LAB BLOOD ORDERABLES Final Re sult Performing Organization Address [facility] Co de Phone Number [facility]
[address] [place] [address], * Magnesium (05/27/2025 11:06 AM EDT) Magnesium 2.0 1.6 - 2.4 mg/dL 05/27/2025 11:49 AM EDT [facility] Blood Venipuncture / Unknown 05/27/2025 11:06 AM EDT 05/27/2025 11:11 AM EDT us Elvi Sandoval MD LAB BLOOD ORDERABLES Final Re sult Performing Organization Address City/[facility]/ZIP Co de Phone Number [facility]
[address] [place] [address], * (ABNORMAL) CBC Auto Differential (05/27/2025 11:06 AM EDT) WBC 17.91(H) 3.40 - 10.80 10*3/mm3 05/27/2025 12:18 PM EDT [facility] RBC 4.97 4.14 - 5.80 10*6/mm3 05/27/2025 12:18 PM EDT [facility] Hemoglobin 14.3 13.0 - 17.7 g/dL 05/27/2025 12:18 PM EDT [facility] Hematocrit 43.9 37.5 - 51.0 % 05/27/2025 12:18 PM EDT [facility] MCV 88.3 79.0 - 97.0 fL 05/27/2025 12:18 PM EDT [facility] MCH 28.8 26.6 - 33.0 pg 05/27/2025 12:18 PM EDT [facility] MCHC 32.6 31.5 - 35.7 g/dL 05/27/2025 12:18 PM EDT [facility] RDW 14.3 12.3 - 15.4 % 05/27/2025 12:18 PM EDT [facility] RDW-SD 46.4 37.0 - 54.0 fl 05/27/2025 12:18 PM EDT [facility] MPV 9.4 6.0 - 12.0 fL 05/27/2025 12:18 PM EDT [facility] Platelets 235 140 - 450 10*3/mm3 05/27/2025 12:18 PM EDT [facility] Blood Venipuncture / Unknown 05/27/2025 11:06 AM EDT 05/27/2025 11:11 AM EDT [facility] - 05/27/2025 12:18 PM EDT The previously reported component NRBC is no longer being reported. Previous result was 0.0 /100 WBC (Reference Range: 0.0-0.2 /100 WBC) on 05/27/2025 at 1120 EDT. us Elvi Sandoval MD LAB BLOOD ORDERABLES Final Re sult [facility]
[address] [place] [address], * (ABNORMAL) Comprehensive Metabolic Panel (05/27/2025 11:06 AM EDT) [facility] Glucose 109(H) 65 - 99 mg/dL 05/27/2025 11:49 AM EDT [facility] BUN 17.4 8.0 - 23.0 mg/dL 05/27/2025 11:49 AM EDT [facility] Creatinine 0.88 0.76 - 1.27 mg/dL 05/27/2025 11:49 AM EDT [facility] Sodium 136 136 - 145 mmol/L 05/27/2025 11:49 AM EDT [facility] Potassium 3.9 3.5 - 5.2 mmol/L 05/27/2025 11:49 AM EDT [facility] Chloride 105 98 - 107 mmol/L 05/27/2025 11:49 AM EDT [facility] CO2 22.2 22.0 - 29.0 mmol/L 05/27/2025 11:[facility] Calcium 9.0 8.6 - 10.5 mg/dL 05/27/2025 11:49 AM EDT [facility] Total Protein 6.3 6.0 - 8.5 g/dL 05/27/2025 11:49 AM EDT [facility] Albumin 3.8 3.5 - 5.2 g/dL 05/27/2025 11:49 AM EDT [facility] ALT (SGPT) 12 1 - 41 U/L 05/27/2025 11:49 AM EDT [facility] AST (SGOT) 17 1 - 40 U/L 05/27/2025 11:49 AM EDT [facility] Alkaline Phosphatase 78 39 - 117 U/L 05/27/2025 11:49 AM EDT [facility] Total Bilirubin 0.8 0.0 - 1.2 mg/dL 05/27/2025 11:49 AM EDT [facility] Globulin 2.5 gm/dL 05/27/2025 11:49 AM EDT [facility] Comment:Calculated Result A/G Ratio 1.5 g/dL 05/27/2025 11:49 AM EDT [facility] BUN/Creatinine Ratio 19.8 7.0 - 25.0 05/27/2025 11:49 AM EDT [facility] Anion Gap 8.8 5.0 - 15.0 mmol/L 05/27/2025 11:49 AM EDT [facility] eGFR 83.7 >60.0 mL/min/1.7 3 05/27/2025 11:49 AM T [facility] Blood Venipuncture / Unknown 05/27/2025 11:06 AM EDT 05/27/2025 11:11 AM EDT [facility] - 05/27/2025 11:49 AM EDT GFR Categories in Chronic Kidney Disease (CKD) GFR Category GFR (mL/min/1.73) Interpretation G1 90 or greater Normal or high (1) G2 60-89 Mild decrease (1) G3a 45-59 Mild to moderate decrease G3b 30-44 Moderate to severe decrease G4 15-29 Severe decrease G5 14 or less Kidney failure (1)In the absence of evidence of kidney disease, neither GFR category G1 or G2 fulfill the criteria for CKD. eGFR calculation 2020 CKD-EPI creatinine equation, which does not include race as a factor us Elvi Sandoval MD LAB BLOOD ORDERABLES Final Re sult [facility]
[address] [place] [address], * (ABNORMAL) Lipid Panel (05/27/2025 11:06 AM EDT) Total Cholesterol 106 0 - 200 mg/dL 05/27/2025 11:49 AM EDT [facility] Triglycerides 81 0 - 150 mg/dL 05/27/2025 11:49 AM EDT [facility] HDL Cholesterol 32(L) 40 - 60 mg/dL 05/27/2025 11:49 AM EDT [facility] LDL Cholesterol 58 0 - 100 mg/dL 05/27/2025 11:49 AM EDT [facility] VLDL Cholesterol 16 5 - 40 mg/dL 05/27/2025 11:49 AM EDT [facility] LDL/HDL Ratio 1.81 05/27/2025 11:49 AM EDT [facility] Blood Venipuncture / Unknown 05/27/2025 11:06 AM EDT 05/27/2025 11:11 AM EDT Narrative [facility] - 05/27/2025 11:49 AM EDT Cholesterol Reference Ranges (U.S. Department of Health and Human Services ATP III Classifications) Desirable <200 mg/dL Borderline High 200-239 mg/dL High Risk >240 mg/dL Triglyceride Reference Ranges (U.S. Department of Health and Human Services ATP III Classifications) Normal <150 mg/dL Borderline High 150-199 mg/dL High 200-499 mg/dL Very High >500 mg/dL HDL Reference Ranges (U.S. Department of Health and Human Services ATP III Classifications) Low <40 mg/dl (major risk factor for CHD) High >60 mg/dl ('negative' risk factor for CHD) LDL Reference Ranges (U.S. Department of Health and Human Services ATP III Classifications) Optimal <100 mg/dL Near Optimal 100-129 mg/dL Borderline High 130-159 mg/dL High 160-189 mg/dL Very High >189 mg/dL LDL is calculated using the NIH LDL-C calculation. us Nga Delacruz APRN LAB BLOOD ORDERABLES Final R esult [facility]
[address] [place] [id number], * (ABNORMAL) Hemoglobin A1c (05/27/2025 11:06 AM EDT) Hemoglobin A1C 6.00(H) 4.80 - 5.60 % 05/27/2025 11:43 AM EDT [facility] Blood Venipuncture / Unknown 05/27/2025 11:06 AM EDT 05/27/2025 11:11 AM EDT Narrative [facility] - 05/27/2025 11:43 AM EDT Hemoglobin A1C Ranges: Increased Risk for Diabetes 5.7% to 6.4% Diabetes >= 6.5% Diabetic Goal < 7.0% Nga Delacruz [employer] LAB BLOOD ORDERABLES Final R esult [facility]
[address] [place] [address], * ECHO COMPLETE W/ DOPPLER, COLOR FLOW AND CONTRAST (05/27/2025 10:15 AM EDT) LVIDd 4.5 cm LVIDs 2.9 cm IVSd 1.21 cm LVPWd 1.20 cm FS 35.5 % IVS/LVPW 1.01 cm ESV(cubed) 23.8 ml LV Sys Vol (BSA corrected) 33.7 cm2 EDV(cubed) 88.7 ml LV Griffith Vol (BSA corrected) 70.1 cm2 LV mass(C)d 196.4 grams LVOT area 3.3 cm2 LVOT diam 2.05 cm EDV(MOD-sp4) 155.0 ml ESV(MOD-sp4) 74.5 ml SV(MOD-sp4) 80.5 ml SVi(MOD-SP4) 36.4 ml/m2 SVi (LVOT) 23.9 ml/m2 EF(MOD-sp4) 51.9 % MV E max faisal 68.1 cm/sec MV A max faisal 59.6 cm/sec MV E/A 1.14 IVRT 116.0 ms Med Peak E' Faisal 12.9 cm/sec Lat Peak E' Faisal 12.5 cm/sec Avg E/e' ratio 5.36 SV(LVOT) 52.7 ml RV Base 4.8 cm RV Mid 3.4 cm RV Length 7.2 cm TAPSE (>1.6) 2.34 cm RV S' 8.4 cm/sec LA dimension (2D) 2.8 cm LV V1 max 71.1 cm/sec LV V1 max PG 2.03 mmHg LV V1 mean PG 1.05 mmHg LV V1 VTI 15.9 cm Ao pk faisal 108.6 cm/sec Ao max PG 4.7 mmHg Ao mean PG 2.6 mmHg Ao V2 VTI 24.6 cm PAU(I,D) 2.14 cm2 Dimensionless Index 0.65 (DI) MV max PG 3.3 mmHg MV mean PG 1.28 mmHg MV V2 VTI 38.2 cm MV P1/2t 102.1 msec MVA(P1/2t) 2.15 cm2 MVA(VTI) 1.38 cm2 MV dec slope 257.0 cm/sec2 PA acc time 0.13 sec Ao root diam 3.4 cm Ao root area (BSA corrected) 1.5 cm2 Anatomical Region Laterality Modality Ultrasound Narrative 05/27/2025 11:43 AM EDT Technically difficult study. Left ventricular systolic function is normal. Left ventricular ejection fraction appears to be 51 - 55%. Left ventricular wall thickness is consistent with mild concentric hypertrophy Normal left atrial size and volume noted. Trace mitral valve regurgitation is present. Left Ventricle Left ventricular systolic function is normal. Left ventricular ejection fraction appears to be 51 - 55%. Normal left ventricular cavity size noted. Left ventricular wall thickness is consistent with mild concentric hypertrophy. All left ventricular wall segments contract normally. Left ventricular diastolic function was normal. Right Ventricle The right ventricular cavity is borderline dilated. Normal right ventricular systolic function noted. Left Atrium Normal left atrial size and volume noted. Right Atrium Normal right atrial cavity size noted. Mitral Valve The mitral valve is structurally normal with no significant stenosis present. Trace mitral valve regurgitation is present. Tricuspid Valve The tricuspid valve is structurally normal with no significant regurgitation or significant stenosis present. Aortic Valve The aortic valve is structurally normal with no regurgitation or stenosis present. Pulmonic Valve The pulmonic valve is structurally normal with no regurgitation or significant stenosis present. Pericardium The pericardium is normal. There is no evidence of pericardial effusion. . Greater Vessels No dilation of the aortic root is present. Enhancement Agent Details Verbal consent was obtained from the patient to use Lumason image enhancer in order to optimize the study. The use of Lumason was indicated to improve delineation of the left ventricular endocardial border. 5 mL of Lumason was manually activated. A total of 3 mL of the activated Lumason was administered and the remaining contrast was wasted and discarded. us Nga Delacruz [employer]PA[employer] CV ECHO ORDERABLES Final Res ult * POC Glucose Q6H (05/27/2025 7:10 AM EDT) [facility] Signature Glucose 115 70 - 130 mg/dL 05/27/2025 7:12 AM EDT [facility] Comment:Serial Number: [id number] [place] Comment 1 Follow unit protocol 05/27/2025 7:12 AM EDT [facility] Blood 05/27/2025 7:10 AM EDT 05/27/2025 7:12 AM EDT us Elvi Sandoval MD POINT OF CARE TEST ORDERABLES Final Result [facility]
[address] [place] [address], * XR Chest 1 View (05/27/2025 5:25 AM EDT) Anatomical Region Laterality Modality Body N/A Radiographic Marilu ging 05/27/2025 7:21 AM EDT Impressions 05/27/2025 7:24 AM EDT Impression: 1. No acute cardiopulmonary process. 2. Asymmetric 14 mm nodular density overlying right upper lung. This may relate to osseous spurring associated with the first rib, given history of COPD, chest CT may be helpful to exclude any underlying pulmonary nodule. Electronically Signed: Zen Redman MD 05/27/2025 7:24 AM EDT Workstation ID: [id number] Narrative 05/27/2025 7:24 AM EDT XR CHEST 1 VW Date of Exam: 05/27/2025 2:44 AM EDT Indication: copd, wheezing on exam. Comparison: None available. Findings: The cardiomediastinal silhouette is within normal limits. Lungs are clear. No focal consolidation, pneumothorax, or significant pleural effusion. Osseous structures grossly intact. Asymmetric nodular density overlying the right upper lung which may relate to osteophyte formation associated with the anterior right first rib versus pulmonary nodule. Procedure Note Zen Redman MD - 05/27/2025 XR CHEST 1 VW Date of Exam: 05/27/2025 2:44 AM EDT Indication: copd, wheezing on exam. Comparison: None available. Findings: The cardiomediastinal silhouette is within normal limits. Lungs are clear.No focal consolidation, pneumothorax, or significant pleural effusion.Osseous structures grossly intact. Asymmetric nodular density overlyingthe right upper lung which may relate to osteophyte formation associated with the anterior right firstrib versus pulmonary nodule. IMPRESSION: Impression: 1. No acute cardiopulmonary process. 2. Asymmetric 14 mm nodular density overlying right upper lung. This mayrelate to osseous spurring associated with the first rib, given history ofCOPD, chest CT may be helpful to exclude any underlying pulmonarynodule. Electronically Signed: Zen Redman MD 05/27/2025 7:24 AM EDT Workstation ID: [id number] Elvi Sandoval MD IM DIAGNOSTIC IMAGING ORDERA BLES Final Result * (ABNORMAL) Urinalysis With Culture If Indicated - Urine, Clean Catch (05/27/2025 4:18 AM EDT) Color, UA Yellow Yellow, Straw 05/27/2025 4:45 AM EDT [facility] Appearance, UA Clear Clear 05/27/2025 4:45 AM EDT [facility] pH, UA 7.0 5.0 - 8.0 05/27/2025 4:45 AM EDT [facility] Specific [place], UA >1.030(H) 1.005 - 1.030 05/27/2025 4:[facility] Glucose, UA Negative Negative 05/27/2025 4:45 AM EDT [facility] Ketones, UA Negative Negative 05/27/2025 4:45 AM EDT [facility] Bilirubin, UA Negative Negative 05/27/2025 4:45 AM EDT [facility] Blood, UA Negative Negative 05/27/2025 4:45 AM EDT [facility] Protein, UA Negative Negative 05/27/2025 4:45 AM EDT [facility] Leuk Esterase, UA Negative Negative 05/27/2025 4:45 AM EDT [facility] Nitrite, UA Negative Negative 05/27/2025 4:45 AM EDT [facility] Urobilinogen, UA 1.0 E.U./dL 0.2 - 1.0 E.U./dL 05/27/2025 4:45 AM EDT [facility] Urine Urine specimen obtained by clean catch procedure / Unknown Collection / Unknown 05/27/2025 4:18 AM EDT 05/27/2025 4:30 AM EDT [facility] - 05/27/2025 4:45 AM EDT In absence of clinical symptoms, the presence of pyuria, bacteria, and/or nitrites on the urinalysis result does not correlate with infection. Urine microscopic not indicated. us Elvi Sandoval MD URINE ORDERABLES Final Result [facility]
[address] [place] [address], * C-reactive Protein (05/27/2025 12:20 AM EDT) C-Reactive Protein <0.30 0.00 - 0.50 mg/dL 05/27/2025 1:03 AM EDT [facility] Blood Venipuncture / Unknown 05/27/2025 12:20 AM EDT 05/27/2025 12:32 AM EDT Elvi Sandoval MD LAB BLOOD ORDERABLES Final Re sult Performing Organization Address [facility] de Phone Number [facility]
[address] [place] [address], * Lactic Acid, Plasma (05/27/2025 12:20 AM EDT) Lactate 1.0 0.5 - 2.0 mmol/L 05/27/2025 1:01 AM EDT [facility] Comment:Falsely depressed re sults may occur on samples drawn from patients receiving N-Acetylcysteine (NAC) or Metamizole. Blood Venipuncture / Unknown 05/27/2025 12:20 AM EDT 05/27/2025 12:32 AM EDT Elvi Sandoval MD LAB BLOOD ORDERABLES Final Re sult Performing Organization Address [facility] de Phone Number [facility]
[address] [place] [address], * Procalcitonin (05/27/2025 12:20 AM EDT) Procalcitonin 0.03 0.00 - 0.25 ng/mL 05/27/2025 1:10 AM EDT [facility] Blood Venipuncture / Unknown 05/27/2025 12:20 AM EDT 05/27/2025 12:32 AM EDT Narrative [facility] - 05/27/2025 1:10 AM EDT As a Marker for Sepsis (Non-Neonates): 1. <0.5 ng/mL represents a low risk of severe sepsis and/or septic shock. 2. >2 ng/mL represents a high risk of severe sepsis and/or septic shock. As a Marker for Lower Respiratory Tract Infections that require antibiotic therapy: PCT on Admission Antibiotic Therapy 6-12 Hrs later >0.5 Strongly Recommended >0.25 - <0.5 Recommended 0.1 - 0.25 Discouraged Remeasure/reassess PCT <0.1 Strongly Discouraged Remeasure/reassess PCT As 28 day mortality risk marker: Change in Procalcitonin Result (>80% or <=80%) if Day 0 (or Day 1) and Day 4 values are available. Refer to http://[email or web address]-sdx-[email or web address] Change in PCT <=80% A decrease of PCT levels below or equal to 80% defines a positive change in PCT test result representing a higher risk for 28-day all-cause mortality of patients diagnosed with severe sepsis for septic shock. Change in PCT >80% A decrease of PCT levels of more than 80% defines a negative change in PCT result representing a lower risk for 28-day all-cause mortality of patients diagnosed with severe sepsis or septic shock. Elvi Sandoval MD LAB BLOOD ORDERABLES Final Re sult Performing Organization Address [facility]/ZIP Co de Phone Number [facility]
[address] [place] [address], * Phosphorus (05/27/2025 12:20 AM EDT) Phosphorus 2.9 2.5 - 4.5 mg/dL 05/27/2025 1:03 AM EDT [facility] Blood Venipuncture / Unknown 05/27/2025 12:20 AM EDT 05/27/2025 12:32 AM EDT Elvi Sandoval MD LAB BLOOD ORDERABLES Final Re sult Performing Organization Address [facility] Co de Phone Number [facility]
[address] [place] [address], * CK (05/27/2025 12:20 AM EDT) Creatine Kinase 76 20 - 200 U/L 05/27/2025 1:03 AM EDT [facility] Blood Venipuncture / Unknown 05/27/2025 12:20 AM EDT 05/27/2025 12:32 AM EDT us Elvi Sandoval MD LAB BLOOD ORDERABLES Final Re sult Performing Organization Address [facility] Co de Phone Number [facility]
[address] [place] [address], * Magnesium (05/27/2025 12:20 AM EDT) Magnesium 2.0 1.6 - 2.4 mg/dL 05/27/2025 1:03 AM EDT [facility] Blood Venipuncture / Unknown 05/27/2025 12:20 AM EDT 05/27/2025 12:32 AM EDT Elvi Sandoval MD LAB BLOOD ORDERABLES Final Re sult Performing Organization Address [facility] de Phone Number [facility]
[address] [place] [address], * (ABNORMAL) Basic Metabolic Panel (05/27/2025 12:20 AM EDT) Glucose 112(H) 65 - 99 mg/dL 05/27/2025 1:03 AM EDT [facility] BUN 19.8 8.0 - 23.0 mg/dL 05/27/2025 1:03 AM EDT [facility] Creatinine 0.96 0.76 - 1.27 mg/dL 05/27/2025 1:03 AM EDT [facility] Sodium 141 136 - 145 mmol/L 05/27/2025 1:03 AM EDT [facility] Potassium 4.3 3.5 - 5.2 mmol/L 05/27/2025 1:03 AM EDT [facility] Comment:Slight hemolysis det ected by analyzer. Result may be falsely elevated. Chloride 106 98 - 107 mmol/L 05/27/2025 1:03 AM EDT [facility] CO2 26.0 22.0 - 29.0 mmol/L 05/27/2025 1:03 AM EDT [facility] Calcium 9.0 8.6 - 10.5 mg/dL 05/27/2025 1:03 AM EDT [facility] BUN/Creatinine Ratio 20.6 7.0 - 25.0 05/27/2025 1:03 AM EDT [facility] Anion Gap 9.0 5.0 - 15.0 mmol/L 05/27/2025 1:03 AM EDT [facility] eGFR 77.0 >60.0 mL/min/1.7 3 05/27/2025 1:03 AM EDT [facility] Blood Venipuncture / Unknown 05/27/2025 12:20 AM EDT 05/27/2025 12:32 AM EDT Narrative [facility] - 05/27/2025 1:03 AM EDT GFR Categories in Chronic Kidney Disease (CKD) GFR Category GFR (mL/min/1.73) Interpretation G1 90 or greater Normal or high (1) G2 60-89 Mild decrease (1) G3a 45-59 Mild to moderate decrease G3b 30-44 Moderate to severe decrease G4 15-29 Severe decrease G5 14 or less Kidney failure (1)In the absence of evidence of kidney disease, neither GFR category G1 or G2 fulfill the criteria for CKD. eGFR calculation 2020 CKD-EPI creatinine equation, which does not include race as a factor us Elvi Sandoval MD LAB BLOOD ORDERABLES Final Re sult [facility]
[address] [place] [address], * (ABNORMAL) CBC (No Diff) (05/27/2025 12:20 AM EDT) WBC 19.36(H) 3.40 - 10.80 10*3/mm3 05/27/2025 12:51 AM EDT [facility] RBC 4.92 4.14 - 5.80 10*6/mm3 05/27/2025 12:51 AM EDT [facility] Hemoglobin 14.3 13.0 - 17.7 g/dL 05/27/2025 12:51 AM EDT [facility] Hematocrit 44.2 37.5 - 51.0 % 05/27/2025 12:51 AM EDT [facility] MCV 89.8 79.0 - 97.0 fL 05/27/2025 12:51 AM EDT [facility] MCH 29.1 26.6 - 33.0 pg 05/27/2025 12:51 AM EDT [facility] MCHC 32.4 31.5 - 35.7 g/dL 05/27/2025 12:51 AM EDT [facility] RDW 14.4 12.3 - 15.4 % 05/27/2025 12:51 AM EDT [facility] RDW-SD 47.2 37.0 - 54.0 fl 05/27/2025 12:51 AM EDT [facility] MPV 9.6 6.0 - 12.0 fL 05/27/2025 12:51 AM EDT [facility] Platelets 239 140 - 450 10*3/mm3 05/27/2025 12:51 AM EDT [facility] Blood Venipuncture / Unknown 05/27/2025 12:20 AM EDT 05/27/2025 12:49 AM EDT Elvi Sandoval MD LAB BLOOD ORDERABLES Final Re sult [facility]
[address] [place] [address], * ECG 12 Lead QT Measurement (05/27/2025 12:07 AM EDT) [facility] QT Interval 470 ms ECG QTC Interval 453 ms ECG 05/27/2025 12:0 7 AM EDT 05/27/2025 11:12 AM EDT Narrative ECG - 05/27/2025 11:12 AM EDT Test Reason : QT Measurement Blood Pressure : */* mmHG Vent. Rate : 56 BPM Atrial Rate : 56 BPM P-R Int : 166 ms QRS Dur : 96 ms QT Int : 470 ms P-R-T Axes : 75 20 27 degrees QTcB Int : 453 ms Sinus bradycardia Otherwise normal ECG No previous ECGs available Confirmed by RHONDA MOTA ([id number]) on 05/27/2025 11:12:49 AM Referred By: Confirmed By: RHONDA MOTA Procedure Note Rhonda Mota MD - 05/27/2025 Test Reason : QT Measurement Blood Pressure : */* mmHG Vent. Rate : 56 BPM Atrial Rate : 56 BPM P-R Int : 166 ms QRS Dur : 96 ms QT Int : 470 ms P-R-T Axes : 75 20 27 degrees QTcB Int : 453 ms Sinus bradycardia Otherwise normal ECG No previous ECGs available Confirmed by RHONDA MOTA ([id number]) on 05/27/2025 11:12:49 AM Referred By: Confirmed By: RHONDA MOTA us Elvi Sandoval MD ECG ORDERABLES Final Result ECG * Respiratory Panel PCR w/COVID-19(SARS-CoV-2) NEFTALY/ABELARDO/TOR/PAD/COR/QUIN In-House, [employer] Swab in UTM/VTM, 2 HR TAT - Swab, Nasopharynx (05/27/2025 12:02 AM EDT) ADENOVIRUS, PCR Not Detected Not Detected BIOFIRE TOR 05/27/2025 1:02 AM EDT [facility] Coronavirus 229E Not Detected Not Detected BIOFIRE TOR 05/27/2025 1:02 AM EDT [facility] Coronavirus HKU1 Not Detected Not Detected BIOFIRE TOR 05/27/2025 1:02 AM EDT [facility] Coronavirus NL63 Not Detected Not Detected BIOFIRE TOR [facility] Coronavirus OC43 Not Detected Not Detected BIOFIRE TORCH 05/27/2025 1:02 AM EDT [facility] COVID19 Not Detected Not Detected - Ref. Range BIOFIRE TORCH 05/27/2025 1:02 AM EDT [facility] Human Metapneumovirus Not Detected Not Detected BIOFIRE TORCH 05/27/2025 1:02 AM EDT [facility] Human Rhinovirus/Enterov irus Not Detected Not Detected BIOFIRE TOR 05/27/2025 1:02 AM EDT [facility] Influenza A PCR Not Detected Not Detected BIOFIRE TOR 05/27/2025 1:02 AM EDT [facility] Influenza B PCR Not Detected Not Detected BIOFIRE TOR 05/27/2025 1:02 AM EDT [facility] Parainfluenza Virus 1 Not Detected Not Detected BIOFIRE TOR 05/27/2025 1:02 AM EDT [facility] Parainfluenza Virus 2 Not Detected Not Detected BIOFIRE TOR 05/27/2025 1:02 AM EDT [facility] Parainfluenza Virus 3 Not Detected Not Detected BIOFIRE TOR 05/27/2025 1:02 AM EDT [facility] Parainfluenza Virus 4 Not Detected Not Detected BIOFIRE TOR 05/27/2025 1:02 AM EDT [facility] RSV, PCR Not Detected Not Detected BIOFIRE TOR 05/27/2025 1:02 AM EDT [facility] Bordetella pertussis pcr Not Detected Not Detected BIOFIRE TOR 05/27/2025 1:02 AM EDT [facility] Bordetella parapertussis PCR Not Detected Not Detected BIOFIRE TORCH 05/27/2025 1:02 AM EDT [facility] Chlamydophila pneumoniae PCR Not Detected Not Detected BIOFIRE TORCH 05/27/2025 1:02 AM EDT [facility] Mycoplasma pneumo by PCR Not Detected Not Detected BIOFIRE TOR 05/27/2025 1:02 AM EDT [facility] Swab Nasopharyngeal structure / Unknown Collection / Unknown 05/27/2025 12:02 AM EDT 05/27/2025 12:09 AM EDT Narrative [facility] - 05/27/2025 1:02 AM EDT In the setting of a positive respiratory panel with a viral infection PLUS a negative procalcitonin without other underlying concern for bacterial infection, consider observing off antibiotics or discontinuation of antibiotics and continue supportive care. If the respiratory panel is positive for atypical bacterial infection (Bordetella pertussis, Chlamydophila pneumoniae, or Mycoplasma pneumoniae), consider antibiotic de-escalation to target atypical bacterial infection. Elvi Sandoval MD MICROBIOLOGY - GENERAL ORDERA BLES Final Result Performing Organization Address City/[facility]/ZIP Co de Phone Number [facility]
[address] [place] [address], * POC Glucose Once (05/26/2025 9:56 PM EDT) [facility] Glucose 127 70 - 130 mg/dL 05/26/2025 9:57 PM EDT [facility] Comment:Serial Number: [id number]: [id number] Blood 05/26/2025 9:56 PM EDT 05/26/2025 9:57 PM EDT Chris Gan III, DO POINT OF CARE FUAD T ORDERABLES Final Result [facility]
[address] [place] [address], [place] [phone] * CT Outside Head (05/26/2025 12:10 AM EDT) Narrative SYSTEMGENERATED, DOCUMENTATION - 05/27/2025 3:19 AM EDT This procedure was auto-finalized with no dictation required. us [employer] IMG CT ORDERABLES Final Re sult * CT Outside Head (05/26/2025 12:05 AM EDT) Narrative SYSTEMGENERATED, DOCUMENTATION - 05/27/2025 3:18 AM EDT This procedure was auto-finalized with no dictation required. us [employer] IMG CT ORDERABLES Final Re sult * CT Outside Neck (05/26/2025 12:00 AM EDT) Narrative SYSTEMGENERATED, DOCUMENTATION - 05/27/2025 3:18 AM EDT This procedure was auto-finalized with no dictation required. us [employer] IMG CT ORDERABLES Final Re sult documented in this encounter Visit Diagnoses Diagnosis Stroke- Primary Unspecified cerebral artery occlusion with cerebral infarction Cerebrovascular accident (CVA), unspecified mechanism Transient ischemic attack (TIA) Unspecified transient cerebral ischemia Benign paroxysmal positional vertigo of left ear Chronic respiratory failure COPD (chronic obstructive pulmonary disease) Chronic airway obstruction, not elsewhere classified Tobacco abuse Tobacco use disorder Chronic atrial fibrillation Atrial fibrillation Paroxysmal atrial fibrillation Atrial fibrillation ALIDA (acute kidney injury) Leukocytosis Leukocytosis, unspecified documented in this encounter Admitting Diagnoses Diagnosis Stroke Unspecified cerebral artery occlusion with cerebral infarction documented in this encounter Administered Medications Inactive Administered Medications - up to 3 most recent administrations Medication Order MAR Action Action Date Dose Rate Site acetaminophen (TYLENOL) 160 MG/5ML oral solution 650 mg 650 mg, Oral, Every 4 Hours PRN, Mild Pain, Starting on 05/26/25 at 2227, If given for fever, use fever parameter: fever greater than 100.4 F Based on patient request - if ordered for moderate or severe pain, provider allows for administration of a medication prescribed for a lower pain scale. Do not exceed 4 grams of acetaminophen in a 24 hr period. Max dose of 2gm for AST/ALT greater than 120 units/L. If given for pain, use the following pain scale: Mild Pain = Pain Score of 1-3, CPOT 1-2 Moderate Pain = Pain Score of 4-6, CPOT 3-4 Severe Pain = Pain Score of 7-10, CPOT 5-8 acetaminophen (TYLENOL) suppository 650 mg 650 mg, Rectal, Every 4 Hours PRN, Mild Pain, Starting on 05/26/25 at 2227, If given for fever, use fever parameter: fever greater than 100.4 F Based on patient request - if ordered for moderate or severe pain, provider allows for administration of a medication prescribed for a lower pain scale. Do not exceed 4 grams of acetaminophen in a 24 hr period. Max dose of 2gm for AST/ALT greater than 120 units/L. If given for pain, use the following pain scale: Mild Pain = Pain Score of 1-3, CPOT 1-2 Moderate Pain = Pain Score of 4-6, CPOT 3-4 Severe Pain = Pain Score of 7-10, CPOT 5-8 acetaminophen (TYLENOL) tablet 650 mg 650 mg, Oral, Every 4 Hours PRN, Mild Pain, Starting on 05/26/25 at 2227, If given for fever, use fever parameter: fever greater than 100.4 F Based on patient request - if ordered for moderate or severe pain, provider allows for administration of a medication prescribed for a lower pain scale. Do not exceed 4 grams of acetaminophen in a 24 hr period. Max dose of 2gm for AST/ALT greater than 120 units/L. If given for pain, use the following pain scale: Mild Pain = Pain Score of 1-3, CPOT 1-2 Moderate Pain = Pain Score of 4-6, CPOT 3-4 Severe Pain = Pain Score of 7-10, CPOT 5-8 albuterol (PROVENTIL) nebulizer solution 0.083% 2.5 mg/3mL 2.5 mg, Nebulization, Every 4 Hours PRN, Wheezing, Shortness of Air, Starting on Tue05/26/25 at 2308, Include Respiratory Treatment Education aluminum-magnesium hydroxide-simethicone (MAALOX MAX) 400-400-40 MG/5ML suspension 15 mL 15 mL, Oral, Every 6 Hours PRN, Heartburn, Starting on 05/26/25 at 2228, Maximum 60 mL in 24 hours. arformoterol (BROVANA) nebulizer solution 15 mcg 15 mcg, Nebulization, 2 Times Daily - RT, First dose on 05/27/25 at 0000, Include Respiratory Treatment Education Keep refrigerated., Indications: Chronic Obstructive Pulmonary DiseaseIndications:Chronic Obstructive Pulmonary Disease Given 05/28/2025 7:21 AM EDT 15 mcg Given 05/27/2025 9:42 PM EDT 15 mcg aspirin chewable tablet 81 mg 81 mg, Oral, Daily, First dose on Tue05/27/25 at 0900, If patient fails dysphagia, PA option MUST be given. Do not exceed 4 grams of aspirin in a 24 hr period. If given for pain, use the following pain scale: Mild Pain = Pain Score of 1-3, CPOT 1-2 Moderate Pain = Pain Score of 4-6, CPOT 3-4 Severe Pain = Pain Score of 7-10, CPOT 5-8 Given 05/28/2025 8:20 AM EDT 81 mg Given 05/27/2025 9:16 AM EDT 81 mg aspirin suppository 300 mg 300 mg, Rectal, Daily, First dose on Tue05/27/25 at 0900, If patient fails dysphagia, PA option MUST be given. Do not exceed 4 grams of aspirin in a 24 hr period. If given for pain, use the following pain scale: Mild Pain = Pain Score of 1-3, CPOT 1-2 Moderate Pain = Pain Score of 4-6, CPOT 3-4 Severe Pain = Pain Score of 7-10, CPOT 5-8 atorvastatin (LIPITOR) tablet 20 mg 20 mg, Oral, Nightly, First dose (after last modification) on Tue05/27/25 at 2100, Avoid grapefruit juice. Given 05/27/2025 8:44 PM EDT 20 mg atorvastatin (LIPITOR) tablet 80 mg 80 mg, Oral, Nightly, First dose on Tue05/26/25 at 2300, Avoid grapefruit juice. Given 05/26/2025 10:58 PM EDT 80 mg benzonatate (TESSALON) capsule 200 mg 200 mg, Oral, 3 Times Daily PRN, Cough, Starting on Tue05/26/25 at 2308, Do not crush or chew the capsules or tablets. The drug may not work as designed if the capsule or tablet is crushed or chewed. Swallow whole. Swallow whole. Do not crush, chew, or open capsule. bisacodyl (DULCOLAX) EC tablet 5 mg 5 mg, Oral, Daily PRN, Constipation, Use if polyethylene glycol is ineffective, Starting on Tue05/26/25 at 2227, Use if no bowel movement after 12 hours. Swallow whole. Do not crush, split, or chew tablet. bisacodyl (DULCOLAX) suppository 10 mg 10 mg, Rectal, Daily PRN, Constipation, Use if bisacodyl oral is ineffective, Starting on Tue05/26/25 at 2227, Use if no bowel movement after 12 hours. Hold for diarrhea budesonide (PULMICORT) nebulizer solution 0.5 mg 0.5 mg, Nebulization, 2 Times Daily - RT, First dose on Tue05/27/25 at 0000, Include Respiratory Treatment Education Do not shake. Protect from light., Indications: Chronic Obstructive Pulmonary DiseaseIndications:Chronic Obstructive Pulmonary Disease Given 05/28/2025 7:25 AM EDT 0.5 mg Given 05/27/2025 9:42 PM EDT 0.5 mg Calcium Replacement - Follow Nurse / BPA Driven Protocol Open Order & Select [facility] Electrolyte Replacement Protocol Algorithm to View Details clopidogrel (PLAVIX) tablet 75 mg 75 mg, Oral, Daily, First dose on Tue05/27/25 at 0900 Given 05/28/2025 8:20 AM EDT 75 mg Given 05/27/2025 9:16 AM EDT 75 mg famotidine (PEPCID) tablet 40 mg 40 mg, Oral, Daily, First dose on Tue05/27/25 at 0900 Given 05/28/2025 8:20 AM EDT 40 mg Given 05/27/2025 9:16 AM EDT 40 mg ipratropium-albuterol (DUO-NEB) nebulizer solution 3 mL 3 mL, Nebulization, Once, On Tue05/27/25 at 0000, For 1 dose, Include Respiratory Treatment Education Given 05/27/2025 12:32 AM EDT 3 mL Magnesium Cardiology Dose Replacement - Follow Nurse / BPA Driven Protocol Open Order & Select [facility] Electrolyte Replacement Protocol Algorithm to View Details morphine injection 1 mg 1 mg, Intravenous, Every 4 Hours PRN, Moderate Pain, Starting on Tue05/26/25 at 2227, For 5 days, Based on patient request - if ordered for moderate or severe pain, provider allows for administration of a medication prescribed for a lower pain scale. If given for pain, use the following pain scale: Mild Pain = Pain Score of 1-3, CPOT 1-2 Moderate Pain = Pain Score of 4-6, CPOT 3-4 Severe Pain = Pain Score of 7-10, CPOT 5-8 naloxone (NARCAN) injection 0.4 mg 0.4 mg, Intravenous, Every 5 Minutes PRN, Respiratory Depression, Starting on Tue05/26/25 at 2227, If respiratory rate is less than 8 breaths/minute or patient is difficult to arouse stop any narcotics and contact physician. Administer slow IV push. Repeat as ordered until patient's respiratory rate is greater than 12 breaths/minute. nicotine (NICODERM CQ) 21 MG/24HR patch 1 patch 1 patch, Transdermal, Administer over 24 Hours, Every 24 Hours Scheduled, First dose on Tue05/27/25 at 0900, Apply to clean, dry, nonhairy area of skin (typically upper arm or shoulder) Dispose of nicotine replacement therapies and their wrappers in non-hazardous pharmaceutical waste or in regular trash. nitroglycerin (NITROSTAT) SL tablet 0.4 mg 0.4 mg, Sublingual, Every 5 Minutes PRN, Chest Pain, Starting on Tue05/26/25 at 2226, If Pain Unrelieved After 3 Doses Notify MD May administer up to 3 doses per episode. Hold if SBP less than 100. ondansetron (ZOFRAN) injection 4 mg 4 mg, Intravenous, Every 6 Hours PRN, Nausea, Vomiting, Starting on Tue05/26/25 at 2228, If BOTH ondansetron (ZOFRAN) and promethazine (PHENERGAN) are ordered use ondansetron first and THEN promethazine IF ondansetron is ineffective. Phosphorus Replacement - Follow Nurse / BPA Driven Protocol Open Order & Select [facility] Electrolyte Replacement Protocol Algorithm to View Details polyethylene glycol (MIRALAX) packet 17 g 17 g, Oral, Daily PRN, Constipation, Use if senna-docusate is ineffective, Starting on Tue05/26/25 at 2227, Use if no bowel movement after 12 hours. Mix in 6-8 ounces of water. Use 4-8 ounces of water, tea, or juice for each 17 gram dose. Potassium Replacement - Follow Nurse / BPA Driven Protocol Open Order & Select [facility] Electrolyte Replacement Protocol Algorithm to View Details revefenacin (YUPELRI) nebulizer solution 175 mcg 175 mcg, Nebulization, Daily - RT, First dose on Tue05/27/25 at 0930, Include Respiratory Treatment Education, Indications: Chronic Obstructive Pulmonary DiseaseIndications:Chronic Obstructive Pulmonary Disease Given 05/28/2025 7:20 AM EDT 175 mcg sennosides-docusate (PERICOLACE) 8.6-50 MG per tablet 2 tablet 2 tablet, Oral, 2 Times Daily PRN, Constipation, Starting on Tue05/26/25 at 2227, Start bowel management regimen if patient has not had a bowel movement after 12 hours. sodium chloride 0.9 % flush 10 mL 10 mL, Intravenous, Every 12 Hours Scheduled, First dose on Tue05/26/25 at 2300 Given 05/26/2025 11:01 PM EDT 10 mL sodium chloride 0.9 % flush 10 mL 10 mL, Intravenous, As Needed, Line Care, Starting on Tue05/26/25 at 2208 sodium chloride 0.9 % flush 10 mL 10 mL, Intravenous, Every 12 Hours Scheduled, First dose on Tue05/26/25 at 2315 Given 05/26/2025 11:01 PM EDT 10 mL sodium chloride 0.9 % flush 10 mL 10 mL, Intravenous, As Needed, Line Care, Starting on Tue05/26/25 at 2225 Given 05/26/2025 10:58 PM EDT 10 mL sodium chloride 0.9 % infusion 60 mL/hr, Intravenous, Continuous, Starting on Tue05/27/25 at 0015, For 10 hours New Bag 05/26/2025 11:55 PM EDT 60 mL/hr 60 mL/hr Sulfur Hexafluoride Microsph (LUMASON) 60.7-25 MG IV reconstituted suspension reconstituted suspension 3 mL 3 mL, Intravenous, Once in Imaging, On Tue05/27/25 at 1115, For 1 dose Given 05/27/2025 10:16 AM EDT 3 mL documented in this encounter Active and Recently Administered Medications Times are shown in EDT. Scheduled Medication Order 05/26/2025 05/27/2025 05/28/2025 arformoterol (BROVANA) nebulizer solution 15 mcg(Linked Group 1) 15 mcg, Nebulization, 2 Times Daily - RT, First dose on Tue05/27/25 at 0000, Include Respiratory Treatment Education Keep refrigerated., Indications: Chronic Obstructive Pulmonary Disease 2323 (Canceled Entry - Provider: Wilmer Rock) 1033 (Not Given - Provider: Stella Salcedo, CHAITANYA - Reason: Patient not available)2141 (Given - Provider: Fatuma Conde, CHAITANYA) 0721 (Given - Provider: José Luis Rae, CHAITANYA)0930 (Canceled Entry - Provider: José Luis Rae, CHAITANYA) aspirin chewable tablet 81 mg(Linked Group 2) 81 mg, Oral, Daily, First dose on Tue05/27/25 at 0900, If patient fails dysphagia, PA option MUST be given. Do not exceed 4 grams of aspirin in a 24 hr period. If given for pain, use the following pain scale: Mild Pain = Pain Score of 1-3, CPOT 1-2 Moderate Pain = Pain Score of 4-6, CPOT 3-4 Severe Pain = Pain Score of 7-10, CPOT 5-8 0916 (Given - Provider: Enid Travis RN) 0820 (Given - Provider: Enid Travis RN) aspirin suppository 300 mg(Linked Group 2) 300 mg, Rectal, Daily, First dose on Tue05/27/25 at 0900, If patient fails dysphagia, PA option MUST be given. Do not exceed 4 grams of aspirin in a 24 hr period. If given for pain, use the following pain scale: Mild Pain = Pain Score of 1-3, CPOT 1-2 Moderate Pain = Pain Score of 4-6, CPOT 3-4 Severe Pain = Pain Score of 7-10, CPOT 5-8 0916 (Not Given: See Alt - Provider: Enid Travis RN) 0820 (Not Given: See Alt - Provider: Enid Travis RN) atorvastatin (LIPITOR) tablet 20 mg 20 mg, Oral, Nightly, First dose (after last modification) on Tue05/27/25 at 2100, Avoid grapefruit juice. 2043 (Given - Provider: Nino Ordonez RN) atorvastatin (LIPITOR) tablet 80 mg (CANCELED) 80 mg, Oral, Nightly, First dose on Tue05/26/25 at 2300, Avoid grapefruit juice. 2257 (Given - Provider: Nino Ordonez RN) budesonide (PULMICORT) nebulizer solution 0.5 mg(Linked Group 1) 0.5 mg, Nebulization, 2 Times Daily - RT, First dose on Tue05/27/25 at 0000, Include Respiratory Treatment Education Do not shake. Protect from light., Indications: Chronic Obstructive Pulmonary Disease 5 (Canceled Entry - Provider: Wilmer Rock) 1033 (Not Given - Provider: Stella Salcedo, HYDRAULIC TECHNICIAN - Reason: Patient not available)214 (Given - Provider: Fatuma Conde, CHAITANYA) 0725 (Given - Provider: José Luis Rae RRT)0930 (Canceled Entry - Provider: José Luis Rae RRT) clopidogrel (PLAVIX) tablet 75 mg 75 mg, Oral, Daily, First dose on Tue05/27/25 at 0900 0916 (Given - Provider: Enid Travis RN) 0820 (Given - Provider: Enid Travis RN) famotidine (PEPCID) tablet 40 mg 40 mg, Oral, Daily, First dose on Tue05/27/25 at 0900 0916 (Given - Provider: Enid Travis RN) 0820 (Given - Provider: Enid Travis RN) ipratropium-albuterol (DUO-NEB) nebulizer solution 3 mL (COMPLETED) 3 mL, Nebulization, Once, On Tue05/27/25 at 0000, For 1 dose, Include Respiratory Treatment Education 0032 (Given - Provider: Mir Stockton, CHAITANYA) nicotine (NICODERM CQ) 21 MG/24HR patch 1 patch 1 patch, Transdermal, Administer over 24 Hours, Every 24 Hours Scheduled, First dose on Tue05/27/25 at 0900, Apply to clean, dry, nonhairy area of skin (typically upper arm or shoulder) Dispose of nicotine replacement therapies and their wrappers in non-hazardous pharmaceutical waste or in regular trash. 0916 (Not Given - Provider: Enid Travis RN - Reason: Patient/family refused) 0822 (Not Given - Provider: Enid Travis RN - Reason: Patient/family refused) revefenacin (YUPELRI) nebulizer solution 175 mcg(Linked Group 1) 175 mcg, Nebulization, Daily - RT, First dose on Tue05/27/25 at 0930, Include Respiratory Treatment Education, Indications: Chronic Obstructive Pulmonary Disease 1033 (Not Given - Provider: Stella Salcedo, CHAITANYA - Reason: Patient not available) 0720 (Given - Provider: José Luis Rae, CHAITANYA)0930 (Canceled Entry - Provider: José Luis Rae RRT) sodium chloride 0.9 % flush 10 mL (CANCELED) 10 mL, Intravenous, Every 12 Hours Scheduled, First dose on 05/26/25 at 2300 2301 (Given - Provider: Nino Ordonez RN) sodium chloride 0.9 % flush 10 mL (CANCELED) 10 mL, Intravenous, Every 12 Hours Scheduled, First dose on 05/26/25 at 2315 2301 (Given - Provider: Nino Ordonez RN) Sulfur Hexafluoride Microsph (LUMASON) 60.7-25 MG IV reconstituted suspension reconstituted suspension 3 mL (COMPLETED) 3 mL, Intravenous, Once in Imaging, On Tue05/27/25 at 1115, For 1 dose 1016 (Given - Provider: Alex Caba SHYAM) Continuous Medication Order 05/26/2025 05/27/2025 05/28/2025 sodium chloride 0.9 % infusion () 60 mL/hr, Intravenous, Continuous, Starting on Tue05/27/25 at 0015, For 10 hours 2355 (New Bag - Provider: Nino Ordonez RN) 0918 (Stopped - Provider: Enid Travis RN - Comment: [Order ends at this time. Document the following action when infusion is complete: Stopped]) PRN Medication Order 05/26/2025 05/27/2025 05/28/2025 acetaminophen (TYLENOL) 160 MG/5ML oral solution 650 mg(Linked Group 3) 650 mg, Oral, Every 4 Hours PRN, Mild Pain, Starting on 05/26/25 at 2227, If given for fever, use fever parameter: fever greater than 100.4 F Based on patient request - if ordered for moderate or severe pain, provider allows for administration of a medication prescribed for a lower pain scale. Do not exceed 4 grams of acetaminophen in a 24 hr period. Max dose of 2gm for AST/ALT greater than 120 units/L. If given for pain, use the following pain scale: Mild Pain = Pain Score of 1-3, CPOT 1-2 Moderate Pain = Pain Score of 4-6, CPOT 3-4 Severe Pain = Pain Score of 7-10, CPOT 5-8 acetaminophen (TYLENOL) suppository 650 mg(Linked Group 3) 650 mg, Rectal, Every 4 Hours PRN, Mild Pain, Starting on 05/26/25 at 2227, If given for fever, use fever parameter: fever greater than 100.4 F Based on patient request - if ordered for moderate or severe pain, provider allows for administration of a medication prescribed for a lower pain scale. Do not exceed 4 grams of acetaminophen in a 24 hr period. Max dose of 2gm for AST/ALT greater than 120 units/L. If given for pain, use the following pain scale: Mild Pain = Pain Score of 1-3, CPOT 1-2 Moderate Pain = Pain Score of 4-6, CPOT 3-4 Severe Pain = Pain Score of 7-10, CPOT 5-8 acetaminophen (TYLENOL) tablet 650 mg(Linked Group 3) 650 mg, Oral, Every 4 Hours PRN, Mild Pain, Starting on 05/26/25 at 2227, If given for fever, use fever parameter: fever greater than 100.4 F Based on patient request - if ordered for moderate or severe pain, provider allows for administration of a medication prescribed for a lower pain scale. Do not exceed 4 grams of acetaminophen in a 24 hr period. Max dose of 2gm for AST/ALT greater than 120 units/L. If given for pain, use the following pain scale: Mild Pain = Pain Score of 1-3, CPOT 1-2 Moderate Pain = Pain Score of 4-6, CPOT 3-4 Severe Pain = Pain Score of 7-10, CPOT 5-8 albuterol (PROVENTIL) nebulizer solution 0.083% 2.5 mg/3mL 2.5 mg, Nebulization, Every 4 Hours PRN, Wheezing, Shortness of Air, Starting on 05/26/25 at 2308, Include Respiratory Treatment Education aluminum-magnesium hydroxide-simethicone (MAALOX MAX) 400-400-40 MG/5ML suspension 15 mL 15 mL, Oral, Every 6 Hours PRN, Heartburn, Starting on 05/26/25 at 2228, Maximum 60 mL in 24 hours. benzonatate (TESSALON) capsule 200 mg 200 mg, Oral, 3 Times Daily PRN, Cough, Starting on Sun 25 at 2308, Do not crush or chew the capsules or tablets. The drug may not work as designed if the capsule or tablet is crushed or chewed. Swallow whole. Swallow whole. Do not crush, chew, or open capsule. bisacodyl (DULCOLAX) EC tablet 5 mg(Linked Group 4) 5 mg, Oral, Daily PRN, Constipation, Use if polyethylene glycol is ineffective, Starting on Tue05/26/25 at 2227, Use if no bowel movement after 12 hours. Swallow whole. Do not crush, split, or chew tablet. bisacodyl (DULCOLAX) suppository 10 mg(Linked Group 4) 10 mg, Rectal, Daily PRN, Constipation, Use if bisacodyl oral is ineffective, Starting on Tue05/26/25 at 2227, Use if no bowel movement after 12 hours. Hold for diarrhea Calcium Replacement - Follow Nurse / BPA Driven Protocol Open Order & Select S Electrolyte Replacement Protocol Algorithm to View Details Magnesium Cardiology Dose Replacement - Follow Nurse / BPA Driven Protocol Open Order & Select [facility] Electrolyte Replacement Protocol Algorithm to View Details morphine injection 1 mg(Linked Group 5) 1 mg, Intravenous, Every 4 Hours PRN, Moderate Pain, Starting on Tue05/26/25 at 2227, For 5 days, Based on patient request - if ordered for moderate or severe pain, provider allows for administration of a medication prescribed for a lower pain scale. If given for pain, use the following pain scale: Mild Pain = Pain Score of 1-3, CPOT 1-2 Moderate Pain = Pain Score of 4-6, CPOT 3-4 Severe Pain = Pain Score of 7-10, CPOT 5-8 naloxone (NARCAN) injection 0.4 mg(Linked Group 5) 0.4 mg, Intravenous, Every 5 Minutes PRN, Respiratory Depression, Starting on Tue05/26/25 at 2227, If respiratory rate is less than 8 breaths/minute or patient is difficult to arouse stop any narcotics and contact physician. Administer slow IV push. Repeat as ordered until patient's respiratory rate is greater than 12 breaths/minute. nitroglycerin (NITROSTAT) SL tablet 0.4 mg 0.4 mg, Sublingual, Every 5 Minutes PRN, Chest Pain, Starting on Tue05/26/25 at 2226, If Pain Unrelieved After 3 Doses Notify MD May administer up to 3 doses per episode. Hold if SBP less than 100. ondansetron (ZOFRAN) injection 4 mg 4 mg, Intravenous, Every 6 Hours PRN, Nausea, Vomiting, Starting on 05/26/25 at 2228, If BOTH ondansetron (ZOFRAN) and promethazine (PHENERGAN) are ordered use ondansetron first and THEN promethazine IF ondansetron is ineffective. Phosphorus Replacement - Follow Nurse / BPA Driven Protocol Open Order & Select [facility] Electrolyte Replacement Protocol Algorithm to View Details polyethylene glycol (MIRALAX) packet 17 g(Linked Group 4) 17 g, Oral, Daily PRN, Constipation, Use if senna-docusate is ineffective, Starting on Tue05/26/25 at 2227, Use if no bowel movement after 12 hours. Mix in 6-8 ounces of water. Use 4-8 ounces of water, tea, or juice for each 17 gram dose. Potassium Replacement - Follow Nurse / BPA Driven Protocol Open Order & Select [facility] Electrolyte Replacement Protocol Algorithm to View Details sennosides-docusate (PERICOLACE) 8.6-50 MG per tablet 2 tablet(Linked Group 4) 2 tablet, Oral, 2 Times Daily PRN, Constipation, Starting on Tue05/26/25 at 2227, Start bowel management regimen if patient has not had a bowel movement after 12 hours. sodium chloride 0.9 % flush 10 mL 10 mL, Intravenous, As Needed, Line Care, Starting on 05/26/25 at 2208 sodium chloride 0.9 % flush 10 mL 10 mL, Intravenous, As Needed, Line Care, Starting on Tue05/26/25 at 2225 2258 (Given - Provider: Nino Ordonez RN) Linked Groups Order Group 1: arformoterol (BROVANA) nebulizer solution 15 mcgJump to med 15 mcg, Nebulization, 2 Times Daily - RT, First dose on Tue05/27/25 at 0000, Include Respiratory Treatment Education Keep refrigerated., Indications: Chronic Obstructive Pulmonary Disease And budesonide (PULMICORT) nebulizer solution 0.5 mgJump to med 0.5 mg, Nebulization, 2 Times Daily - RT, First dose on Tue05/27/25 at 0000, Include Respiratory Treatment Education Do not shake. Protect from light., Indications: Chronic Obstructive Pulmonary Disease And revefenacin (YUPELRI) nebulizer solution 175 mcgJump to med 175 mcg, Nebulization, Daily - RT, First dose on Tue05/27/25 at 0930, Include Respiratory Treatment Education, Indications: Chronic Obstructive Pulmonary Disease Group 2: aspirin chewable tablet 81 mgJump to med 81 mg, Oral, Daily, First dose on Tue05/27/25 at 0900, If patient fails dysphagia, PA option MUST be given. Do not exceed 4 grams of aspirin in a 24 hr period. If given for pain, use the following pain scale: Mild Pain = Pain Score of 1-3, CPOT 1-2 Moderate Pain = Pain Score of 4-6, CPOT 3-4 Severe Pain = Pain Score of 7-10, CPOT 5-8 Or aspirin suppository 300 mgJump to med 300 mg, Rectal, Daily, First dose on Tue05/27/25 at 0900, If patient fails dysphagia, PA option MUST be given. Do not exceed 4 grams of aspirin in a 24 hr period. If given for pain, use the following pain scale: Mild Pain = Pain Score of 1-3, CPOT 1-2 Moderate Pain = Pain Score of 4-6, CPOT 3-4 Severe Pain = Pain Score of 7-10, CPOT 5-8 Group 3: acetaminophen (TYLENOL) tablet 650 mgJump to med 650 mg, Oral, Every 4 Hours PRN, Mild Pain, Starting on 05/26/25 at 2227, If given for fever, use fever parameter: fever greater than 100.4 F Based on patient request - if ordered for moderate or severe pain, provider allows for administration of a medication prescribed for a lower pain scale. Do not exceed 4 grams of acetaminophen in a 24 hr period. Max dose of 2gm for AST/ALT greater than 120 units/L. If given for pain, use the following pain scale: Mild Pain = Pain Score of 1-3, CPOT 1-2 Moderate Pain = Pain Score of 4-6, CPOT 3-4 Severe Pain = Pain Score of 7-10, CPOT 5-8 Or acetaminophen (TYLENOL) 160 MG/5ML oral solution 650 mgJump to med 650 mg, Oral, Every 4 Hours PRN, Mild Pain, Starting on 05/26/25 at 2227, If given for fever, use fever parameter: fever greater than 100.4 F Based on patient request - if ordered for moderate or severe pain, provider allows for administration of a medication prescribed for a lower pain scale. Do not exceed 4 grams of acetaminophen in a 24 hr period. Max dose of 2gm for AST/ALT greater than 120 units/L. If given for pain, use the following pain scale: Mild Pain = Pain Score of 1-3, CPOT 1-2 Moderate Pain = Pain Score of 4-6, CPOT 3-4 Severe Pain = Pain Score of 7-10, CPOT 5-8 Or acetaminophen (TYLENOL) suppository 650 mgJump to med 650 mg, Rectal, Every 4 Hours PRN, Mild Pain, Starting on Tue05/26/25 at 2227, If given for fever, use fever parameter: fever greater than 100.4 F Based on patient request - if ordered for moderate or severe pain, provider allows for administration of a medication prescribed for a lower pain scale. Do not exceed 4 grams of acetaminophen in a 24 hr period. Max dose of 2gm for AST/ALT greater than 120 units/L. If given for pain, use the following pain scale: Mild Pain = Pain Score of 1-3, CPOT 1-2 Moderate Pain = Pain Score of 4-6, CPOT 3-4 Severe Pain = Pain Score of 7-10, CPOT 5-8 Group 4: sennosides-docusate (PERICOLACE) 8.6-50 MG per tablet 2 tabletJump to med 2 tablet, Oral, 2 Times Daily PRN, Constipation, Starting on Tue05/26/25 at 2227, Start bowel management regimen if patient has not had a bowel movement after 12 hours. And polyethylene glycol (MIRALAX) packet 17 gJump to med 17 g, Oral, Daily PRN, Constipation, Use if senna-docusate is ineffective, Starting on Tue05/26/25 at 2227, Use if no bowel movement after 12 hours. Mix in 6-8 ounces of water. Use 4-8 ounces of water, tea, or juice for each 17 gram dose. And bisacodyl (DULCOLAX) EC tablet 5 mgJump to med 5 mg, Oral, Daily PRN, Constipation, Use if polyethylene glycol is ineffective, Starting on 05/26/25 at 2227, Use if no bowel movement after 12 hours. Swallow whole. Do not crush, split, or chew tablet. And bisacodyl (DULCOLAX) suppository 10 mgJump to med 10 mg, Rectal, Daily PRN, Constipation, Use if bisacodyl oral is ineffective, Starting on 05/26/25 at 2227, Use if no bowel movement after 12 hours. Hold for diarrhea Group 5: morphine injection 1 mgJump to med 1 mg, Intravenous, Every 4 Hours PRN, Moderate Pain, Starting on 05/26/25 at 2227, For 5 days, Based on patient request - if ordered for moderate or severe pain, provider allows for administration of a medication prescribed for a lower pain scale. If given for pain, use the following pain scale: Mild Pain = Pain Score of 1-3, CPOT 1-2 Moderate Pain = Pain Score of 4-6, CPOT 3-4 Severe Pain = Pain Score of 7- 10, CPOT 5-8 And naloxone (NARCAN) injection 0.4 mgJump to med 0.4 mg, Intravenous, Every 5 Minutes PRN, Respiratory Depression, Starting on 05/26/25 at 2227, If respiratory rate is less than 8 breaths/minute or patient is difficult to arouse stop any narcotics and contact physician. Administer slow IV push. Repeat as ordered until patient's respiratory rate is greater than 12 breaths/minute. documented in this encounter Care Teams Cloth Finisher Relationship Specialty Start Date End Date Ramos Dominguez MD [address] [place] [address] PCP - General Family Medicine 05/28/25 documented as of this encounter
[2025-07-01 20:09] LABS: Hematocrit 50.1 % (42.0-52.0); Hemoglobin 15.7 g/dL (14.1-18.0); Immature Granulocytes % 0.5 %; Mean Corpuscular HGB Conc 31.3 g/dL (31.8-35.4); Mean Corpuscular Hemoglobin 28.6 pg (27.0-31.2); Mean Corpuscular Volume 91.3 fl (80-94); Nucleated Red Blood Cells % 0 %; Platelet Count 261 K/mm3 (142-424); Red Blood Count 5.49 M/mm3 (4.60-6.20); Red Cell Distribution Width-SD 47.6 fL; White Blood Count 14.1 K/mm3 (4.8-10.8)
[2025-07-01 21:22] LABS: Total Cells Counted 100
[2025-07-01 21:59] LABS: Alanine Aminotransferase 21 U/L (12-78); Albumin Level 4.7 g/dl (3.5-5.0); Albumin/Globulin Ratio 1.4 (1.1-1.8); Alkaline Phosphatase 81 U/L (38-126); Anion Gap 15.1 mEq/L (5-15); Aspartate Amino Transferase 22 U/L (17-59); Bilirubin,Total 1.3 mg/dl (0.2-1.3); Blood Urea Nitrogen 21 mg/dl (9-20); Calcium 10.1 mg/dl (8.4-10.2); Carbon Dioxide 28 mmol/L (22.0-30.0); Chloride 102 mmol/L (98-107); Cholesterol 147 mg/dl (140-200); Creatinine,Serum 1.10 mg/dl (0.66-1.25); Estimated Glomerular Filt Rate 63 ml/min (>60); GFR (African American) 77 ML/MIN (>60); Globulin 3.3 g/dL (1.3-3.2); Glucose 121 mg/dl (74-100); HDL Cholesterol 41 mg/dl (40-60); Potassium 5.1 mmoL/L (3.5-5.1); Sodium 140 mmol/L (136-145); Total Protein,Serum 8.0 g/dl (6.3-8.2); Triglycerides 140 mg/dl (30-150)
--- OUTSIDE RECORDS SUMMARY | 2025-07-02 10:05 | XMS_ITS | Encounter Summary ---
[facility] Address [address] [place] [address] Care Team Providers Care Blueprint Assembler Name Role Phone Ramos Dominguez MD Primary Care Provider [phone] Encounter Details Date Type Department Care Team (Late st Contact Info) Description 05/29/2025 Readmission Management [facility] [address] [place] [id number] Romana Morales RN Social History Tobacco Use Types Packs/Day Years Used Date Smoking Tobacco: Every Day Cigarettes 1 65.7 Started: 1961 Passive Smoke Exposure: Current Smokeless Tobacco: Never Alcohol Use Standard Drinks/Week Comments Never 0 (1 standard drink = 0.6 oz pur e alcohol) [facility] Utilities Answer Date Recorded In the past 12 months has e electric, gas, oil, or water company threatened [...] Arrangements home 05/04 Potentially Unsafe Housing Conditions pa boy unable to answer;other (see comments) 05/27/2025 Employment [...] Patient unable to answer 05/27/2025 Preferred Language Bulgarian 05/27/2025 Sex and Gender Information Value Date Recorded Sex Assigned at Not on file Legal Sex Male 6:42 PM EDT Gender Identity Not on file Sexual Orientation Not on file documented as of this encounter Miscellaneous Notes * Outreach Note - Romana Morales RN - 05/29/2025 9:00 AM EDT Images from the original note were not included. Stroke Week 1 Survey Flowsheet Row [facility] the patient have one of the following disease processes/diagnoses(primary or secondary)? Stroke Week 1 attempt successful? Yes Call start time 904 Call end time 908 Discharge diagnosis Stroke Meds reviewed with patient/caregiver? Yes Is the patient having any side effects they believe may be caused by any medication additions or changes? No Does the patient have all medications ordered at discharge? Yes Is the patient taking all medications as directed (includes completed medication regime)? Yes Does the patient have a primary care provider? Yes Does the patient have an appointment with their PCP within 7 days of discharge? Yes Has the patient kept scheduled appointments due by today? N/A [facility] requests you follow up with them within 30 days for important follow up care. Please call [phone] to schedule this appointment. Thank you. Yes [08/14/25] Has home health visited the patient within 72 hours of discharge? N/A Psychosocial issues? No Does the patient require any assistance with activities of daily living such as eating, bathing, dressing, walking, etc.? No Does the patient have any residual symptoms from stroke/TIA? No Did the patient receive a copy of their discharge instructions? Yes Nursing interventions Reviewed instructions with patient What is the patient's perception of their health status since discharge? Improving Nursing interventions Nurse provided patient education Is the patient/caregiver able to teach back the risk factors for a stroke? High blood pressure-goalbelow 120/80, High Cholesterol, Carotid or other artery disease, Smoking Is the patient/caregiver able to teach back the hierarchy of who to call/visit for symptoms/problems? PCP, Specialist, Home health nurse, Urgent Care, ED, 911 Yes Is the patient able to teach back FAST for Stroke? T evan: Call right away, S peech: Listen for slurred speech, A rm: Check if one arm is weak, F miles: Look for an uneven smile, E yes: Check for vision loss, B alance: Watch for sudden loss of balance Week 1 call completed? Yes Wrap up additional comments Pt reports he is doing ok. reviewed BEFAST with Pt. Pt has appt in place for PCP and stroke clinic. Pt has meds ans reports taking as ordered. Call end time [phone] ROMANA Galindo - Registered Nurse documented in this encounter Plan of Treatment Upcoming Encounters Date Type Department Care Team (Late st Contact Info) Description 08/09/2025 11:30 AM EST Office Visit [facility] NE[facility] [address] [place] [phone] Elicia Balderrama, HEALTH SUPPORT SPECIALIST [address] [facility] [address] [place] [address] documented as of this encounter Visit Diagnoses Not on filedocumented in this encounter Care Teams Blueprint Assembler Relationship Specialty Start Date End Date Ramos Dominguez MD [facility] [place] [address] PCP - General Family Medicine 05/28/25 documented as of this encounter
--- OUTSIDE RECORDS SUMMARY | 2025-07-02 10:05 | XMS_ITS | Encounter Summary ---
Author Organization [facility] Address [address] [place] [address] Care Team Providers Care Artist'S Manager Name Role Phone Ramos Dominguez MD Primary Care Provider +1- [phone] Encounter Details Date Type Department Care Team (Late st Contact Info) Description 05/28/2025 Readmission Management [facility] [address] [place] [phone] Renetta Kinsey RN Social History Tobacco Use Types Packs/Day Years Used Date Smoking Tobacco: Every Day Cigarettes 1 65.7 Started: 1961 Passive Smoke Exposure: Current Smokeless Tobacco: Never Alcohol Use Standard Drinks/Week Comments Never 0 (1 standard drink = 0.6 oz pur e alcohol) [facility] Utilities Answer Date Recorded In the past 12 months has th e electric, gas, oil, or water company [...] Patient unable to answer 05/27/2025 Preferred Language Macedonian 05/27/2025 Sex and Gender Information Value Date Recorded Sex Assigned at Not on file Legal Sex Male 6:42 PM EDT Gender Identity Not on file Sexual Orientation Not on file documented as of this encounter Miscellaneous Notes * Outreach Note - Renetta Kinsey RN - 05/28/2025 8:02 PM EDT Prep Survey Flowsheet Row Responses [facility] facility patient discharged from? [place] Is LACE score less than 10 ? Yes Eligibility Readm Mgmt Discharge diagnosis Stroke Does the patient have one of the following disease processes/diagnoses(primary or secondary)? Stroke Does the patient have Home health ordered? No Is there a DME ordered? No Prep survey completed? Yes RENETTA Ramos - Registered Nurse documented in this encounter Plan of Treatment Upcoming Encounters Date Type Department Care Team (Late st Contact Info) Description 08/09/2025 11:30 AM EST Office Visit [facility]UR[facility] [address] [facility] [address] [place] [id number] Elicia Balderrama APRN [address] [facility] [address] [address] documented as of this encounter Visit Diagnoses Not on filedocumented in this encounter Care Teams Artist'S Manager Relationship Specialty Start Date End Date Ramos Dominguez MD [address] [place] [address] PCP - General Family Medicine 05/28/25 documented as of this encounter
--- OUTSIDE RECORDS SUMMARY | 2025-07-02 10:05 | XMS_ITS | Encounter Summary ---
Author Organization [facility] Address [address] [place] [address] Care Team Providers Care Curing Press Operator Name Role Phone Ramos Dominguez MD Primary Care Provider [phone]- [phone] Encounter Details Date Type Department Care Team (Late st Contact Info) Description 05/29/2025 Telephone [facility]UR[facility] [address] [facility] [address] [place] [address] Elicia Balderrama APRN [address] [facility] [address] [address] Social History Tobacco Use Types Packs/Day Years Used Date Smoking Tobacco: Every Day Cigarettes 1 65.7 Started: 1961 Passive Smoke Exposure: Current Smokeless Tobacco: Never Alcohol Use Standard Drinks/Week Comments Never 0 (1 standard drink = 0.6 oz pur e alcohol) [facility] Utilities Answer Date Recorded In the past 12 months has [employer], gas, oil, or water [employer] threatened to shut off services in your [...] home 05/04 Potentially Unsafe Housing Conditions pa tient unable to answer;other (see comments) 05/27/2025 Employment [...] Patient unable to answer 05/27/2025 Preferred Language Nepali 05/27/2025 Sex and Gender Information Value Date Recorded Sex Assigned at Not on file Legal Sex Male 6:42 PM EDT Gender Identity Not on file Sexual Orientation Not on file documented as of this encounter Miscellaneous Notes * Telephone Encounter - Charissa Healy RegSched Rep - 05/29/2025 10:53 AM EDT CALLED PT ON 05/29/25 AT 110:52 AM TO SEE IF THE PT WANTED TO BE SEEN SOONER FOR HIS HOSP F/U. PT STATED HE WILL KEEP HIS ORIGINAL APPT. documented in this encounter Plan of Treatment Upcoming Encounters Date Type Department Care Team (Late st Contact Info) Description 08/09/2025 11:30 AM EST Office Visit [facility]UR[facility] [address] [facility] [address] [place] [phone] Elicia Balderrama, CECI [address] [facility] [address] [place] [phone] documented as of this encounter Visit Diagnoses Not on filedocumented in this encounter Care Teams Curing Press Operator Relationship Specialty Start Date End Date Ramos Dominguez MD [facility] [place] [address] PCP - General Family Medicine 05/28/25 documented as of this encounter
--- OUTSIDE RECORDS SUMMARY | 2025-07-02 10:05 | XMS_ITS | Encounter Summary ---
Author Organization [facility] Address [address] [place] [address] Care Team Providers Care Log Preparer Name Role Phone Provider, No Known Primary Care Provider Unavail able Encounter Details Date Type Department Care Team (Latest Contact Info) Description 05/27/2025 Travel Social History Tobacco Use Types Packs/Day Years Used Date Smoking Tobacco: Every Day Cigarettes 1 65.7 Started: 1960 Passive Smoke Exposure: Current Smokeless Tobacco: Never Alcohol Use Standard Drinks/Week Comments Never 0 (1 standard drink = 0.6 oz pur e alcohol) [facility] Utilities Answer Date Recorded In the past 12 months has [employer], gas, oil, or water [employer] threatened to shut off services in your [...] Patient unable to answer 05/27/2025 Preferred Language Citizen Of [place] 05/27/2025 Sex and Gender Information Value Date Recorded Sex Assigned at Not on file Legal Sex Male 6:42 PM EDT Gender Identity Not on file Sexual Orientation Not on file documented as of this encounter Functional Status * Question Answer Date of Assessment Author 1. Wish to be (Past 1 Month) No 025 2:42 AM EDT Nino Ordonez RN 2. Non-Specific Active Suici fadumo Thoughts (Past 1 Month) No 05/27/2025 2:42 AM EDT Nino Ordonez RN * Calculated C-SSRS Risk Score (Lifetime/Recent) Answer Date of Assessment Author No Risk Indicated 05/27/2025 2:42 AM VANESSAT Nino Ordonez RN * [place] Suicide Severity Rating Scale (Screener/Recent Self-Report) Question Answer Date of Assessment Author 6. Suicidal Behavior (Lifetime) No 2:42 AM VANESSAT Nino Ordonez RN documented as of this encounter Plan of Treatment Upcoming Encounters Date Type Department Care Team (Late st Contact Info) Description 08/09/2025 11:30 AM EST Office Visit [facility]UR[facility] [address] [facility] [address] [place] [address] Elicia Balderrama, IRONMOLDER [address] [facility] [address] [address] documented as of this encounter Visit Diagnoses Not on filedocumented in this encounter Care Teams Log Preparer Relationship Specialty Start Date End Date Provider, [place] [address] PCP - General 05/26/25 05/27/25 documented as of this encounter
--- OUTSIDE RECORDS SUMMARY | 2025-07-02 10:05 | XMS_ITS | Encounter Summary ---
Author Organization [facility] Address [address] [place] [address] Care Team Providers Care Senior Accounting Manager Name Role Phone Ramos Dominguez MD Primary Care Provider +1- [phone] Encounter Details Date Type Department Care Team (Late st Contact Info) Description 06/13/2025 Readmission Management [facility] [address] [place] [phone] Isaias De Leon, RN Social History Tobacco Use Types Packs/Day Years Used Date Smoking Tobacco: Every Day Cigarettes 1 65.7 Started: 1961 Passive Smoke Exposure: Current Smokeless Tobacco: Never Alcohol Use Standard Drinks/Week Comments Never 0 (1 standard drink = 0.6 oz pur e alcohol) [facility] Utilities Answer Date Recorded In the [...] Patient unable to answer 05/27/2025 Preferred Language [place] Citizen 05/27/2025 Sex and Gender Information Value Date Recorded Sex Assigned at Not on file Legal Sex Male 6:42 PM EDT Gender Identity Not on file Sexual Orientation Not on file documented as of this encounter Miscellaneous Notes * Outreach Note - Isaias De Leon RN - 06/13/2025 5:17 PM EDT Stroke Week [address] [facility] the patient have one of the following disease processes/diagnoses(primary or secondary)? Stroke Week 2 attempt successful? Yes Call start time 1718 Unsuccessful attempts Attempt 1 Call end time 1720 Discharge diagnosis Stroke Person spoke with today (if not patient) and relationship Patient Meds reviewed with patient/caregiver? Yes Is the [...] patient kept scheduled appointments due by today? Yes Psychosocial issues? No Does the patient require any assistance with activities of daily living such as eating, bathing, dressing, walking, etc.? No Does the patient have any residual symptoms from stroke/TIA? No Does the patient understand the diet ordered at discharge? Yes Did the patient receive a copy of their discharge instructions? Yes Nursing interventions Reviewed instructions with patient What is the patient's perception of their health status since discharge? Improving Nursing interventions Nurse provided patient education Is the patient/caregiver able to teach back signs and symptoms related to disease process for when to call PCP? Yes Is the patient/caregiver able to teach back signs and symptoms related to disease process for when to call 911? Yes If the patient is a current smoker, are they able to teach back resources for cessation? Not a smoker Is the patient/caregiver able to teach back the hierarchy of who to call/visit for symptoms/problems? PCP, Specialist, Home health nurse, Urgent Care, ED, 911 Yes Week 2 call completed? Yes Revoked No further contact(revokes)-requires comment Is the patient interested in additional calls from an ambulatory case hardener? No Would this patient benefit from a Referral to [facility] Social Work? No Wrap up additional comments Patient reports he is doing well. No needs at this time. Call end time 1720 Isaias Alexander - Registered Nurse documented in this encounter Plan of Treatment Upcoming Encounters Date Type Department Care Team (Late st Contact Info) Description 08/09/2025 11:30 AM EST Office Visit [facility] NEUR[facility] [address] [place] [address] Elicia Balderrama APRN [address] [place] [address] documented as of this encounter Visit Diagnoses Not on filedocumented in this encounter Care Teams Senior Accounting Manager Relationship Specialty Start Date End Date Ramos Dominguez MD [address] [place] [address] PCP - General Family Medicine 05/28/25 documented as of this encounter
--- OUTSIDE RECORDS SUMMARY | 2025-07-02 10:06 | XMS_ITS | Clinical Summary ---
Author Organization [facility] Address [address] [place] [address] Care Team Providers Care Artificial Flowers Dyer Name Role Phone Ramos Dominguez MD Primary Care Provider [phone]- [phone] Allergies No known active allergies Medications aspirin 81 MG chewable tablet Chew 1 tablet Daily. Active clopidogrel (PLAVIX) 75 MG tablet Take 1 tablet by mouth Daily. 19 tablet 05/28/2025 2:47 PM EDT 05/29/2025 Active albuterol sulfate HFA 108 (90 Base) MCG/ACT inhaler Inhale 2 puffs Every 4 (Four) Hours As Needed for Wheezing. 8.5 g 05/28/2025 2:47 PM EDT 05/28/2025 Active atorvastatin (LIPITOR) 40 MG tablet Take 1 tablet by mouth Daily. Active Active Problems Problem Noted Date Diagnosed Date Stroke 05/26/2025 COPD (chronic obstructive pulmonary disease) Tobacco abuse 05/26/2025 Paroxysmal atrial fibrillation 05/26/2025 ALIDA (acute kidney injury) 05/26/2025 Leukocytosis 05/26/2025 Resolved Problems Problem Noted Date Diagnosed Date Resolved Date Chronic respiratory failure 05/26/2025 05/26/2025 Chronic atrial fibrillation 05/26/2025 05/26/2025 Encounters Date Type Department Care Team Description 06/13/2025 Readmission Management [facility] [address] [place] [address] Isaias De Leon RN 05/29/2025 Telephone [facility] [address] [facility] [address] [place] [id number] Elicia Balderrama APRN 05/29/2025 Readmission Management [facility] [address] [place] [phone] Romana Morales RN 05/28/2025 Readmission Management [facility] [address] [place] [phone] Renetta Kinsey RN 05/27/2025 Travel 05/26/2025 9:51 PM EDT - 05/28/2025 3:41 PM EDT Hospital Encounter [address] [place] [id number] Estefanía Morales MD Wheeler, Chris Dill III, Elvi Pardo MD Barbato, Hayley R, Cerebrovascular accident (CVA), unspecified mechanism (Primary Dx); Transient ischemic attack (TIA); Benign paroxysmal positional vertigo of left ear Discharge Disposition: Home or Self Care from Last 3 Months Social History Tobacco Use Types Packs/Day Years Used Date Smoking Tobacco: Every Day Cigarettes 1 65.7 Started: 1960 Passive Smoke Exposure: Current Smokeless Tobacco: Never Tobacco Cessation:Ready to Q uit: No; Counseling Given: Yes Alcohol Use Standard Drinks/Week Comments Never 0 (1 standard drink = 0.6 oz pur e alcohol) [facility] Utilities Answer Date Recorded In the past 12 months has [employer], gas, oil, or water [employer] threatened to shut off services in your [...] to answer 05/27/2025 Preferred Language Citizen Of [place] 05/27/2025 Sex and Gender Information Value Date Recorded Sex Assigned at Not on file Legal Sex Male 6:42 PM EDT Gender Identity Not on file Sexual Orientation Not on file Last Filed Vital Signs Vital Sign Reading [...] Mass Index 30.52 05/27/2025 10:15 AM EDT Plan of Treatment Upcoming Encounters Date Type Department Care Team (Late st Contact Info) Description 08/09/2025 11:30 AM EST Office Visit [facility] [address] [facility] [address] [place] [address] Tacos Elicia Galindo, DROP PIT WORKER [address] [facility] [address] [place] [id number] Health Maintenance Due Date Last Done Comments TDAP/TD VACCINES (1 - Tdap) 1959 ZOSTER VACCINE (1 of 2) 1989 RSV Vaccine - Adults (1 - 1- dose 75+ series) 2014 INFLUENZA VACCINE 05/03/2025 06/13/2024, , 07/21/2022, Additional history exists ANNUAL WELLNESS VISIT 05/29/2025 COVID-19 Vaccine (5 - 2023-2 5 season) 2025 06/13/2024, 07/01/2023, 01/14/2022, Additional history exists Pneumococcal Vaccine 50+ Completed 07/17/2018, 03/2016 Procedures Procedure Name Priority Date/Time Associated Diagnosis Comments SCANNED - TELEMETRY 05/28/2025 1 2:[address] CHEST WO CONTRAST DIAGNOSTIC Routine 05/27/2025 4:51 PM EDT MRI BRAIN WO CONTRAST Routine 05/27/2025 1:06 PM EDT POCT GLUCOSE FINGERSTICK Routine 05/27/2025 11:20 AM EDT MANUAL DIFFERENTIAL STAT 05/27/2025 1 1:06 AM EDT PROTIME-INR Routine 05/27/2025 11:06 AM EDT PHOSPHORUS Routine 05/27/2025 11:06 AM EDT MAGNESIUM Routine 05/27/2025 11:06 AM EDT CBC WITH AUTO DIFFERENTIAL Routine 05/27/2025 11:06 AM EDT COMPREHENSIVE METABOLIC PANEL Routine 05/27/2025 11:06 AM EDT LIPID PANEL Urgent 05/27/2025 11:06 AM EDT HEMOGLOBIN A1C Urgent 05/27/2025 11:06 AM EDT ECHO COMPLETE W/ DOPPLER, COLOR FLOW AND CONTRAST Routine 05/27/2025 10:15 AM EDT POCT GLUCOSE FINGERSTICK Routine 05/27/2025 7:10 AM EDT XR CHEST 1 VW Routine 05/27/2025 5:25 AM EDT URINALYSIS W/ CULTURE IF INDICATED STAT 05/27/2025 4:18 AM EDT C-REACTIVE PROTEIN STAT 05/27/2025 12 :20 AM EDT LACTIC ACID, PLASMA STAT 05/27/2025 1 2:20 AM EDT PROCALCITONIN STAT 05/27/2025 12:20 AM EDT PHOSPHORUS STAT 05/27/2025 12:20 AM EDT CK STAT 05/27/2025 12:20 AM EDT MAGNESIUM STAT 05/27/2025 12:20 AM EDT BASIC METABOLIC PANEL STAT 05/27/2025 12:20 AM EDT CBC (NO DIFF) STAT 05/27/2025 12:20 AM EDT ECG 12-LEAD STAT 05/27/2025 12:07 AM EDT RESPIRATORY PANEL PCR W/ COVID-19 (SARS-COV-2), SALES AND SERVICE CONSULTANT SWAB IN UTM/VTP, 2 HR TAT Routine 05/27/2025 12:02 AM EDT CHEST PHYSIOTHERAPY Routine 05/26/2025 1 1:08 PM EDT OSCILLATING POSITIVE EXPIRATORY PRESSURE (OPEP) Routine 05/26/2025 11:08 PM EDT OSCILLATING POSITIVE EXPIRATORY PRESSURE (OPEP) Routine 05/26/2025 11:08 PM EDT POCT GLUCOSE FINGERSTICK Routine 05/26/2025 9:[address] OUTSIDE HEAD Routine 05/26/2025 12:[address] OUTSIDE HEAD Routine 05/26/2025 12:[address] OUTSIDE NECK Routine 05/26/2025 12:00 AM EDT from Last 3 Months Results * Telemetry Scan (05/28/2025 12:25 PM EDT) [facility] ECG ORDERABLES Final Result * CT Chest Without Contrast Diagnostic (05/27/2025 4:51 PM EDT) Anatomical Region Laterality Modality Chest N/A Computed Tomogra phy 05/27/2025 4:56 PM EDT Impressions 05/27/2025 5:01 PM EDT Impression: CT scan of the chest without IV contrast demonstrating mild emphysema. No active disease is seen. Consider low-dose screening CT scan of the chest if the patient meets criteria. Electronically Signed: Malick Lake MD 05/27/2025 5:01 PM EDT Workstation ID: [id number] Narrative 05/27/2025 5:[address] CHEST [...] MD 05/27/2025 5:01 PM EDT Workstation ID: [id number] Rose Marie Melara DO [facility] CT ORDERABLES Final Resu lt * MRI Brain Without Contrast (05/27/2025 1:06 PM EDT) Anatomical Region Laterality Modality Head, Neck N/A Magnetic Resonan ce 05/27/2025 1:09 PM EDT Impressions 05/27/2025 1:13 PM EDT Impression: 1.No acute intracranial abnormality. 2.Mild chronic microvascular ischemic changes. Electronically Signed: Flavia Doherty MD 05/27/2025 1:13 PM EDT Workstation ID: [id number] Narrative 05/27/2025 1:13 PM EDT MRI BRAIN [...] MD 05/27/2025 1:13 PM EDT Workstation ID: [id number] us Nga Delacruz DROP PIT WORKER IMG MRI ORDERABLES Final Res ult * POC Glucose Once (05/27/2025 11:20 AM EDT) Only the most recent of3 resultswithin the time period is included. Glucose 110 70 - 130 mg/dL 05/27/2025 11:25 AM EDT [facility] Comment:Serial Number: [id number] Blood 05/27/2025 11:2 0 AM EDT 05/27/2025 11:25 AM EDT Rose Marie Melara DO POINT OF CARE TEST ORDERABLE S Final Result [facility]
[address] [place] [address], * (ABNORMAL) CBC Auto Differential (05/27/2025 11:06 AM EDT) [facility] WBC 17.91(H) 3.40 - 10.80 10*3/mm3 05/27/2025 12:18 PM EDT [facility] RBC 4.97 4.14 - 5.80 10*6/mm3 05/27/2025 12:18 PM EDT [facility] Hemoglobin 14.3 13.0 - 17.7 g/dL 05/27/2025 12:18 PM EDT [facility] Hematocrit 43.9 37.5 - 51.0 % 05/27/2025 12:18 PM EDT [facility] MCV 88.3 79.0 - 97.0 fL 05/27/2025 12:18 PM EDT [facility] MCH 28.8 26.6 - 33.0 pg 05/27/2025 12:18 PM EDT [facility] MCHC 32.6 31.5 - 35.7 g/dL 05/27/2025 12:18 PM EDT [facility] RDW 14.3 12.3 - 15.4 % 05/27/2025 12:18 PM EDT [facility] RDW-SD 46.4 37.0 - 54.0 fl 05/27/2025 12:18 PM EDT [facility] MPV 9.4 6.0 - 12.0 fL 05/27/2025 12:18 PM EDT [facility] Platelets 235 140 - 450 10*3/mm3 05/27/2025 12:18 PM EDT [facility] Blood Venipuncture / Unknown 05/27/2025 11:06 AM EDT 05/27/2025 11:11 AM EDT Narrative [facility] - 05/27/2025 12:18 PM EDT The previously reported component NRBC is no longer being reported. Previous result was 0.0 /100 WBC (Reference Range: 0.0-0.2 /100 WBC) on 05/27/2025 at 1120 EDT. us Elvi Sandoval MD LAB BLOOD ORDERABLES Final Re sult [facility]
[address] [place] [address], * (ABNORMAL) Manual Differential (05/27/2025 11:06 AM EDT) Neutrophil % 40.0(L) 42.7 - 76.0 % 05/27/2025 12:18 PM EDT [facility] Lymphocyte % 16.0(L) 19.6 - 45.3 % 05/27/2025 12:18 PM EDT [facility] Monocyte % 0.0(L) 5.0 - 12.0 % 05/27/2025 12:18 PM EDT [facility] Eosinophil % 0.0(L) 0.3 - 6.2 % 05/27/2025 12:18 PM EDT [facility] Basophil % 0.0 0.0 - 1.5 % 05/27/2025 12:18 PM EDT [facility] Atypical Lymphocyte % 44.0(H) 0.0 - 5.0 % 05/27/2025 12:18 PM EDT [facility] Neutrophils Absolute 7.16(H) 1.70 - 7.00 10*3/mm3 05/27/2025 12:18 PM EDT [facility] Lymphocytes Absolute 10.75(H) 0.70 - 3.10 10*3/mm3 05/27/2025 12:18 PM EDT [facility] Monocytes Absolute 0.00(L) 0.10 - 0.90 10*3/mm3 05/27/2025 12:18 PM EDT [facility] Eosinophils Absolute 0.00 0.00 - 0.40 10*3/mm3 05/27/2025 12:18 PM EDT [facility] Basophils Absolute 0.00 0.00 - 0.20 10*3/mm3 05/27/2025 12:18 PM EDT [facility] RBC Morphology Normal Normal 05/27/2025 12:18 PM EDT [facility] WBC Morphology Normal Normal 05/27/2025 12:18 PM EDT [facility] Platelet Morphology Normal Normal 05/27/2025 12:18 PM EDT [facility] Blood Venipuncture / Unknown 05/27/2025 11:06 AM EDT 05/27/2025 11:11 AM EDT Elvi Sandoval MD LAB BLOOD ORDERABLES Final Re sult [facility]
[address] [place] [address], * Protime-INR (05/27/2025 11:06 AM EDT) Protime 14.4 12.2 - 15.3 Seconds 05/27/2025 11:37 AM EDT [facility] INR 1.06 0.89 - 1.12 05/27/2025 11:37 AM EDT [facility] Blood Venipuncture / Unknown 05/27/2025 11:06 AM EDT 05/27/2025 11:11 AM EDT Elvi Sandoval MD LAB BLOOD ORDERABLES Final Re sult Performing Organization Address City/[facility] Co de Phone Number [facility]
[address] [place] [address], * Phosphorus (05/27/2025 11:06 AM EDT) Only the most recent of2 resultswithin the time period is included. Phosphorus 2.5 2.5 - 4.5 mg/dL 05/27/2025 11:49 AM EDT [facility] Blood Venipuncture / Unknown 05/27/2025 11:06 AM EDT 05/27/2025 11:11 AM EDT Elvi Sandoval MD LAB BLOOD ORDERABLES Final Re sult Performing Organization Address [facility] de Phone Number [facility]
[address] [place] [address], * Magnesium (05/27/2025 11:06 AM EDT) Only the most recent of2 resultswithin the time period is included. Magnesium 2.0 1.6 - 2.4 mg/dL 05/27/2025 11:49 AM EDT [facility] Blood Venipuncture / Unknown 05/27/2025 11:06 AM EDT 05/27/2025 11:11 AM EDT Elvi Sandoval MD LAB BLOOD ORDERABLES Final Re sult Performing Organization Address City/[facility] Co de Phone Number [facility]
[address] [place] [address], * (ABNORMAL) Hemoglobin A1c (05/27/2025 11:06 AM EDT) Hemoglobin A1C 6.00(H) 4.80 - 5.60 % 05/27/2025 11:43 AM EDT [facility] Blood Venipuncture / Unknown 05/27/2025 11:06 AM EDT 05/27/2025 11:11 AM EDT [facility] - 05/27/2025 11:43 AM EDT Hemoglobin A1C Ranges: Increased Risk for Diabetes 5.7% to 6.4% Diabetes >= 6.5% Diabetic Goal < 7.0% Nga Delacruz [employer] P[employer] WORKER LAB BLOOD ORDERABLES Final R esult [facility]
[address] [place] [address], * (ABNORMAL) Lipid Panel (05/27/2025 11:06 AM EDT) Total Cholesterol 106 0 - 200 mg/dL 05/27/2025 11:49 AM EDT [facility] Triglycerides 81 0 - 150 mg/dL 05/27/2025 11:49 AM EDT [facility] HDL Cholesterol 32(L) 40 - 60 mg/dL 05/27/2025 11:49 AM EDT [facility] LDL Cholesterol 58 0 - 100 mg/dL 05/27/2025 11:49 AM EDT [facility] VLDL Cholesterol 16 5 - 40 mg/dL 05/27/2025 11:49 AM EDT [facility] LDL/HDL Ratio 1.81 05/27/2025 11:49 AM EDT [facility] Blood Venipuncture / Unknown 05/27/2025 11:06 AM EDT 05/27/2025 11:11 AM EDT [facility] - 05/27/2025 11:49 AM EDT Cholesterol [...] is calculated using the NIH LDL-C calculation. Nga Delacruz [employer] P[employer] WORKER LAB BLOOD ORDERABLES Final R esult [facility]
[address] [place] [address], * (ABNORMAL) Comprehensive Metabolic Panel (05/27/2025 11:06 AM EDT) [facility] Glucose 109(H) 65 - 99 mg/dL 05/27/2025 11:49 AM EDT [facility] BUN 17.4 8.0 - 23.0 mg/dL 05/27/2025 11:49 AM EDT [facility] Creatinine 0.88 0.76 - 1.27 mg/dL 05/27/2025 11:49 AM EDT [facility] Sodium 136 136 - 145 mmol/L 05/27/2025 11:49 AM EDT [facility] Potassium 3.9 3.5 - 5.2 mmol/L 05/27/2025 11:49 AM EDT [facility] Chloride 105 98 - 107 mmol/L 05/27/2025 11:49 AM EDT [facility] CO2 22.2 22.0 - 29.0 mmol/L 05/27/2025 11:49 AM EDT [facility] Calcium 9.0 8.6 - 10.5 mg/dL 05/27/2025 11:49 AM EDT [facility] Total Protein 6.3 6.0 - 8.5 g/dL 05/27/2025 11:49 AM [facility] Albumin 3.8 3.5 - 5.2 g/dL 05/27/2025 11:49 AM [facility] ALT (SGPT) 12 1 - 41 U/L 05/27/2025 11:49 AM [facility] AST (SGOT) 17 1 - 40 U/L 05/27/2025 11:49 AM [facility] Alkaline Phosphatase 78 39 - 117 U/L 05/27/2025 11:49 AM [facility] Total Bilirubin 0.8 0.0 - 1.2 mg/dL 05/27/2025 11:49 AM [facility] Globulin 2.5 gm/dL 05/27/2025 11:49 AM [facility] Comment:Calculated Result A/G Ratio 1.5 g/dL 05/27/2025 11:49 AM [facility] BUN/Creatinine Ratio 19.8 7.0 - 25.0 05/27/2025 11:49 AM [facility] Anion Gap 8.8 5.0 - 15.0 mmol/L 05/27/2025 11:49 AM [facility] eGFR 83.7 >60.0 mL/min/1.7 3 05/27/2025 11:49 AM [facility] Blood Venipuncture / Unknown 05/27/2025 11:06 AM EDT 05/27/2025 11:11 AM [facility] - 05/27/2025 11:49 AM EDT [...] MD LAB BLOOD ORDERABLES Final Re sult [facility]
[address] [place] [id number], [place] [phone] * ECHO COMPLETE W/ DOPPLER, COLOR FLOW [...] 2.6 mmHg Ao V2 VTI 24.6 cm NITIN(I,D) 2.14 cm2 Dimensionless Index 0.65 (DI) MV [...] was wasted and discarded. us Nga Delacruz [employer] PIT WORKER CV ECHO ORDERABLES Final Res ult * XR Chest 1 View (05/27/2025 5:25 [...] MD 05/27/2025 7:24 AM EDT Workstation ID: [id number] Narrative 05/27/2025 7:24 AM EDT XR CHEST [...] MD 05/27/2025 7:24 AM EDT Workstation ID: [id number] Elvi Sandoval MD IMG DIAGNOSTIC IMAGING ORDERA BLES Final Result * (ABNORMAL) Urinalysis With Culture If Indicated - Urine, Clean Catch (05/27/2025 4:18 AM EDT) Color, UA Yellow Yellow, Straw 05/27/2025 4:45 AM EDT [facility] Appearance, UA Clear Clear 05/27/2025 4:45 AM T [facility] pH, UA 7.0 5.0 - 8.0 05/27/2025 4:45 AM EDT [facility] Specific [place], UA >1.030(H) 1.005 - 1.030 05/27/2025 4:45 AM EDT [facility] Glucose, UA Negative Negative 05/27/2025 4:45 AM EDT [facility] Ketones, UA Negative Negative 05/27/2025 4:[facility] Bilirubin, UA Negative Negative 05/27/2025 4:45 AM EDT [facility] Blood, UA Negative Negative 05/27/2025 4:45 AM EDT [facility] Protein, UA Negative Negative 05/27/2025 4:45 AM [facility] Leuk Esterase, UA Negative Negative 05/27/2025 4:45 AM EDT [facility] Nitrite, UA Negative Negative 05/27/2025 4:45 AM [facility] Urobilinogen, UA 1.0 E.U./dL 0.2 - 1.0 E.U./dL 05/27/2025 4:45 AM [facility] Urine Urine specimen obtained by clean catch procedure / Unknown Collection / Unknown 05/27/2025 4:18 AM EDT 05/27/2025 4:30 AM EDT [facility] - 05/27/2025 4:45 AM EDT In absence of clinical symptoms, the presence of pyuria, bacteria, and/or nitrites on the urinalysis result does not correlate with infection. Urine microscopic not indicated. us Elvi Sandoval MD URINE ORDERABLES Final Result [facility]
[address] [place] [address], * Procalcitonin (05/27/2025 12:20 AM EDT) Procalcitonin 0.03 0.00 - 0.25 ng/mL 05/27/2025 1:10 AM EDT [facility] Blood Venipuncture / Unknown 05/27/2025 12:20 AM EDT 05/27/2025 12:32 AM EDT Narrative [facility] - 05/27/2025 1:10 AM EDT [...] Day 4 values are available. Refer to http://www.ionlui-osc-wzkobdahux.com Change in PCT <=80% A decrease of [...] ORDERABLES Final Re sult Performing Organization Address City/[facility]/ZIP Co de Phone Number [facility]
[address] [place] [address], * (ABNORMAL) CBC (No Diff) (05/27/2025 12:20 AM EDT) WBC 19.36(H) 3.40 - 10.80 10*3/mm3 05/27/2025 12:51 AM EDT [facility] RBC 4.92 4.14 - 5.80 10*6/mm3 05/27/2025 12:51 AM EDT [facility] Hemoglobin 14.3 13.0 - 17.7 g/dL 05/27/2025 12:51 AM EDT [facility] Hematocrit 44.2 37.5 - 51.0 % 05/27/2025 12:51 AM EDT [facility] MCV 89.8 79.0 - 97.0 fL 05/27/2025 12:51 AM EDT [facility] MCH 29.1 26.6 - 33.0 pg 05/27/2025 12:51 AM EDT [facility] MCHC 32.4 31.5 - 35.7 g/dL 05/27/2025 12:51 AM EDT [facility] RDW 14.4 12.3 - 15.4 % 05/27/2025 12:51 AM EDT [facility] RDW-SD 47.2 37.0 - 54.0 fl 05/27/2025 12:51 AM EDT [facility] MPV 9.6 6.0 - 12.0 fL 05/27/2025 12:51 AM EDT [facility] Platelets 239 140 - 450 10*3/mm3 05/27/2025 12:51 AM EDT [facility] Blood Venipuncture / Unknown 05/27/2025 12:20 AM EDT 05/27/2025 12:49 AM EDT us Elvi Sandoval MD LAB BLOOD ORDERABLES Final Re sult [facility]
[address] [place] [address], * C-reactive Protein (05/27/2025 12:20 AM EDT) [facility] C-Reactive Protein <0.30 0.00 - 0.50 mg/dL 05/27/2025 1:03 AM EDT [facility] Blood Venipuncture / Unknown 05/27/2025 12:20 AM EDT 05/27/2025 12:32 AM EDT Elvi Sandoval MD LAB BLOOD ORDERABLES Final Re sult Performing Organization Address [facility] Co de Phone Number [facility]
[address] [place] [address], * Lactic Acid, Plasma (05/27/2025 12:20 AM EDT) [facility] Lactate 1.0 0.5 - 2.0 mmol/L 05/27/2025 1:01 AM EDT [facility] Comment:Falsely depressed re sults may occur on samples drawn from patients receiving N-Acetylcysteine (NAC) or Metamizole. Blood Venipuncture / Unknown 05/27/2025 12:20 AM EDT 05/27/2025 12:32 AM EDT Elvi Sandoval MD LAB BLOOD ORDERABLES Final Re sult Performing Organization Address City/[facility]/ZIP Co de Phone Number [facility]
[address] [place] [address], * CK (05/27/2025 12:20 AM EDT) [facility] Creatine Kinase 76 20 - 200 U/L 05/27/2025 1:03 AM EDT [facility] Blood Venipuncture / Unknown 05/27/2025 12:20 AM EDT 05/27/2025 12:32 AM EDT us Elvi Sandoval MD LAB BLOOD ORDERABLES Final Re sult [facility]
[address] [place] [address], * (ABNORMAL) Basic Metabolic Panel (05/27/2025 12:20 AM EDT) Glucose 112(H) 65 - 99 mg/dL 05/27/2025 1:03 AM EDT [facility] BUN 19.8 8.0 - 23.0 mg/dL 05/27/2025 1:03 AM EDT [facility] Creatinine 0.96 0.76 - 1.27 mg/dL 05/27/2025 1:03 AM EDT [facility] Sodium 141 136 - 145 mmol/L 05/27/2025 1:03 AM EDT [facility] Potassium 4.3 3.5 - 5.2 mmol/L 05/27/2025 1:03 AM EDT [facility] Comment:Slight hemolysis det ected by analyzer. Result may be falsely elevated. Chloride 106 98 - 107 mmol/L 05/27/2025 1:03 AM EDT [facility] CO2 26.0 22.0 - 29.0 mmol/L 05/27/2025 1:03 AM EDT [facility] Calcium 9.0 8.6 - 10.5 mg/dL 05/27/2025 1:03 AM EDT [facility] BUN/Creatinine Ratio 20.6 7.0 - 25.0 05/27/2025 1:03 AM EDT [facility] Anion Gap 9.0 5.0 - 15.0 mmol/L 05/27/2025 1:03 AM EDT [facility] eGFR 77.0 >60.0 mL/min/1.7 3 05/27/2025 1:03 AM EDT [facility] Blood Venipuncture / Unknown 05/27/2025 12:20 AM EDT 05/27/2025 12:32 AM EDT Narrative [facility] - 05/27/2025 1:03 AM EDT [...] MD LAB BLOOD ORDERABLES Final Re sult [facility]
[address] [place] [address], * ECG 12 Lead QT Measurement (05/27/2025 12:07 AM EDT) QT Interval 470 ms ECG QTC Interval [...] previous ECGs available Confirmed by RHONDA MOTA ([id number]) on 05/27/2025 11:12:49 AM Referred By: Confirmed [...] previous ECGs available Confirmed by RHONDA MOTA ([id number]) on 05/27/2025 11:12:49 AM Referred By: Confirmed By: RHONDA MOTA us Elvi Sandoval MD ECG ORDERABLES Final Result ECG * Respiratory Panel PCR w/COVID-19(SARS-CoV-2) NEFTALY/ABELARDO/TOR/PAD/COR/QUIN In-House, [employer] Swab in UTM/VTM, 2 HR TAT - Swab, Nasopharynx (05/27/2025 12:02 AM EDT) Pathologist [facility] [place] ADENOVIRUS, PCR Not Detected Not Detected BIOFIRE TOR 05/27/2025 1:02 AM EDT [facility] Coronavirus 229E Not Detected Not Detected BIOFIRE [facility] 05/27/2025 1:02 AM EDT [facility] Coronavirus HKU1 Not Detected Not Detected BIOFIRE TOR 05/27/2025 1:02 AM EDT [facility] Coronavirus NL63 Not Detected Not Detected BIOFIRE [facility] 05/27/2025 1:02 AM EDT [facility] Coronavirus OC43 Not Detected Not Detected BIOFIRE [facility]OR 05/27/2025 1:02 AM EDT [facility] COVID19 Not Detected Not Detected - Ref. Range BIOFIRE TOR 05/27/2025 1:02 AM EDT [facility] Human Metapneumovirus Not Detected Not Detected BIOFIRE TOR 05/27/2025 1:02 AM EDT [facility] Human Rhinovirus/Enterov irus Not Detected Not Detected BIOFIRE TOR 05/27/2025 1:02 AM EDT [facility] Influenza A PCR Not Detected Not Detected BIOFIRE TOR 05/27/2025 1:02 AM EDT [facility] Influenza B PCR Not Detected Not Detected BIOFIRE TOR 05/27/2025 1:02 AM EDT [facility] Parainfluenza Virus 1 Not Detected Not Detected BIOFIRE TORCH 05/27/2025 1:02 AM EDT [facility] Parainfluenza Virus 2 Not Detected Not Detected BIOFIRE TORCH 05/27/2025 1:02 AM EDT [facility] Parainfluenza Virus 3 Not Detected Not Detected BIOFIRE TOR 05/27/2025 1:02 AM EDT [facility] Parainfluenza Virus 4 Not Detected Not Detected BIOFIRE TORCH 05/27/2025 1:02 AM EDT [facility] RSV, PCR Not Detected Not Detected BIOFIRE TOR 05/27/2025 1:02 AM EDT [facility] Bordetella pertussis pcr Not Detected Not Detected BIOFIRE TOR 05/27/2025 1:02 AM EDT [facility] Bordetella parapertussis PCR Not Detected Not Detected BIOFIRE TOR 05/27/2025 1:02 AM EDT [facility] Chlamydophila pneumoniae PCR Not Detected Not Detected BIOFIRE TOR 05/27/2025 1:02 AM EDT [facility] Mycoplasma pneumo by PCR Not Detected Not Detected BIOFIRE TOR 05/27/2025 1:02 AM EDT [facility] Swab Nasopharyngeal structure / Unknown Collection / Unknown 05/27/2025 12:02 AM EDT 05/27/2025 12:09 AM EDT [facility] - 05/27/2025 1:02 AM EDT In [...] antibiotic de-escalation to target atypical bacterial infection. us Elvi Sandoval MD MICROBIOLOGY - GENERAL ORDERA BLES Final Result [facility]
[address] [place] [address], * CT Outside Head (05/26/2025 12:10 AM EDT) Only the most recent of2 resultswithin the time period is included. Narrative SYSTEMGENERATED, DOCUMENTATION - 05/27/2025 3:19 AM EDT This procedure was auto-finalized with no dictation required. us [employer] IMG CT ORDERABLES Final Re sult * CT Outside Neck (05/26/2025 12:00 AM EDT) Narrative SYSTEMGENERATED, DOCUMENTATION - 05/27/2025 3:18 AM EDT This procedure was auto-finalized with no dictation required. us [employer] Outside Films IMG CT ORDERABLES Final Re sult from Last 3 Months Insurance MEDICARE ADVANTAGE PPO Advance Directives * CPR (Attempt to Resuscitate) (Latest Code Status on File) Date Activated Date Inactivated Comments 05/26/2025 10:28 PM 05/28/2025 5:46 PM Question Answer Comments Code Status (Patient has no pulse and is not breathing): CPR (Attempt to Resuscitate) Medical Interventions (Patie nt has pulse or is breathing): Full Support Level Of Support Discussed With: Patient Care Teams Artificial Flowers Dyer Relationship Specialty Start Date End Date Ramos Dominguez MD [address] [place] [address] PCP - General Family Medicine 05/28/25
== END 2025-07-01 23:59 ==
LOC: LAB.DROPOF 07-02 09:55
PROVIDERS: PCP Family Medicine; Visit Provider Family Medicine
DX: C91.10 Chronic lymphocytic leukemia of B-cell type not having achieved remission (principal); E78.5 Hyperlipidemia, unspecified
CPT/HCPCS: 80053; 80061; 85007; 85025

== ENCOUNTER 2025-09-30 15:11 | Outpatient (CLI) | payer MEDICARE, SELFPAY ==
[2025-09-30 20:26] LABS: Hematocrit 53.2 % (42.0-52.0); Hemoglobin 16.8 g/dL (14.1-18.0); Immature Granulocytes % 0.3 %; Mean Corpuscular HGB Conc 31.6 g/dL (31.8-35.4); Mean Corpuscular Hemoglobin 28.6 pg (27.0-31.2); Mean Corpuscular Volume 90.6 fl (80-94); Nucleated Red Blood Cells % 0 %; Platelet Count 280 K/mm3 (142-424); Red Blood Count 5.87 M/mm3 (4.60-6.20); Red Cell Distribution Width-SD 48.9 fL; White Blood Count 19.2 K/mm3 (4.8-10.8)
[2025-09-30 21:16] LABS: Total Cells Counted 100
[2025-09-30 21:17] LABS: Poikilocytosis 1+; Target Cells 1+; Tear Drop Cells 1+
[2025-09-30 21:18] LABS: Anisocytosis 1+; Macrocytosis 1+
--- OUTSIDE RECORDS SUMMARY | 2025-10-01 12:01 | XMS_ITS | Clinical Summary ---
Author Organization [facility] Address [address] [place] [address] Care Team Providers Care Revenue Audit Clerk Name Role Phone Ramos Dominguez MD Primary Care Provider [phone]- [phone] Allergies No known active allergies Medications aspirin [...] 05/26/2025 05/26/2025 Chronic atrial fibrillation 05/26/2025 05/26/2025 Social History Tobacco Use Types Packs/Day Years Used Date Smoking Tobacco: Every Day Cigarettes 1 66 Started: 1960 Passive Smoke Exposure: Current Smokeless Tobacco: Never Tobacco Cessation:Ready to Q uit: No; Counseling Given: Yes Alcohol Use Standard Drinks/Week Comments Never 0 (1 standard drink = 0.6 oz pur e alcohol) [facility] Utilities Answer Date Recorded In the past 12 months has th e electric, gas, oil, or water [employer] threatened to shut off services in your [...] Patient unable to answer 05/27/2025 Preferred Language Tongan 05/27/2025 Sex and Gender Information Value Date [...] 05/27/2025 10:15 AM EDT Plan of Treatment Health Maintenance Due Date Last Done Comments TDAP/TD VACCINES (1 - Tdap) 1959 ZOSTER VACCINE (1 of 2) 1989 RSV Vaccine - Adults (1 - 1- dose 75+ series) 2014 INFLUENZA VACCINE 05/03/2025 06/13/2024, , 07/21/2022, Additional history exists ANNUAL WELLNESS VISIT 05/29/2025 COVID-19 Vaccine (5 - Modern a risk season) 2025 06/13/2024, 07/01/2023, 01/14/2022, Additional history exists Pneumococcal Vaccine 50+ Completed 07/17/2018, 03/2016 Insurance [employer] PPO Advance Directives * CPR (Attempt to Resuscitate) (Latest Code Status on File) Date Activated Date Inactivated Comments 05/26/2025 10:28 PM 05/28/2025 5:46 PM Question Answer Comments Code Status (Patient has no pulse and is not breathing): CPR (Attempt to Resuscitate) Medical Interventions (Patie nt has pulse or is breathing): Full Support Level Of Support Discussed With: Patient Care Teams Revenue Audit Clerk Relationship Specialty Start Date End Date Ramos Dominguez MD [address] [place] [address] PCP - General Family Medicine 05/28/25
== END 2025-09-30 23:59 | disposition home or self-care (01) ==
LOC: LAB.DROPOF 10-01 11:57
PROVIDERS: PCP Family Medicine; Visit Provider Family Medicine
DX: C91.10 Chronic lymphocytic leukemia of B-cell type not having achieved remission (principal)
CPT/HCPCS: 85007; 85025